=== PATIENT | female | born 1930 | race Caucasian/White ===

== ENCOUNTER 2016-08-18 13:44 | Inpatient (IN) | payer OTHER, MEDICARE ==
[~2016-08-18] VITALS: Ht 162.6 cm; Wt 65.4 kg
[~2016-08-18 13:44] MED LIST: ATOR10TA88 PO; TRIA75TA53 PO
[2016-08-18] MEDS ORDERED: SODIUM CHLORIDE 0.9% 1000ML 1,000 ML IV STA (14:44)
[2016-08-18] MEDS ORDERED: SODIUM CHLORIDE 0.9% 1000ML 500 ML IV STA (14:44)
[2016-08-18] MEDS ORDERED: PARO1TAB27 PO (15:05)
[2016-08-18] MEDS ORDERED: MAGNTAB4 PO (15:06)
--- NOTE | 2016-08-18 15:16 | DIAGNOSTIC IMAGING REPORT ---
SINGLE VIEW CHEST CLINICAL HISTORY: Weakness. Change in mental status. FINDINGS: An AP, portable, upright chest radiograph is compared to study dated 10/19/2009. Correlation is made with PET/CT dated 03/24/2014. The examination is degraded by portable technique and patient rotation. The cardiomediastinal silhouette is unremarkable. There is mild atherosclerotic calcification of the thoracic aorta. Chronic interstitial thickening is similar to previous. There is no airspace consolidation, large pleural effusion, or pneumothorax. Apical scarring is observed. The skeletal structures are osteopenic. The bony thorax is grossly intact. A surgical clip is noted in the left axilla. IMPRESSION: No active disease in the chest. Electronically signed by: Dayday Gonzalez M.D. 08/18/2016 3:15 PM Dictated Date/Time: 08/18/2016 3:13 PM
--- NOTE | 2016-08-18 15:44 | EMERGENCY ROOM VISIT NOTE ---
History Report prepared by Samanta: Alva Meng Under the Supervision of: Dr. Dayday Navarrete M.D. First contact with patient: 14:39 Chief Complaint: WEAKNESS Stated Complaint: WEAK AND DIZZY Nursing Triage Summary: Triage note: Pt ambulatory to triage. pt reports "i have a persistent edge of dizziness since being sick 3 weeks ago when i had a whole week of diarrhea." pt reports no diarrhea at this time. pt daughter reports "for the past three days she has been tired and not herself." History of Present Illness The patient is a 86 year old female who presents to the Emergency Room with complaints of intermittent lightheadedness starting about a week ago. She denies any room spinning dizziness. She has worsening symptoms with changes in position. As per daughter, the patient has been having shaking in her hands intermittently. She also complains of intermittent burning with urination. She denies chest pain, shortness of breath, numbness, tingling, blood in stool, black stools, or any other complaints. She has a history of similar symptoms occurring with low sodium and low potassium. She is unsure if she has been drinking as much fluids as she is supposed to. She was recently placed on Paxil for a treatment of chronic hot flashes. Source of History: patient Onset: about a week ago Position: other (global) Quality: other (lightheadedness) Timing: intermittent Modifying Factors (Worsening): other (changes in position) Associated Symptoms: No SOB, No chest pain, No numbness Review of Systems See HPI for pertinent positives & negatives. A total of 10 systems reviewed and were otherwise negative. Past Medical & Surgical Medical Problems: (1) Breast cancer (2) Breast cancer (3) HLD (hyperlipidemia) (4) Meniere disease (5) Urinary problem Surgical Problems: (1) H/O dilation and curettage (2) History of cataract surgery Family History Cancer Social History Smoking Status: Never Smoker Alcohol Use: none Marital Status: Occupation Status: retired Current/Historical Medications Scheduled Atorvastatin (Lipitor), 10 MG PO DAILY Magnesium Chloride-Calcium Car (Nu-Mag 71.5-119 mg), 1 TAB PO DAILY Paroxetine (Paxil), 20 MG PO DAILY Triamterene/Hctz (Maxzide 75MG/50MG), 0.5 TAB PO DAILY Allergies Coded Allergies: Alcohol (Unverified Allergy, Unknown, UNKNOWN, 08/18/16) Paclitaxel (Unverified Allergy, Unknown, UNKNOWN, 08/18/16) Polyoxyethylated [place] Oil (Unverified Allergy, Unknown, UNKNOWN, 08/18/16 ) Ezetimibe (Unverified Adverse Reaction, Unknown, "WEAK MUSCLES", 08/18/16) Physical Exam Vital Signs Date Time Temp Pulse Resp B/P Pulse Ox O2 Delivery O2 Flow Rate FiO2 08/18/16 16:35 90 18 128/78 08/18/16 14:31 104 08/18/16 14:25 98 123/71 94 104 132/67 109 111/59 08/18/16 13:53 36.8 106 18 122/72 95 Room Air Physical Exam GENERAL: Patient is in no acute distress. HEENT: No acute trauma, normocephalic atraumatic, mucous membranes moist, no nasal congestion, no scleral icterus. NECK: No stridor, no adenopathy, no meningismus, trachea is midline. LUNGS: Clear to auscultation bilaterally, no wheeze, no rhonchi, breath sounds equal. HEART: Tachycardic with a regular rhythm, no murmurs. ABDOMEN: Soft, nontender, bowel sounds positive, no hernias, no peritonitis. RECTAL: Brown stool, heme negative. EXTREMITIES: No cyanosis or edema, full range of motion of all the joints without pain or difficulty, no signs for acute trauma. NEUROLOGIC: Oriented x 3, no acute motor or sensory deficits, no focal weakness. No cerebellar deficits or pronator drift. SKIN: No rash, no jaundice, no diaphoresis. Medical Decision & Procedures ER Provider Diagnostic Interpretation: Orthostatic vital signs were slightly positive. SINGLE VIEW CHEST CLINICAL HISTORY: Weakness. Change in mental status. FINDINGS: An AP, portable, upright chest radiograph is compared to study dated 10/19/2009. Correlation is made with PET/CT dated 03/24/2014. The examination is degraded by portable technique and patient rotation. The cardiomediastinal silhouette is unremarkable. There is mild atherosclerotic calcification of the thoracic aorta. Chronic interstitial thickening is similar to previous. There is no airspace consolidation, large pleural effusion, or pneumothorax. Apical scarring is observed. The skeletal structures are osteopenic. The bony thorax is grossly intact. A surgical clip is noted in the left axilla. IMPRESSION: No active disease in the chest. Electronically signed by: Dayday Gonzalez M.D. 08/18/2016 3:15 PM Dictated Date/Time: 08/18/2016 3:13 PM Laboratory Results 08/18/16 16:37 08/18/16 15:20 Test 08/18/16 15:20 08/18/16 16:05 08/18/16 16:37 White Blood Count 4.17 K/uL (4.8-10.8) Red Blood Count 3.00 M/uL (4.2-5.4) 2.66 M/uL (4.2-5.4) Hemoglobin 8.9 g/dL (12.0-16.0) Hematocrit 26.0 % (37-47) Mean Corpuscular Volume 86.7 fL (80-100) 87.6 fL (80-100) Mean Corpuscular Hemoglobin 29.7 pg (25-34) 29.7 pg (25-34) Mean Corpuscular Hemoglobin Concent 34.2 g/dl (32-36) 33.9 g/dl (32-36) Platelet Count 42 K/uL (130-400) Mean Platelet Volume fL (7.4-10.4) Neutrophils % (Manual) 55.7 % Lymphocytes % (Manual) 17.4 % Variant Lymphocytes % (manual) 13.9 % Monocytes % (Manual) 7.8 % Eosinophils % (Manual) 4.3 % Basophils % (Manual) 0.9 % Neutrophils # (Manual) 2.32 K/uL (1.4-6.5) Total Absolute Neutrophils 2.32 K/uL (1.4-6.5) Lymphocytes # (Manual) 0.73 K/uL (1.2-3.4) Absolute Variant Lymphocytes 0.58 K/uL Total Absolute Lymphocytes 1.31 K/uL (1.2-3.4) Monocytes # (Manual) 0.33 K/uL (0.11-0.59) Eosinophils # (Manual) 0.18 K/uL (0-0.5) Basophils # (Manual) 0.04 K/uL (0-0.2) Anisocytosis PRESENT Absolute Reticulocyte Count 0.06 10^6/uL (0.02-0.10) Percent Reticulocyte Count 2.1 % (0.5-2.0) Anion Gap 11.0 mmol/L (3-11) Est Creatinine Clear Calc Drug Dose 35.1 ml/min Estimated GFR () 59.9 Estimated GFR (Non- 51.7 BUN/Creatinine Ratio 17.0 (10-20) Calcium Level 9.1 mg/dl (8.5-10.1) Magnesium Level 1.9 mg/dl (1.8-2.4) Iron Level 29 mcg/dl (35-150) Total Iron Binding Capacity 261 mcg/dl (250-450) Transferrin 213 mg/dl (200-360) Transferrin % Saturation 10 % (15-50) Total Bilirubin 0.5 mg/dl (0.2-1) Aspartate Amino Transf (AST/SGOT) 12 U/L (15-37) Alanine Aminotransferase (ALT/SGPT) 14 U/L (12-78) Alkaline Phosphatase 54 U/L (45-117) Total Protein 6.9 gm/dl (6.4-8.2) Albumin 3.6 gm/dl (3.4-5.0) Globulin 3.3 gm/dl (2.5-4.0) Albumin/Globulin Ratio 1.1 (0.9-2) Thyroid Stimulating Hormone (TSH) 2.910 uIu/ml (0.300-4.500) Urine Color YELLOW Urine Appearance CLEAR (CLEAR) Urine pH 7.5 (4.5-7.5) Urine Specific [place] 1.007 (1.000-1.030) Urine Protein NEG (NEG) Urine Glucose (UA) NEG (NEG) Urine Ketones NEG (NEG) Urine Occult Blood NEG (NEG) Urine Nitrite NEG (NEG) Urine Bilirubin NEG (NEG) Urine Urobilinogen NEG (NEG) Urine Leukocyte Esterase NEG (NEG) RDW Standard Deviation 57.3 fL (36.4-46.3) RDW Coefficient of Variation 18.1 % (11.5-14.5) Platelet Estimate DECREASED Laboratory results reviewed by me. Medications Administered Medications (Trade) Dose Ordered Sig/Alonso Route Start Time Stop Time Status Last Admin Dose Admin Sodium Chloride 500 ml @ 999 mls/hr Q31M STAT IV 08/18/16 14:44 08/18/16 15:14 DC 08/18/16 15:46 999 MLS/HR Sodium Chloride (Nss 1000ml) 1,000 ml @ 200 mls/hr Q5H STAT IV 08/18/16 14:44 08/18/16 19:43 DC 08/18/16 14:44 200 MLS/HR ECG Indication: other (Lightheadedness) Rate (beats per minute): 95 Rhythm: normal sinus Findings: no acute ischemic change, no ectopy ED Course 1439: The patient was evaluated in room C01B. A complete history and physical exam was performed. 1444: Sodium Chloride 1000 ml @ 200 mls/hr IV, Sodium Chloride 500 ml @ 999 mls/ hr IV 1715: Upon reexamination the patient is resting comfortably. I discussed results and treatment plan with the patient. She verbalizes agreement and understanding. The patient will be evaluated for further management. 172: I discussed the patient's case with NESTOR Mora with [facility]. Medical Decision Differential diagnosis includes but is not limited to dehydration, electrolyte imbalance, anemia, UTI, stroke, medication reaction. The patient has a low white count. Her hemoglobin was initially 9, a recheck showed a value of 7.9. Platelet count was also low in the 40s. No significant electrolyte abnormality, kidney failure or hepatitis. The patient appears to be in a euthyroid state. Urinalysis does not show evidence for infection. EKG shows a sinus rhythm, no acute ischemia. Orthostatic vital signs were slightly positive. Rectal exam was done, the stool was heme negative. On exam, there were no focal neurologic deficits, she was not febrile or toxic. Patient received IV saline. She has been resting comfortably. She is asymptomatic as long as she is sitting. Because of the anemia and the thrombocytopenia, I did think further workup in the hospital was warranted. I spoke to the patient and to the case technician. The on-call hospitalist was consulted. At this point, the reason for the abnormalities on the CBC is unclear. I do think that the lower hemoglobin is responsible for her lightheadedness and dizziness. Consults Time Called: 1723 Consulting Physician: NESTOR Mora with [facility] Returned Call: [phone] I discussed the patient's case with NESTOR Mora with [facility]. Impression Primary Impression: Weakness Additional Impressions: Dizziness Anemia Thrombocytopenia Scribe Attestation The scribe's documentation has been prepared under my direction and personally reviewed by me in its entirety. I confirm that the note above accurately reflects all work, treatment, procedures, and medical decision making performed by me. Departure Information Dispostion Being Evaluated By Hospitalist Referrals Breanna Ochoa DO (PCP) Patient Instructions My [facility] Problem Qualifiers
[2016-08-18 15:51] LABS: CALCIUM 9.1 mg/dl (8.5-10.1); MAGNESIUM 1.9 mg/dl (1.8-2.4); POTASSIUM 3.6 mmol/L (3.5-5.1)
[2016-08-18 16:02] LABS: ALB/GLOB RATIO 1.1 (0.9-2); THYROID STIMULATING HORMONE 2.91 uIu/ml (0.300-4.500)
[2016-08-18 16:18] LABS: ANISOCYTOSIS PRESENT; BASO ABS # 0.04 K/uL (0-0.2); BASOPHIL % 0.9 %; COMPLETE YES; EOSINOPHIL % 4.3 %; LYMPH ABS # 0.73 K/uL (1.2-3.4); LYMPHOCYTE % 17.4 %; MEAN CELL VOLUME 86.7 fL (80-100); MEAN CORPUSCULAR HEMOGLOBIN 29.7 pg (25-34); MEAN CORPUSCULAR HGB CONC 34.2 g/dl (32-36); NEUTROPHILS % 55.7 %; PLATELET COUNT 42 K/uL (130-400); PLT ESTIMATE DECREASED; VARIANT LYM ABS # 0.58 K/uL; VARIANT LYMPHOCYTE % 13.9 %; WHITE BLOOD COUNT 4.17 K/uL (4.8-10.8)
[2016-08-18 16:21] LABS: URINE APPEARANCE CLEAR (CLEAR); URINE BILIRUBIN NEG (NEG); URINE COLOR YELLOW; URINE NITRITE NEG (NEG); URINE PH 7.5 (4.5-7.5); URINE SPECIFIC GRAVITY 1.007 (1.000-1.030); UROBILINOGEN NEG (NEG); ZZUR CULT IF INDIC CLEAN CATCH NO
[2016-08-18 16:24] LABS: MANUAL MICROSCOPIC REQUIRED? NO; REVIEW REQ? NO
[2016-08-18 17:14] LABS: HEMATOCRIT 23.3 % (37-47); MEAN CELL VOLUME 87.6 fL (80-100); MEAN CORPUSCULAR HEMOGLOBIN 29.7 pg (25-34); MEAN CORPUSCULAR HGB CONC 33.9 g/dl (32-36); PLATELET COUNT 40 K/uL (130-400); PLT ESTIMATE DECREASED; RED BLOOD COUNT 2.66 M/uL (4.2-5.4); WHITE BLOOD COUNT 3.44 K/uL (4.8-10.8)
[2016-08-18] MEDS ORDERED: MAGN1TAB PO (17:57)
[2016-08-18] MEDS ORDERED: ONDANSETRON INJ 2 MG/ML 2 ML VIAL IV PRN (18:00)
[2016-08-18] MEDS ORDERED: ACETAMINOPHEN 325 MG TAB PO PRN (18:00)
--- NOTE | 2016-08-18 18:33 | History and Physical ---
History & Physical Date & Time of Service: Aug 18, 2016 at 18:00 Chief Complaint: Weak And Dizzy Primary Care Physician: Breanna Ochoa DO History of Present Illness 86 year old female who presents to the ER with reports of generalized weakness and dizziness. Patient was in [place] visiting her daughter about one month ago. While there, she developed nausea, vomiting, and diarrhea. Patient was seen in the ER there and given Cipro for a 3 day course. Her potassium and magnesium were found to be low and were replaced. Patient returned home about one week ago. GI symptoms have resolved however she feels like she has not fully recovered. She reports generalized weakness and decreased activity tolerance. Today she notes lightheadedness and dizziness with standing. She denies syncopal events. No chest pain or shortness of breath. She denies fever and chills. No abdominal pain. She reports a good appetite and no unexplained weight loss. No urinary symptoms. In the ER, patient is found to have a pancytopenia with WBC 3.4, hgb 7.9, platelets 40. Past Medical/Surgical History Medical Problems: (2) Breast cancer Permanent Comment: s/p chemo, surgery, and radiation Status: Chronic (3) HLD (hyperlipidemia) Status: Chronic (4) Meniere disease Status: Chronic Surgical Problems: (1) H/O dilation and curettage Status: Chronic (2) History of cataract surgery Status: Chronic Family History non contributory due to patient's advanced age Social History Smoking Status: Never Smoker Alcohol Use: none Immunizations History of Influenza Vaccine: Yes Influenza Vaccine Date: Mar 29, 2016 History of Tetanus Vaccine?: Yes Tetanus Immunization Date: Aug 30, 2011 History of Pneumococcal: Yes Pneumococcal Date: Sep 29, 2014 Allergies Coded Allergies: Alcohol (Unverified Allergy, Unknown, UNKNOWN, 08/18/16) Paclitaxel (Unverified Allergy, Unknown, UNKNOWN, 08/18/16) Polyoxyethylated [place] Oil (Unverified Allergy, Unknown, UNKNOWN, 08/18/16 ) Ezetimibe (Unverified Adverse Reaction, Unknown, "WEAK MUSCLES", 08/18/16) Home Medications Scheduled Atorvastatin (Lipitor), 10 MG PO DAILY Magnesium Chloride-Calcium Car (Nu-Mag 71.5-119 mg), 1 TAB PO DAILY Paroxetine (Paxil), 20 MG PO DAILY Triamterene/Hctz (Maxzide 75MG/50MG), 0.5 TAB PO DAILY Review of Systems 10 point review of systems was completed with the pertinent positives and negatives noted per the HPI Physical Exam Vital Signs Date Time Temp Pulse Resp B/P Pulse Ox O2 Delivery O2 Flow Rate FiO2 08/18/16 16:35 90 18 128/78 08/18/16 14:31 104 08/18/16 14:25 98 123/71 94 104 132/67 109 111/59 08/18/16 13:53 36.8 106 18 122/72 95 Room Air please refer to Dr. Chase's addendum for physical exam Diagnostics Laboratory Results Results Past 24 Hours Test 08/18/16 15:20 08/18/16 16:05 08/18/16 16:37 Range/Units White Blood Count 4.17 3.44 4.8-10.8 K/uL Red Blood Count 3.00 2.66 4.2-5.4 M/uL Hemoglobin 8.9 7.9 12.0-16.0 g/dL Hematocrit 26.0 23.3 37-47 % Mean Corpuscular Volume 86.7 87.6 80-100 fL Mean Corpuscular Hemoglobin 29.7 29.7 25-34 pg Mean Corpuscular Hemoglobin Concent 34.2 33.9 32-36 g/dl Platelet Count 42 40 130-400 K/uL RDW Standard Deviation 56.7 57.3 36.4-46.3 fL RDW Coefficient of Variation 18.1 18.1 11.5-14.5 % Neutrophils % (Manual) 55.7 % Lymphocytes % (Manual) 17.4 % Variant Lymphocytes % (manual) 13.9 % Monocytes % (Manual) 7.8 % Eosinophils % (Manual) 4.3 % Basophils % (Manual) 0.9 % Neutrophils # (Manual) 2.32 1.4-6.5 K/uL Total Absolute Neutrophils 2.32 1.4-6.5 K/uL Lymphocytes # (Manual) 0.73 1.2-3.4 K/uL Absolute Variant Lymphocytes 0.58 K/uL Total Absolute Lymphocytes 1.31 1.2-3.4 K/uL Monocytes # (Manual) 0.33 0.11-0.59 K/uL Eosinophils # (Manual) 0.18 0-0.5 K/uL Basophils # (Manual) 0.04 0-0.2 K/uL Platelet Estimate DECREASED DECREASED Anisocytosis PRESENT Sodium Level 135 136-145 mmol/L Potassium Level 3.6 3.5-5.1 mmol/L Chloride Level 99 98-107 mmol/L Carbon Dioxide Level 25 21-32 mmol/L Anion Gap 11.0 3-11 mmol/L Blood Urea Nitrogen 17 7-18 mg/dl Creatinine 1.00 0.60-1.20 mg/dl Est Creatinine Clear Calc Drug Dose 35.1 ml/min Estimated GFR () 59.9 Estimated GFR (Non- 51.7 BUN/Creatinine Ratio 17.0 10-20 Random Glucose 104 70-99 mg/dl Calcium Level 9.1 8.5-10.1 mg/dl Magnesium Level 1.9 1.8-2.4 mg/dl Total Bilirubin 0.5 0.2-1 mg/dl Aspartate Amino Transf (AST/SGOT) 12 15-37 U/L Alanine Aminotransferase (ALT/SGPT) 14 12-78 U/L Alkaline Phosphatase 54 45-117 U/L Total Protein 6.9 6.4-8.2 gm/dl Albumin 3.6 3.4-5.0 gm/dl Globulin 3.3 2.5-4.0 gm/dl Albumin/Globulin Ratio 1.1 0.9-2 Thyroid Stimulating Hormone (TSH) 2.910 0.300-4.500 uIu/ml Urine Color YELLOW Urine Appearance CLEAR CLEAR Urine pH 7.5 4.5-7.5 Urine Specific [place] 1.007 1.000-1.030 Urine Protein NEG NEG Urine Glucose (UA) NEG NEG Urine Ketones NEG NEG Urine Occult Blood NEG NEG Urine Nitrite NEG NEG Urine Bilirubin NEG NEG Urine Urobilinogen NEG NEG Urine Leukocyte Esterase NEG NEG Diagnostic Radiology CXR IMPRESSION: No active disease in the chest. Impression Assessment and Plan PANCYTOPENIA - admit to med/surg - patient presenting with generalized weakness and dizziness/lightheadedness with standing - found to have pancytopenia on labs; outpatient chart review showed anemia and thrombocytopenia from labs 02/2016 (hgb 11.3, platelets 64, normal WBC) which was felt to be due to Bactrim use; no repeat labs have showed normalization of hgb or platelets - etiology currently unclear; no recent medication use to suggest cause of pancytopenia today - peripheral smear ordered - hgb today 7.9 - no role for transfusion - to complete work up, will order anemia labs - consult hematology HLD - continue statin MENIERE DISEASE - will hold Maxzide for now DVT PROPHYLAXIS - SCDs due to anemia CODE STATUS - Patient is a DNR as per my discussion with her. DISPO - In my clinical judgment this beneficiary meets acute admission criteria, established by [facility], that includes being hospitalized through two midnights. I have seen, examined and discussed this patient with Terri Courtney and I agree with the above note. Patient presented with generalized weakness and dizziness for the past several days to week. Vitals notable for +orthostatics. PE: General- awake; alert; NAD Eyes- EOMI; no scleral icterus ENT- clear OC/OP; dry/chapped lips Neck- no palpable LAD; no stridor; trachea midline Lungs- CTA bilaterally; no wheezes/crackles Heart- RRR; no m/r/g Abdomen- soft; NTND; nBS Back- no gross abnormalities Extremities- no c/c/e; no deformity Neuro- strength 5/5 bilateral UE and LE; sensation to light touch intact and equal throughout; cn ii-xii grossly intact Skin- no appreciable rash or bruise Labs, CXR and EKG reviewed. Pancytopenia: Unclear etiology at the present. Anemia w/u pending. Peripheral smear, immature platelet fraction pending. No offending medications identified. Patient did have what sounds like gastroenteritis about a month ago, but that resolved. Hematology consulted for additional input and determine need for bone marrow biopsy. CBC's have been abnormal since fall 2015; last normal CBC was 2013. Orthostasis: Patient received 1.5L IVF's with resolution of symptoms. Monitor orthostatic vitals. No clear body losses of fluid. Patient reports normal PO intake. Agree with remainder of plan outlined above. VTE Prophylaxis VTE Risk Assessment Done? Y/N: Yes Risk Level: Moderate
[2016-08-18 19:36] VITALS: BP 154/78; PULSE 92; TEMP 36.6; O2SAT 93
[2016-08-18 19:45] LABS: TOTAL IRON BINDING CAPACITY 261 mcg/dl (250-450)
[2016-08-18 20:10] VITALS: Ht 162.6 cm; Wt 65.4 kg
[2016-08-18] MEDS: PAROXETINE 20 MG TAB PO SCH (21:29)
[2016-08-18] MEDS: MAGNESIUM CHLORIDE 64MG DELAYED REL TAB PO SCH (21:33)
[2016-08-18 21:39] VITALS: BP_SYST 128; BP_SYST 146; BP_DIAS 71; BP_DIAS 76; PULSE 104; PULSE 96; O2SAT 95; O2SAT 96
[2016-08-18 21:40] VITALS: BP 135/76; PULSE 95; O2SAT 95
[2016-08-18 23:48] VITALS: BP 97/58; PULSE 86; TEMP 36.7; O2SAT 95
[2016-08-19 07:09] VITALS: BP 126/77; PULSE 89; TEMP 36.6; O2SAT 95
[2016-08-19 07:37] LABS: MEAN CORPUSCULAR HGB CONC 33.3 g/dl (32-36)
[2016-08-19] MEDS ORDERED: PAROXETINE 20 MG TAB PO SCH (08:00)
[2016-08-19] MEDS ORDERED: MAGNESIUM CHLORIDE 64MG DELAYED REL TAB PO SCH (08:00)
[2016-08-19 08:07] LABS: BUN/CREATININE RATIO 16.9 (10-20); CALCIUM 9.3 mg/dl (8.5-10.1); CREATININE 0.83 mg/dl (0.60-1.20); POTASSIUM 3.8 mmol/L (3.5-5.1)
[2016-08-19] MEDS: ATORVASTATIN 10 MG TAB PO SCH (08:41)
[2016-08-19 08:59] LABS: HEMATOCRIT 25.5 % (37-47); MEAN CELL VOLUME 87.3 fL (80-100); MEAN CORPUSCULAR HEMOGLOBIN 29.1 pg (25-34); RED BLOOD COUNT 2.92 M/uL (4.2-5.4); WHITE BLOOD COUNT 2.58 K/uL (4.8-10.8)
[2016-08-19 09:13] LABS: PLATELET COUNT 39 K/uL (130-400)
[2016-08-19 09:22] LABS: BASO ABS # 0.05 K/uL (0-0.2); BASOPHIL % 1.8 %; COMPLETE YES; EOSINOPHIL % 0.9 %; IPF 11.6 % (0.9-8.3); LYMPH ABS # 0.85 K/uL (1.2-3.4); MYELOCYTE % 3.6 %; NEUTROPHILS % 50.9 %
[2016-08-19 10:30] VITALS: BP 138/77; PULSE 102; O2SAT 95
[2016-08-19 15:37] VITALS: BP 123/70; PULSE 86; TEMP 36.7; O2SAT 96
--- NOTE | 2016-08-19 16:13 | Medical Consult ---
Consultation Date of Consultation: Aug 19, 2016. Attending Physician: Hilario Smith MD Reason for Consultation: Pancytopenia- chronic, noted at least since 01/2016 History of Present Illness Ms. Mendez is A pleasant 86-year-old female who is new to the consulting Hematology service. 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 She reported to the emergency room at [facility] yesterday at the direction of her family physician for her pancytopenia, including her family physician sitting "all of her workup could be achieved with hospitalization." In addition, she reported feeling generally weak and fatigued. Her anemia and thrombocytopenia were 1st noticed by her family physician in January 2016, but were attributed to Bactrim use for respiratory infection at that time. Her most recent CBC prior to January 2016 was in 2013 and within normal limits. Hematologic parameters since January 2016 are as follows: 01/18/2016: WBC 6190, HGB 10.7, HCT 32.7, MCV 88.9, PLT 40, ANC 3280, metamyelocytes and myelocytes and nucleated RBCs on differential 01/21/2016: WBC 5630, HGB 10.5, HCT 32.4, MCV 89, PLT 43, ANC 2480, metamyelocytes seen on differential 01/29/2016: WBC 5760, HGB 11, HCT 33.7, MCV 89.6, PLT 70, ANC 2640 02/05/2016: WBC 5530, HGB 11.3, HCT 35.7, MCV 91.8, PLT 64, no differential Additional history obtained from the patient at bedside. She states the only event in the past month notable to mention was a gastrointestinal illness involving nausea, vomiting and diarrhea that lasted for 6 days while she was out visiting her daughter in [place]. She was evaluated in the emergency room out there and stool cultures and Clostridium difficile assays were sent, reportedly negative. She was treated with ciprofloxacin for 3 days. Since this time, she reports a good appetite and has not had nausea, vomiting, bowel irregularity, bloody or black stools. She occasionally has hemorrhoidal bleeding. She states her energy has been lacking in the past 1 month since this illness. She reports her weight remains stable. She does note a left posterior cervical lymph node present for an unspecified amount time, tender only to touch. She does not report any other adenopathy. She does report a cough, that she attributes to postnasal drip from sinuses. She has noted dyspnea with exertion, such as climbing hill. She has not had headache. She does report occasional positional lightheadedness, but no loss of consciousness. She does report hot flashes since 2005, quite bothersome and has been on numerous different agents. She is now on Paxil 10 milligram daily. She states she is not on any new medications since last summer 2015, aside from Bactrim, which was stopped when the pancytopenia was noted. Family History Cancer Social History Smoking Status: Never Smoker Alcohol Use: none Allergies Coded Allergies: Alcohol (Unverified Allergy, Unknown, UNKNOWN, 08/18/16) Paclitaxel (Unverified Allergy, Unknown, UNKNOWN, 08/18/16) Polyoxyethylated Gravette Oil (Unverified Allergy, Unknown, UNKNOWN, 08/18/16 ) Ezetimibe (Unverified Adverse Reaction, Unknown, "WEAK MUSCLES", 08/18/16) Current Inpatient Medications Current Inpatient Medications Medications (Trade) Dose Ordered Sig/Alonso Route Start Time Stop Time Status Last Admin Dose Admin Acetaminophen (Tylenol Tab) 650 mg Q4H PRN PO 08/18/16 18:00 09/17/16 17:59 Ondansetron HCl (Zofran Inj) 4 mg Q6H PRN IV 08/18/16 18:00 09/17/16 17:59 Atorvastatin Calcium (Lipitor Tab) 10 mg DAILY PO 08/19/16 08:00 09/18/16 08:59 08/19/16 08:41 10 MG Magnesium Chloride (Slow-Mag Tab) 64 mg PM PO 08/18/16 21:00 09/17/16 20:59 08/18/16 21:33 64 MG Paroxetine HCl (pAXil TAB) 10 mg PM PO 08/18/16 21:00 09/17/16 20:59 08/18/16 21:29 10 MG Review of Systems Constitutional: + fatigue, + problem reported (frequent hot flashes), No chills , No fever, No weight loss Respiratory: + cough (attrbiuted to PND), + dyspnea on exertion, No dyspnea at rest Cardiovascular: No edema, No palpitations Abdomen: No GI bleeding (except occasional hemorrhoidal bleeding), No constipation, No diarrhea, No nausea, No pain, No vomiting Genitourinary - Female: No hematuria Neurologic: No vertigo Hematologic / Lymphatic: + swollen lymph nodes, No abnormal bleeding/bruising ( left posterior cervical), No clotting problems Physical Exam Date Time Temp Pulse Resp B/P Pulse Ox O2 Delivery O2 Flow Rate FiO2 08/19/16 15:37 36.7 86 18 123/70 96 Room Air 08/19/16 10:30 102 95 08/19/16 08:50 Room Air 08/19/16 07:09 36.6 89 18 126/77 95 Room Air 08/19/16 00:00 Room Air 08/18/16 23:48 36.7 86 18 97/58 95 Room Air 08/18/16 21:40 95 135/76 95 Room Air 08/18/16 21:39 104 128/71 95 Room Air 08/18/16 21:39 96 146/76 96 Room Air 08/18/16 20:10 Room Air 08/18/16 19:36 36.6 92 18 154/78 93 Room Air 08/18/16 16:35 90 18 128/78 General Appearance: WD/WN, no apparent distress ENT: hearing grossly normal Neck: supple, + adenopathy present (small left posterior cervical) Respiratory/Chest: lungs clear, normal breath sounds, no respiratory distress, no accessory muscle use Cardiovascular: regular rate, rhythm, no edema Abdomen/GI: normal bowel sounds, non tender, soft, no organomegaly Extremities/Musculoskelatal: no calf tenderness, no pedal edema Neurologic/Psych: alert, oriented x 3 Skin: warm/dry, no rash Lymphatic: no adenopathy (of axillary or inguinal areas) Laboratory Results 08/18/16 15:20 Red Blood Count 3.00, Mean Corpuscular Volume 86.7, Mean Corpuscular Hemoglobin 29.7, Mean Corpuscular Hemoglobin Concent 34.2, Mean Platelet Volume 08/18/16 16:37 08/19/16 06:41 Red Blood Count 2.92, Mean Corpuscular Volume 87.3, Mean Corpuscular Hemoglobin 29.1, Mean Corpuscular Hemoglobin Concent 33.3 08/18/16 15:20 08/19/16 06:41 Test 08/18/16 15:20 08/18/16 16:05 08/18/16 16:37 08/19/16 06:41 White Blood Count 4.17 K/uL (4.8-10.8) 2.58 K/uL (4.8-10.8) Red Blood Count 3.00 M/uL (4.2-5.4) 2.66 M/uL (4.2-5.4) 2.92 M/uL (4.2-5.4) Hemoglobin 8.9 g/dL (12.0-16.0) 8.5 g/dL (12.0-16.0) Hematocrit 26.0 % (37-47) 25.5 % (37-47) Mean Corpuscular Volume 86.7 fL (80-100) 87.6 fL (80-100) 87.3 fL (80-100) Mean Corpuscular Hemoglobin 29.7 pg (25-34) 29.7 pg (25-34) 29.1 pg (25-34) Mean Corpuscular Hemoglobin Concent 34.2 g/dl (32-36) 33.9 g/dl (32-36) 33.3 g/dl (32-36) Platelet Count 42 K/uL (130-400) 39 K/uL (130-400) Mean Platelet Volume fL (7.4-10.4) RDW Standard Deviation 56.7 fL (36.4-46.3) 57.3 fL (36.4-46.3) 56.6 fL (36.4-46.3) RDW Coefficient of Variation 18.1 % (11.5-14.5) 18.1 % (11.5-14.5) 18.1 % (11.5-14.5) Neutrophils % (Manual) 55.7 % 50.9 % Lymphocytes % (Manual) 17.4 % 33.0 % Variant Lymphocytes % (manual) 13.9 % Monocytes % (Manual) 7.8 % 9.8 % Eosinophils % (Manual) 4.3 % 0.9 % Basophils % (Manual) 0.9 % 1.8 % Neutrophils # (Manual) 2.32 K/uL (1.4-6.5) 1.31 K/uL (1.4-6.5) Total Absolute Neutrophils 2.32 K/uL (1.4-6.5) 1.31 K/uL (1.4-6.5) Lymphocytes # (Manual) 0.73 K/uL (1.2-3.4) 0.85 K/uL (1.2-3.4) Absolute Variant Lymphocytes 0.58 K/uL Total Absolute Lymphocytes 1.31 K/uL (1.2-3.4) 0.85 K/uL (1.2-3.4) Monocytes # (Manual) 0.33 K/uL (0.11-0.59) 0.25 K/uL (0.11-0.59) Eosinophils # (Manual) 0.18 K/uL (0-0.5) 0.02 K/uL (0-0.5) Basophils # (Manual) 0.04 K/uL (0-0.2) 0.05 K/uL (0-0.2) Hypogranular Neutrophils 2+ 2+ Platelet Estimate DECREASED DECREASED Anisocytosis PRESENT Peripheral Blood Smear Path Consult Absolute Reticulocyte Count 0.06 10^6/uL (0.02-0.10) Percent Reticulocyte Count 2.1 % (0.5-2.0) Anion Gap 11.0 mmol/L (3-11) 11.0 mmol/L (3-11) Est Creatinine Clear Calc Drug Dose 35.1 ml/min 42.3 ml/min Estimated GFR () 59.9 75.1 Estimated GFR (Non- 51.7 64.8 BUN/Creatinine Ratio 17.0 (10-20) 16.9 (10-20) Calcium Level 9.1 mg/dl (8.5-10.1) 9.3 mg/dl (8.5-10.1) Magnesium Level 1.9 mg/dl (1.8-2.4) Iron Level 29 mcg/dl (35-150) Total Iron Binding Capacity 261 mcg/dl (250-450) Transferrin 213 mg/dl (200-360) Transferrin % Saturation 10 % (15-50) Total Bilirubin 0.5 mg/dl (0.2-1) Aspartate Amino Transf (AST/SGOT) 12 U/L (15-37) Alanine Aminotransferase (ALT/SGPT) 14 U/L (12-78) Alkaline Phosphatase 54 U/L (45-117) Total Protein 6.9 gm/dl (6.4-8.2) Albumin 3.6 gm/dl (3.4-5.0) Globulin 3.3 gm/dl (2.5-4.0) Albumin/Globulin Ratio 1.1 (0.9-2) Thyroid Stimulating Hormone (TSH) 2.910 uIu/ml (0.300-4.500) Urine Color YELLOW Urine Appearance CLEAR (CLEAR) Urine pH 7.5 (4.5-7.5) Urine Specific [place] 1.007 (1.000-1.030) Urine Protein NEG (NEG) Urine Glucose (UA) NEG (NEG) Urine Ketones NEG (NEG) Urine Occult Blood NEG (NEG) Urine Nitrite NEG (NEG) Urine Bilirubin NEG (NEG) Urine Urobilinogen NEG (NEG) Urine Leukocyte Esterase NEG (NEG) Myelocytes % 3.6 % Myelocytes # 0.09 K/uL (0-0) Immature Platelet Fraction 11.6 % (0.9-8.3) Vitamin B12 Level 589 pg/mL (211-911) 25-Hydroxy Vitamin D Total 22.4 ng/ml (30-100) Folate 8.87 ng/mL (>5.38) Assessment & Plan 1. Pancytopenia- first noted in in 01/2016 with anemia and thrombocytopenia. On admission, all 3 cell lines are decreased, but without major complication such as infection or bleeding. Her Hgb has trended down about 2 g/dL from baseline back in January 2016, PLT has remained fairly stable as lowest PLT in 01/18 was around 40K. Neutropenia appears new in onset since last check in 01/18. Her work up has included: peripheral blood smear, which was unrevealing for a cause but postulated infection, drug exposure or bone marrow disorder. Her vitamin B 12 and folate levels are normal. Reticulocytes at 2%, immature platelet fraction mildly elevated, which may be seen in platelet destruction, but no specific to an etiology for her pancytopenia. She does have somewhat decreased iron and trans sat; will add ferritin to labs and FOBT after discussing with Dr. Ortega. Discussed with patient that her prior exposure to chemotherapeutics could be implicated in the development of pancytopenia in the past 7 months. She is not on medication currently that would be indicated for pancytopenia. Discussed she will need a bone marrow examination for further work up and this can be done in outpatient setting. Patient seemed to want all of her testing done inpatient, so will discuss with Dr. Ortega about having done during hospitalization. Again, stressed to patient that this not necessary to be done inpatient. Continue to monitor CBC daily. 2. Left posterior cervical lymph node- uncertain of onset, not worrisome on exam. Continue to monitor. 3. Prior h/o [id number] hormonal/Her-2 + breast cancer- treatment as detailed above. No clinical evidence of recurrent disease. She is not reporting symptoms suspicious for bone marrow infiltration by malignancy. Attending Note I have seen and examined the patient an discussed with Natasha Ash PA-C an agree with above note. 86 year old female with history of breast cancer in 2006 s/p surgery an she also received adjuvant chemotherapy and adjuvant endocrine therapy. She had some gastroenteritis symptoms about a month ago but states tat this has resolved. She has noticed decrease energy over the past several months. She denies any epistaxis or gingival bleeding or hemoptysis or melena or hematochezia or fever or chills. She states that she had some lightheadedness but sates but feels better today. No dizziness a his time and states that she gets up slowly. She denies any shortness of breath or chest pain or headache or abdominal pain. She has pancytopenia. CBC w/ diff abnormal since fall 2015. Gen:: well developed, well nourished female in no acute distress HEENT: anicteric, no pallor Lungs: CTAB, no wheezes rales or rhonchi CV: S1 S2 nl RRR no murmur or gallop Abd: +BS soft Nontender nondistended, no guarding or rebound Ext: no edema nontender Neuro: Alert and oriented Labs: reviewed CXR reviewed Impression: 86 year ol female with pancytopenia. Recommend check ferritin level and stool occult blood as with the low iron and transferrin saturation, iron deficiency may be contribution to the anemia. She can take oral iron supplement As she has pancytopenia and prior history of chemotherapy, I recommend bone marrow aspirate and biopsy for further evaluation to rule out out MDS or other etiology. I discussed bone marrow aspirate and biopsy with her and advised her of the benefits an risks and provided her with information on bone marrow aspirate and biopsy. She states that she is agreeable to bone marrow aspirate and biopsy and she can follow up in the office and have bone marrow aspirate an biopsy in the office next week. Avoid any trauma or falls or injury. Discussed with Dr Smith. Thank you for allowing us to participate in the care of this patient.
--- NOTE | 2016-08-19 16:51 | Progress Note ---
Internal Med Progress Note Date of Service: Aug 19, 2016. Provider Documentation: SUBJECTIVE: Patient is seen and examined at bedside. Currently states has some generalized weakness but other feels well. Denies any chest pain, SOB, palpitations, dizziness. Offers no other complaints. Family at bedside. OBJECTIVE: Vital Signs-as noted below Physical Exam: General Appearance:Moderately built and nourished, no apparent distress Head: normocephalic, Atraumatic Eyes: normal inspection, EOMI, PERRLA Neck: supple, Trachea midline Respiratory/Chest: Normal breath sounds, CTA, No accessory muscle use Cardiovascular: S1, S2, No murmur Abdomen/GI:Soft, Non tender, Bowel sounds present Extremities/Musculoskelatal:normal inspection, no edema Neurologic/Psych:AAOX3, grossly no focal neurological deficits Skin: normal color, warm Lab data as noted below. ASSESSMENT & PLAN: PANCYTOPENIA patient presented with generalized weakness and dizziness/lightheadedness with standing H/O ? Viral gastroenteritis 1 month ago Unclear etiology: To R/O myelodysplastic syndrome secondary to chemotherapy received for breast cancer Could be multifactorial: Iron studies reviewed. Check Ferritin levels, FOBT Patient denies any obvious source of bleeding Vit B12, folate levels:wnl Monitor counts May need bone marrow biopsy as outpatient\ Appreciate Hemeoncology input Vit D deficiency: Will start replacement therapy Need recheck Vit D levels as outpatient HLD continue statin MENIERE DISEASE Hold Maxzide for now H/O Breast Cancer: S/P chemotherapy DVT PX: SCDs CODE STATUS DNR DISPOSITION: Plan to discharge home tomorrow if stable Vital Signs: Date Time Temp Pulse Resp B/P Pulse Ox O2 Delivery O2 Flow Rate FiO2 08/19/16 15:37 36.7 86 18 123/70 96 Room Air 08/19/16 10:30 102 95 08/19/16 08:50 Room Air 08/19/16 07:09 36.6 89 18 126/77 95 Room Air 08/19/16 00:00 Room Air 08/18/16 23:48 36.7 86 18 97/58 95 Room Air 08/18/16 21:40 95 135/76 95 Room Air 08/18/16 21:39 104 128/71 95 Room Air 08/18/16 21:39 96 146/76 96 Room Air 08/18/16 20:10 Room Air 08/18/16 19:36 36.6 92 18 154/78 93 Room Air Lab Results: Results Past 24 Hours Test 08/19/16 06:41 08/19/16 18:07 Range/Units White Blood Count 2.58 4.8-10.8 K/uL Red Blood Count 2.92 4.2-5.4 M/uL Hemoglobin 8.5 12.0-16.0 g/dL Hematocrit 25.5 37-47 % Mean Corpuscular Volume 87.3 80-100 fL Mean Corpuscular Hemoglobin 29.1 25-34 pg Mean Corpuscular Hemoglobin Concent 33.3 32-36 g/dl Platelet Count 39 130-400 K/uL RDW Standard Deviation 56.6 36.4-46.3 fL RDW Coefficient of Variation 18.1 11.5-14.5 % Neutrophils % (Manual) 50.9 % Lymphocytes % (Manual) 33.0 % Monocytes % (Manual) 9.8 % Eosinophils % (Manual) 0.9 % Basophils % (Manual) 1.8 % Myelocytes % 3.6 % Neutrophils # (Manual) 1.31 1.4-6.5 K/uL Total Absolute Neutrophils 1.31 1.4-6.5 K/uL Lymphocytes # (Manual) 0.85 1.2-3.4 K/uL Total Absolute Lymphocytes 0.85 1.2-3.4 K/uL Monocytes # (Manual) 0.25 0.11-0.59 K/uL Eosinophils # (Manual) 0.02 0-0.5 K/uL Basophils # (Manual) 0.05 0-0.2 K/uL Myelocytes # 0.09 0-0 K/uL Hypogranular Neutrophils 2+ Immature Platelet Fraction 11.6 0.9-8.3 % Sodium Level 137 136-145 mmol/L Potassium Level 3.8 3.5-5.1 mmol/L Chloride Level 100 98-107 mmol/L Carbon Dioxide Level 26 21-32 mmol/L Anion Gap 11.0 3-11 mmol/L Blood Urea Nitrogen 14 7-18 mg/dl Creatinine 0.83 0.60-1.20 mg/dl Est Creatinine Clear Calc Drug Dose 42.3 ml/min Estimated GFR () 75.1 Estimated GFR (Non- 64.8 BUN/Creatinine Ratio 16.9 10-20 Random Glucose 99 70-99 mg/dl Calcium Level 9.3 8.5-10.1 mg/dl Vitamin B12 Level 589 211-911 pg/mL 25-Hydroxy Vitamin D Total 22.4 30-100 ng/ml Folate 8.87 >5.38 ng/mL
[2016-08-19] MEDS: PAROXETINE 20 MG TAB PO SCH (20:03)
[2016-08-19] MEDS: MAGNESIUM CHLORIDE 64MG DELAYED REL TAB PO SCH (20:03)
[2016-08-19 23:49] VITALS: BP 105/61; PULSE 87; TEMP 36.9; O2SAT 96
[2016-08-20 06:30] LABS: MEAN CORPUSCULAR HGB CONC 33.1 g/dl (32-36)
[2016-08-20 06:48] LABS: HEMATOCRIT 27.5 % (37-47); MEAN CORPUSCULAR HEMOGLOBIN 29.4 pg (25-34); RED BLOOD COUNT 3.09 M/uL (4.2-5.4); WHITE BLOOD COUNT 2.91 K/uL (4.8-10.8)
[2016-08-20 07:07] LABS: PLATELET COUNT 37 K/uL (130-400)
[2016-08-20 07:08] LABS: BASO ABS # 0.05 K/uL (0-0.2); BASOPHIL % 1.8 %; COMPLETE YES; EOSINOPHIL % 0.9 %; LARGE PLATELETS 2+; LYMPH ABS # 0.92 K/uL (1.2-3.4); LYMPHOCYTE % 31.6 %; MICROCYTOSIS PRESENT; MYELOCYTE % 0.9 %; NEUTROPHILS % 51.6 %; PLT ESTIMATE DECREASED; TEAR DROP CELLS 1+
[2016-08-20 07:28] VITALS: BP 115/68; PULSE 85; TEMP 36.6; O2SAT 94
[2016-08-20 07:32] VITALS: O2SAT 94
[2016-08-20] MEDS ORDERED: ERGOCALCIFEROL 50,000 INTER.UNIT CAP PO SCH (08:00)
[2016-08-20] MEDS: ATORVASTATIN 10 MG TAB PO SCH (08:23)
[2016-08-20 12:02] VITALS: BP 115/68; PULSE 85; TEMP 36.6; O2SAT 94
--- NOTE | 2016-08-20 12:32 | Progress Note ---
Internal Med Progress Note Date of Service: Aug 20, 2016. Provider Documentation: SUBJECTIVE: Patient is seen and examined at bedside. States her weakness has much improved. Denies any chest pain, SOB, palpitations,dizziness. Offers no other complaints. Family at bedside. Eager to get discharged OBJECTIVE: Vital Signs-as noted below Physical Exam: General Appearance:Moderately built and nourished, no apparent distress Head: normocephalic, Atraumatic Eyes: normal inspection, EOMI, PERRLA Neck: supple, Trachea midline Respiratory/Chest: Normal breath sounds, CTA, No accessory muscle use Cardiovascular: S1, S2, No murmur Abdomen/GI:Soft, Non tender, Bowel sounds present Extremities/Musculoskelatal:normal inspection, no edema Neurologic/Psych:AAOX3, grossly no focal neurological deficits Skin: normal color, warm Lab data as noted below. ASSESSMENT & PLAN: PANCYTOPENIA patient presented with generalized weakness and dizziness/lightheadedness with standing H/O ? Viral gastroenteritis 1 month ago Unclear etiology: To R/O myelodysplastic syndrome secondary to chemotherapy received for breast cancer Could be multifactorial: Iron studies reviewed. Ferritin levels: wnl FOBT:Negative Patient denies any obvious source of bleeding Vit B12, folate levels:wnl Monitor counts, Hb improved:9.1 today WBCs and Platelets persistently low May need bone marrow biopsy as outpatient\ Appreciate Hemeoncology input Vit D deficiency: Continue Vit D replacement therapy Need recheck Vit D levels as outpatient HLD continue statin MENIERE DISEASE Hold Maxzide for now H/O Breast Cancer: S/P chemotherapy DVT PX: SCDs CODE STATUS DNR DISPOSITION: Plan to discharge home today Follow up with on 08/26/16 at 9:20AM Follow up with Hemeoncology on to get bone marrow biopsy as outpatient.( Please call for appointment) Get repeat Vit D levels checked in 8 weeks as outpatient and follow up with Vital Signs: Date Time Temp Pulse Resp B/P Pulse Ox O2 Delivery O2 Flow Rate FiO2 08/20/16 12:02 36.6 85 18 94 Room Air 08/20/16 07:32 94 Room Air 08/20/16 07:28 36.6 85 18 115/68 94 Room Air 08/20/16 00:00 Room Air 08/19/16 23:49 36.9 87 20 105/61 96 Room Air 08/19/16 16:00 Room Air 08/19/16 15:37 36.7 86 18 123/70 96 Room Air Lab Results: Results Past 24 Hours Test 08/19/16 18:36 08/20/16 05:50 Range/Units Ferritin 197.6 8.0-388.0 ng/ml White Blood Count 2.91 4.8-10.8 K/uL Red Blood Count 3.09 4.2-5.4 M/uL Hemoglobin 9.1 12.0-16.0 g/dL Hematocrit 27.5 37-47 % Mean Corpuscular Volume 89.0 80-100 fL Mean Corpuscular Hemoglobin 29.4 25-34 pg Mean Corpuscular Hemoglobin Concent 33.1 32-36 g/dl Platelet Count 37 130-400 K/uL RDW Standard Deviation 58.4 36.4-46.3 fL RDW Coefficient of Variation 18.1 11.5-14.5 % Neutrophils % (Manual) 51.6 % Lymphocytes % (Manual) 31.6 % Monocytes % (Manual) 13.2 % Eosinophils % (Manual) 0.9 % Basophils % (Manual) 1.8 % Myelocytes % 0.9 % Neutrophils # (Manual) 1.50 1.4-6.5 K/uL Total Absolute Neutrophils 1.50 1.4-6.5 K/uL Lymphocytes # (Manual) 0.92 1.2-3.4 K/uL Total Absolute Lymphocytes 0.92 1.2-3.4 K/uL Monocytes # (Manual) 0.38 0.11-0.59 K/uL Eosinophils # (Manual) 0.03 0-0.5 K/uL Basophils # (Manual) 0.05 0-0.2 K/uL Myelocytes # 0.03 0-0 K/uL Platelet Estimate DECREASED Large Platelets 2+ Microcytosis PRESENT Tear Drop Cells 1+ Stool Occult Blood NEGATIVE NEGATIVE
[2016-08-20] MEDS ORDERED: VTMD PO (12:34)
--- NOTE | 2016-08-20 12:37 | Discharge Instructions ---
Discharge Instructions Date of Service Aug 20, 2016. Admission Reason for Admission: Pancytopenia Discharge Discharge Diagnosis / Problem: Pancytopenia: ? MDS Discharge Goals Goal(s): Decrease discomfort, Improve function Activity Recommendations Activity Limitations: resume your previous activity Exercise/Sports Limitations: as tolerated . Instructions / Follow-Up Instructions / Follow-Up Follow up with on 08/26/16 at 9:20AM Follow up with Hemeoncology on to get bone marrow biopsy as outpatient.( Please call for appointment) Get repeat Vit D levels checked in 8 weeks as outpatient and follow up with Current Hospital Diet Patient's current hospital diet: Regular Diet Discharge Diet Recommended Diet: Regular Diet Pending Studies Studies pending at discharge: no Medical Emergencies . Who to Call and When: Medical Emergencies: If at any time you feel your situation is an emergency, please call 911 immediately. . Non-Emergent Contact Non-Emergency issues call your: Primary Care Provider, Oncologist Call Non-Emergent contact if: you have a fever, your pain is not controlled, your pain is worsening, your pain is unusual for you, you have any medication questions If you develop any worsening weakness, notice any bleeding. . . "Provider Documentation" section prepared by Hilario Smith. VTE Core Measure Inpt VTE Proph given/why not?: SCD's
--- NOTE | 2016-08-20 12:42 | Discharge Summary ---
Discharge Summary Date of Service Aug 20, 2016. Discharge Summary Admission Date: Aug 18, 2016 at 17:49 Discharge Date: Aug 20, 2016 Discharge Disposition: Home Principal Diagnosis: Pancytopenia: ? MDS Procedures: CXR: No active disease in the chest. Consultations: Oncology Pending Studies/Follow-Up: Follow up with on 08/26/16 at 9:20AM Follow up with Hemeoncology on to get bone marrow biopsy as outpatient.( Please call for appointment) Get repeat Vit D levels checked in 8 weeks as outpatient and follow up with Medication Reconciliation New Medications: Ergocalciferol (Vitamin D) 50,000 Interunit Cap 32023 INTERUNIT PO Sa@0800 for 60 Days, #7 CAP Continued Medications: Atorvastatin (Lipitor) 10 Mg Tab 10 MG PO DAILY, 0 Refills Magnesium Chloride-Calcium Car (Nu-Mag 71.5-119 mg) 1 Tab Tab 1 TAB PO DAILY Paroxetine (Paxil) 20 Mg Tab 20 MG PO DAILY, TAB Triamterene/Hctz (Maxzide 75MG/50MG) Tab 0.5 TAB PO DAILY, 0 Refills Admission Information HPI (per Admitting provider): 86 year old female who presents to the ER with reports of generalized weakness and dizziness. Patient was in [place] visiting her daughter about one month ago. While there, she developed nausea, vomiting, and diarrhea. Patient was seen in the ER there and given Cipro for a 3 day course. Her potassium and magnesium were found to be low and were replaced. Patient returned home about one week ago. GI symptoms have resolved however she feels like she has not fully recovered. She reports generalized weakness and decreased activity tolerance. Today she notes lightheadedness and dizziness with standing. She denies syncopal events. No chest pain or shortness of breath. She denies fever and chills. No abdominal pain. She reports a good appetite and no unexplained weight loss. No urinary symptoms. In the ER, patient is found to have a pancytopenia with WBC 3.4, hgb 7.9, platelets 40. Physical Exam (per Admitting): General- awake; alert; NAD Eyes- EOMI; no scleral icterus ENT- clear OC/OP; dry/chapped lips Neck- no palpable LAD; no stridor; trachea midline Lungs- CTA bilaterally; no wheezes/crackles Heart- RRR; no m/r/g Abdomen- soft; NTND; nBS Back- no gross abnormalities Extremities- no c/c/e; no deformity Neuro- strength 5/5 bilateral UE and LE; sensation to light touch intact and equal throughout; cn ii-xii grossly intact Skin- no appreciable rash or bruise Hospital Course PANCYTOPENIA patient presented with generalized weakness and dizziness/lightheadedness with standing H/O ? Viral gastroenteritis 1 month ago Unclear etiology: To R/O myelodysplastic syndrome secondary to chemotherapy received for breast cancer Could be multifactorial: Iron studies reviewed. Ferritin levels: wnl FOBT:Negative Patient denies any obvious source of bleeding Vit B12, folate levels:wnl Monitor counts, Hb improved:9.1 today WBCs and Platelets persistently low May need bone marrow biopsy as outpatient\\ Appreciate Hemeoncology input Vit D deficiency: Continue Vit D replacement therapy Need recheck Vit D levels as outpatient HLD continue statin MENIERE DISEASE Hold Maxzide for now H/O Breast Cancer: S/P chemotherapy DVT PX: SCDs CODE STATUS DNR DISPOSITION: Plan to discharge home today Follow up with on 08/26/16 at 9:20AM Follow up with Hemeoncology on to get bone marrow biopsy as outpatient.( Please call for appointment) Get repeat Vit D levels checked in 8 weeks as outpatient and follow up with Total time spent on discharge = This includes examination of the patient, discharge planning, medication reconciliation, and communication with other providers. Discharge Instructions Discharge Instructions Date of Service Aug 20, 2016. Admission Reason for Admission: Pancytopenia Discharge Discharge Diagnosis / Problem: Pancytopenia: ? MDS Discharge Goals Goal(s): Decrease discomfort, Improve function Activity Recommendations Activity Limitations: resume your previous activity Exercise/Sports Limitations: as tolerated . Instructions / Follow-Up Instructions / Follow-Up Follow up with on 08/26/16 at 9:20AM Follow up with Hemeoncology on to get bone marrow biopsy as outpatient.( Please call for appointment) Get repeat Vit D levels checked in 8 weeks as outpatient and follow up with Current Hospital Diet Patient's current hospital diet: Regular Diet Discharge Diet Recommended Diet: Regular Diet Pending Studies Studies pending at discharge: no Medical Emergencies . Who to Call and When: Medical Emergencies: If at any time you feel your situation is an emergency, please call 911 immediately. . Non-Emergent Contact Non-Emergency issues call your: Primary Care Provider, Oncologist Call Non-Emergent contact if: you have a fever, your pain is not controlled, your pain is worsening, your pain is unusual for you, you have any medication questions If you develop any worsening weakness, notice any bleeding. . . "Provider Documentation" section prepared by Hilario Smith. VTE Core Measure Inpt VTE Proph given/why not?: SCD's
== END 2016-08-20 13:06 | disposition home or self-care (01) | DRG 810 ==
LOC: ENRESERVTM → ENRESERVDT → C.EDB 13:46 → C.4E 17:49 → EDBEDREQ 18:33
PROVIDERS: ADMIT Internal Medicine; ATTEND Internal Medicine
DX: D61.818 Other pancytopenia (principal); D46.9 Myelodysplastic syndrome, unspecified; K52.9 Noninfective gastroenteritis and colitis, unspecified; D69.6 Thrombocytopenia, unspecified; N18.3 Chronic kidney disease, stage 3 (moderate); E78.5 Hyperlipidemia, unspecified; Z66 Do not resuscitate; Z85.3 Personal history of malignant neoplasm of breast; E55.9 Vitamin D deficiency, unspecified; H81.09 Meniere's disease, unspecified ear

== ENCOUNTER 2016-08-27 12:27 | Inpatient (IN) | payer OTHER, MEDICARE ==
[~2016-08-27] VITALS: Ht 162.6 cm; Wt 64.5 kg
[2016-08-27] VITALS (10 sets, daily range): BP systolic 124–150; BP diastolic 72–88; PULSE 88–105; TEMP 36.5–37; O2SAT 93–97; Ht 162.6 cm; Wt 64.5 kg
[~2016-08-27 12:27] MED LIST changes: +MAGN1TAB PO; +PARO1TAB27 PO; +VTMD PO
--- NOTE | 2016-08-27 13:11 | EMERGENCY ROOM VISIT NOTE ---
History Report prepared by Samanta: Lucie Brantley Under the Supervision of: Dr. Basim Jaffe M.D. First contact with patient: 12:45 Chief Complaint: WEAKNESS Stated Complaint: WEAKNESS, FATIGUE Nursing Triage Summary: feeling overall weak today, states had a bone marrow biopsy on Mon, waiting on results, had weakness two weeks ago with same symptoms. daughter states that the pt was baking and took a walk yesterday, today totally different. History of Present Illness The patient is an 86 year old female who presents to the Emergency Room via family with complaints of worsening fatigue with onset two weeks ago. The patient has a history of breast cancer and notes that her white blood cells and platelets are low as well. She had a bone biopsy performed 3 days ago and has not yet been informed of the results. The patient has not yet been transfused as her providers are waiting on the results of the bone biopsy. Today, the patient is more tired. She states that this is very unusual for her. The patient has had petechiae and a cough. Starting this morning, she has had some increased head and facial pressure. The patient denies fevers, recent falls, rash, chest pain, shortness of breath. Source of History: patient Onset: 2 weeks ago Position: other (global ) Quality: other (fatigue ) Timing: worsening Associated Symptoms: + cough, No SOB, No chest pain, No fevers, No rash Note: She has had some head and facial pressure. The patient has noticed some petechiae. Review of Systems See HPI for pertinent positives & negatives. A total of 10 systems reviewed and were otherwise negative. Past Medical & Surgical Medical Problems: (1) Breast cancer (2) Breast cancer (3) HLD (hyperlipidemia) (4) Meniere disease (5) Urinary problem Surgical Problems: (1) H/O dilation and curettage (2) History of cataract surgery Old medical records were reviewed. Nurse's notes were reviewed and I agree with. Family History Cancer Social History Smoking Status: Never Smoker Alcohol Use: none Current/Historical Medications Scheduled Atorvastatin (Lipitor), 10 MG PO DAILY Ergocalciferol (Vitamin D), 50,000 INTERUNIT PO Sa@0800 Magnesium Chloride (Slow-Mag Tab), 64 MG PO DAILY Paroxetine (Paxil), 20 MG PO DAILY Allergies Coded Allergies: Alcohol (Unverified Allergy, Unknown, UNKNOWN, 08/18/16) Paclitaxel (Unverified Allergy, Unknown, UNKNOWN, 08/18/16) Polyoxyethylated [place] Oil (Unverified Allergy, Unknown, UNKNOWN, 08/18/16 ) Ezetimibe (Unverified Adverse Reaction, Unknown, "WEAK MUSCLES", 08/18/16) Physical Exam Vital Signs Date Time Temp Pulse Resp B/P Pulse Ox O2 Delivery O2 Flow Rate FiO2 08/27/16 14:30 108 20 109/77 97 Room Air 08/27/16 12:49 100 08/27/16 12:30 37.0 100 20 123/76 94 Room Air Physical Exam General: Non ill appearing older female, in no acute distress. HEENT: Normal cephalic atraumatic. Pupils are equal round and reactive to light. Sclera Anicteric. Extraocular movements are intact. Conjunctivae are pale. Oropharynx is pink with moist mucous membranes. No swelling of the mouth lips or tongue. Neck: Supple with a midline trachea. No meningeal signs or stiffness, no JVD or bruits. No Stridor. Chest: Clear to auscultation bilaterally. No wheezes or rhonchi. No increased work of breathing. Heart: regular rate and rhythm. Abdomen: Soft nontender, nondistended without rebound guarding or rigidity. Extremities: No cyanosis clubbing or edema. No calf tenderness or assymetry Spine/Back. Non tender to palpation. No CVA tenderness Skin: Good turgor without rashes. Occasional scattered petechiae. Neurologic exam: Cranial nerves two through 12 are intact. Motor and sensation are intact and symmetrical throughout. Medical Decision & Procedures ER Provider Diagnostic Interpretation: CT results as stated below per my review and radiologist interpretation: CT SCAN OF THE BRAIN WITHOUT IV CONTRAST CLINICAL HISTORY: Headache. COMPARISON STUDY: No priors. TECHNIQUE: Unenhanced axial CT scan of the brain is performed from the vertex to the skull base. CT DOSE: 537.48 mGy.cm FINDINGS: Brain parenchyma: There are age-related involutional changes noting moderate patchy subcortical and periventricular microangiopathic change. There is no hemorrhage, mass effect, or evidence of acute territorial ischemia by CT criteria. Ortega-white matter is preserved. No extra-axial fluid collection is seen. Ventricles, sulci, cisterns: Prominent secondary to involutional change. Intracranial vasculature: There is atherosclerotic calcification of the cavernous carotid arteries. Calvarium: Unremarkable. A small dermal calcification is incidentally noted in the right parietal scalp. Sinuses and mastoids: The visualized paranasal sinuses are clear. The mastoid air cells are well pneumatized. Orbits: The bony orbits are grossly intact. There are bilateral ocular lens implants. IMPRESSION: There is no hemorrhage, mass effect, or evidence of acute territorial ischemia by CT criteria. Electronically signed by: Dayday Gonzalez M.D. 08/27/2016 1:32 PM Dictated Date/Time: 08/27/2016 1:30 PM Laboratory Results 08/27/16 13:10 Red Blood Count 2.79, Mean Corpuscular Volume 87.5, Mean Corpuscular Hemoglobin 29.4, Mean Corpuscular Hemoglobin Concent 33.6 08/27/16 13:10 Test 08/27/16 13:10 White Blood Count 3.85 K/uL (4.8-10.8) Red Blood Count 2.79 M/uL (4.2-5.4) Hemoglobin 8.2 g/dL (12.0-16.0) Hematocrit 24.4 % (37-47) Mean Corpuscular Volume 87.5 fL (80-100) Mean Corpuscular Hemoglobin 29.4 pg (25-34) Mean Corpuscular Hemoglobin Concent 33.6 g/dl (32-36) Platelet Count 46 K/uL (130-400) RDW Standard Deviation 59.0 fL (36.4-46.3) RDW Coefficient of Variation 18.5 % (11.5-14.5) Neutrophils % (Manual) 67.8 % Lymphocytes % (Manual) 9.6 % Monocytes % (Manual) 16.5 % Eosinophils % (Manual) 5.2 % Basophils % (Manual) 0.9 % Neutrophils # (Manual) 2.61 K/uL (1.4-6.5) Total Absolute Neutrophils 2.61 K/uL (1.4-6.5) Lymphocytes # (Manual) 0.37 K/uL (1.2-3.4) Total Absolute Lymphocytes 0.37 K/uL (1.2-3.4) Monocytes # (Manual) 0.64 K/uL (0.11-0.59) Eosinophils # (Manual) 0.20 K/uL (0-0.5) Basophils # (Manual) 0.03 K/uL (0-0.2) Hypogranular Neutrophils 1+ Platelet Estimate DECREASED Large Platelets 3+ Polychromasia 1+ Tear Drop Cells 1+ Anion Gap 9.0 mmol/L (3-11) Est Creatinine Clear Calc Drug Dose 39.6 ml/min Estimated GFR () 60.6 Estimated GFR (Non- 52.3 BUN/Creatinine Ratio 19.7 (10-20) Calcium Level 9.2 mg/dl (8.5-10.1) Total Bilirubin 0.6 mg/dl (0.2-1) Direct Bilirubin 0.2 mg/dl (0-0.2) Aspartate Amino Transf (AST/SGOT) 16 U/L (15-37) Alanine Aminotransferase (ALT/SGPT) 16 U/L (12-78) Alkaline Phosphatase 48 U/L (45-117) Total Protein 6.7 gm/dl (6.4-8.2) Albumin 3.3 gm/dl (3.4-5.0) Lipase 152 U/L (73-393) Laboratory studies as stated above per my review. ECG Indication: weakness Rate (beats per minute): 100 Rhythm: normal sinus Findings: no acute ischemic change, no ectopy Comparison ECG Date: August 18, 2016 Change: no significant change ED Course 1247: Past medical records reviewed. The patient was evaluated in room B12, and a complete history and physical examination were performed. 1408: I reevaluated the patient and updated her on her lab results. 1415: I discussed the case with Dr. Sr (Hematology); she advised that the patient should be admitted to rule out an infection and that the patient should receive a unit of blood. 1425: Upon reevaluation, the patient is resting. I discussed the results and treatment plan with the patient. She verbalized agreement of the treatment plan. The patient will be evaluated for further management. 1428: I discussed the case with Angela Martin PA-C ([facility]); she will further evaluate the patient. Medical Decision Differentials include, but are not limited to; anemia, infection, thrombocytopenia, electrolyte or metabolic abnormality. This patient comes in described above. She's had pancytopenia and is in the midst of a workup for isi.t she had a recent bone marrow biopsy. Today, she feels more tired and she's been she's had no fever. She's no focal numbness or weakness .she had a little bit of sinus pressure earlier but denies any headache now. I did a CAT scan of her head no acute intracranial hemorrhage or process. Blood work was obtained IV access was established and the right arm. She was reassessed frequently. EKG does not suggest acute coronary syndrome or arrhythmia. Her hemoglobin is low at 8.2 she was 9.1 week ago. Her platelets are stable. Her white count is non-neutropenic. I did discuss the case at length with Dr. Ortega, her lever operator. She feels the patient should be observed to rule out infection and also give her unit of blood transfusion which may make her feel well. She did a recent bone marrow which showed MDS likely. I did consult the [facility] hospitalist and they will meet her for these measures. Consults Time Called: 1412 Consulting Physician: Dr. Sr (Hematology) Returned Call: [phone] I discussed the case with Dr. Sr (Hematology); she advised that the patient should be admitted to rule out an infection and that the patient should receive a unit of blood. Additional Consults: Time Called: 1420 Consulted Physician: Angela Martin PA-C ([facility]) Returned Call: [phone] Additional Comments: I discussed the case with Angela Martin PA-C ([facility]); she will further evaluate the patient. Impression Primary Impression: Anemia Additional Impressions: Pancytopenia MDS (myelodysplastic syndrome) Weakness Scribe Attestation The scribe's documentation has been prepared under my direction and personally reviewed by me in its entirety. I confirm that the note above accurately reflects all work, treatment, procedures, and medical decision making performed by me. Departure Information Dispostion Being Evaluated By Hospitalist Referrals Breanna Ochoa DO (PCP) Patient Instructions My [facility] Problem Qualifiers
[2016-08-27] MEDS ORDERED: MAGNTAB4 PO (13:19)
--- NOTE | 2016-08-27 13:33 | DIAGNOSTIC IMAGING REPORT ---
CT SCAN OF THE BRAIN WITHOUT IV CONTRAST CLINICAL HISTORY: Headache. COMPARISON STUDY: No priors. TECHNIQUE: Unenhanced axial CT scan of the brain is performed from the vertex to the skull base. CT DOSE: 537.48 mGy.cm FINDINGS: Brain parenchyma: There are age-related involutional changes noting moderate patchy subcortical and periventricular microangiopathic change. There is no hemorrhage, mass effect, or evidence of acute territorial ischemia by CT criteria. Ortega-white matter is preserved. No extra-axial fluid collection is seen. Ventricles, sulci, cisterns: Prominent secondary to involutional change. Intracranial vasculature: There is atherosclerotic calcification of the cavernous carotid arteries. Calvarium: Unremarkable. A small dermal calcification is incidentally noted in the right parietal scalp. Sinuses and mastoids: The visualized paranasal sinuses are clear. The mastoid air cells are well pneumatized. Orbits: The bony orbits are grossly intact. There are bilateral ocular lens implants. IMPRESSION: There is no hemorrhage, mass effect, or evidence of acute territorial ischemia by CT criteria. Electronically signed by: Dayday Gonzalez M.D. 08/27/2016 1:32 PM Dictated Date/Time: 08/27/2016 1:30 PM
[2016-08-27 13:34] LABS: MEAN CORPUSCULAR HGB CONC 33.6 g/dl (32-36)
[2016-08-27 13:41] LABS: HEMATOCRIT 24.4 % (37-47); MEAN CELL VOLUME 87.5 fL (80-100); MEAN CORPUSCULAR HEMOGLOBIN 29.4 pg (25-34); RED BLOOD COUNT 2.79 M/uL (4.2-5.4); WHITE BLOOD COUNT 3.85 K/uL (4.8-10.8)
[2016-08-27 13:42] LABS: BUN/CREATININE RATIO 19.7 (10-20); CALCIUM 9.2 mg/dl (8.5-10.1); CREATININE 0.99 mg/dl (0.60-1.20)
[2016-08-27 13:53] LABS: BASO ABS # 0.03 K/uL (0-0.2); BASOPHIL % 0.9 %; COMPLETE YES; EOSINOPHIL % 5.2 %; LARGE PLATELETS 3+; LYMPH ABS # 0.37 K/uL (1.2-3.4); LYMPHOCYTE % 9.6 %; NEUTROPHILS % 67.8 %; PLATELET COUNT 46 K/uL (130-400); PLT ESTIMATE DECREASED; POLYCHROMASIA 1+; TEAR DROP CELLS 1+
[2016-08-27] MEDS ORDERED: ACETAMINOPHEN 325 MG TAB PO PRN (15:15)
[2016-08-27] MEDS ORDERED: ONDANSETRON INJ 2 MG/ML 2 ML VIAL IV PRN (15:15)
--- NOTE | 2016-08-27 15:21 | History and Physical ---
History & Physical Date & Time of Service: Aug 27, 2016 at 15:13 Chief Complaint: Weakness, Fatigue Primary Care Physician: Breanna Ochoa DO History of Present Illness Source: patient, family, clinic records, hospital records Patient seen and examined. 86 year old female with PMHx of HLD, and recent pancytopenia working diagnosis of MDS presents to the ED complaining of worsening generalized weakness x 1 day. Patient was recently admitted last week for pancytopenia. She was discharged home for outpatient bone marrow biopsy. Daughter reports that yesterday the patient was active cooking and working in the house. Today the patient was very weak and lethargic. She feels unsteady on her feet. She reports some lightheadedness and states she just "doesn't have her pep" so she returned to the ED. She denies fevers, chills, URI symptoms, chest pain, SOB, nausea, vomiting, diarrhea, dysuria, calf pain and edema. She denies any bleeding issues. In the ED VS are stable, CBC is similar to previous CBC last week. Dr. Sr is consulted by ED who suggest panculture and 1 unit of PRBCs for possible symptomatic anemia. Patient will be admitted for further workup and treatment. Past Medical/Surgical History Medical Problems: (1) Breast cancer Status: Resolved (2) Breast cancer Permanent Comment: s/p chemo, surgery, and radiation Status: Chronic (3) HLD (hyperlipidemia) Status: Chronic (4) Meniere disease Status: Chronic (5) Urinary problem Status: Resolved Surgical Problems: (1) H/O dilation and curettage Status: Chronic (2) History of cataract surgery Status: Chronic Family History Cancer Social History Smoking Status: Never Smoker Alcohol Use: none Housing status: lives with family Occupational Status: retired Immunizations History of Influenza Vaccine: Yes Influenza Vaccine Date: Mar 29, 2016 History of Tetanus Vaccine?: Yes Tetanus Immunization Date: Aug 30, 2011 History of Pneumococcal: Yes Pneumococcal Date: Sep 29, 2014 Allergies Coded Allergies: Alcohol (Unverified Allergy, Unknown, UNKNOWN, 08/18/16) Paclitaxel (Unverified Allergy, Unknown, UNKNOWN, 08/18/16) Polyoxyethylated [place] Oil (Unverified Allergy, Unknown, UNKNOWN, 08/18/16 ) Ezetimibe (Unverified Adverse Reaction, Unknown, "WEAK MUSCLES", 08/18/16) Home Medications Scheduled Atorvastatin (Lipitor), 10 MG PO DAILY Ergocalciferol (Vitamin D), 50,000 INTERUNIT PO Sa@0800 Magnesium Chloride (Slow-Mag Tab), 64 MG PO DAILY Paroxetine (Paxil), 20 MG PO DAILY Review of Systems See above for pertinent positives & negatives. A total of 10 systems reviewed and were otherwise negative. Physical Exam Vital Signs Date Time Temp Pulse Resp B/P Pulse Ox O2 Delivery O2 Flow Rate FiO2 08/27/16 14:30 108 20 109/77 97 Room Air 08/27/16 12:49 100 08/27/16 12:30 37.0 100 20 123/76 94 Room Air General Appearance: + pertinent finding (Very pleasant WD/WN 86 year old female lying in bed in NAD with family at bedside ) Head: normocephalic, atraumatic Eyes: PERRL, EOMI, sclerae normal ENT: hearing grossly normal, pharynx normal Neck: supple, no JVD Respiratory/Chest: chest non-tender, lungs clear, normal breath sounds, no respiratory distress, no accessory muscle use Cardiovascular: regular rate, rhythm, no edema, no gallop, no JVD, no murmur, normal peripheral pulses Abdomen/GI: normal bowel sounds, non tender, soft Back: normal inspection, no muscle spasm Extremities/Musculoskelatal: no calf tenderness, normal capillary refill, no pedal edema Neurologic/Psych: alert, oriented x 3, + pertinent finding (no focal deficits ) Skin: normal color, warm/dry, no rash Lymphatic: no adenopathy Diagnostics Laboratory Results Results Past 24 Hours Test 08/27/16 13:10 08/27/16 15:10 Range/Units White Blood Count 3.85 4.8-10.8 K/uL Red Blood Count 2.79 4.2-5.4 M/uL Hemoglobin 8.2 12.0-16.0 g/dL Hematocrit 24.4 37-47 % Mean Corpuscular Volume 87.5 80-100 fL Mean Corpuscular Hemoglobin 29.4 25-34 pg Mean Corpuscular Hemoglobin Concent 33.6 32-36 g/dl Platelet Count 46 130-400 K/uL RDW Standard Deviation 59.0 36.4-46.3 fL RDW Coefficient of Variation 18.5 11.5-14.5 % Neutrophils % (Manual) 67.8 % Lymphocytes % (Manual) 9.6 % Monocytes % (Manual) 16.5 % Eosinophils % (Manual) 5.2 % Basophils % (Manual) 0.9 % Neutrophils # (Manual) 2.61 1.4-6.5 K/uL Total Absolute Neutrophils 2.61 1.4-6.5 K/uL Lymphocytes # (Manual) 0.37 1.2-3.4 K/uL Total Absolute Lymphocytes 0.37 1.2-3.4 K/uL Monocytes # (Manual) 0.64 0.11-0.59 K/uL Eosinophils # (Manual) 0.20 0-0.5 K/uL Basophils # (Manual) 0.03 0-0.2 K/uL Hypogranular Neutrophils 1+ Platelet Estimate DECREASED Large Platelets 3+ Polychromasia 1+ Tear Drop Cells 1+ Sodium Level 135 136-145 mmol/L Potassium Level 4.0 3.5-5.1 mmol/L Chloride Level 96 98-107 mmol/L Carbon Dioxide Level 30 21-32 mmol/L Anion Gap 9.0 3-11 mmol/L Blood Urea Nitrogen 20 7-18 mg/dl Creatinine 0.99 0.60-1.20 mg/dl Est Creatinine Clear Calc Drug Dose 39.6 ml/min Estimated GFR () 60.6 Estimated GFR (Non- 52.3 BUN/Creatinine Ratio 19.7 10-20 Random Glucose 113 70-99 mg/dl Calcium Level 9.2 8.5-10.1 mg/dl Total Bilirubin 0.6 0.2-1 mg/dl Direct Bilirubin 0.2 0-0.2 mg/dl Aspartate Amino Transf (AST/SGOT) 16 15-37 U/L Alanine Aminotransferase (ALT/SGPT) 16 12-78 U/L Alkaline Phosphatase 48 45-117 U/L Total Protein 6.7 6.4-8.2 gm/dl Albumin 3.3 3.4-5.0 gm/dl Lipase 152 73-393 U/L Microbiology Results 08/27/16 Blood Culture, Ordered Pending 08/27/16 Blood Culture, Ordered Pending Diagnostic Radiology CT HEAD Per radiologist read: IMPRESSION: There is no hemorrhage, mass effect, or evidence of acute territorial ischemia by CT criteria. EKG NSR 100 BPM, Qtc 464 Impression Assessment and Plan 86 year old female with working diagnosis of MDS presents to the ED with generalized weakness GENERALIZED WEAKNESS -admit med/surg -? cause consider symptomatic anemia, infection, electrolyte abnormalities and other causes -CT head negative -Per Dr. Easley recommendation give 1 unit PRBCs -Check UA, CXR, Flu, blood cultures -check Mg -check TSH -CBC, PRP, Mg in AM -PT/OT evals PANCYTOPENIA -Hgb 8.2, Platelets 46 -no active bleeding -follows with Dr. Sr, consult placed -CBC in AM HLD -continue Statin DEPRESSION -continue Paxil H/O BREAST CA -s/p chemotherapy DVT PROPHYLAXIS: SCDs RE: pancytopenia CODE STATUS: LEVEL 5 DNR per discussion with the patient DISPO:In my clinical judgment this beneficiary meets acute admission criteria, established by [facility], that includes being hospitalized through two midnights. Patient seen in collaboration with Dr. Godinez Attending Addendum Pt was seen and examined with family member at bedside. Agreed with Angela DE LA VEGA physical exam, assessment and plan. 86 year old female with PMHx of dyslipidemia , Anemia, pancytopenia and recently diagnosis of MDS presents to the ED for generalized weakness. Pt said that this morning she woke up and feels very weak and low energy. she said that she called Dr. Sr that recommended her to go to the ER. Denies any chest pain, palpitation and SOB. General- No acute distress Head- atraumatic Eyes- PERRL, EOMI ENT- oropharynx clear Neck- supple, no JVD Lungs- No wheezing, No crackles Heart- regular rhythm; no murmur Abdomen- normal bowel sounds, soft Extremities- no calf tenderness A/P GENERALIZED WEAKNESS Possible due to anemia will need to r/o other etiology such as infection CT head negative ER physician discussed with Dr. Easley that recommended to transfuse 1 unit PRBC Consult hematology Will check UA, CXR, Flu, blood cultures, MG and TSH Will do PT/OT eval Please refer to Angela DE LA VEGA's documentation for other problems. Licha Godinez MD VTE Prophylaxis VTE Risk Assessment Done? Y/N: Yes Risk Level: Moderate
[2016-08-27 15:36] LABS: MAGNESIUM 1.9 mg/dl (1.8-2.4); THYROID STIMULATING HORMONE 2.42 uIu/ml (0.300-4.500)
[2016-08-27] MEDS ORDERED: IV FLUIDS COMPLETED PRN (15:45)
[2016-08-27 15:52] LABS: MANUAL MICROSCOPIC REQUIRED? NO; REVIEW REQ? NO; URINE APPEARANCE CLOUDY (CLEAR); URINE BILIRUBIN NEG (NEG); URINE COLOR YELLOW; URINE NITRITE NEG (NEG); URINE PH 6.5 (4.5-7.5); UROBILINOGEN NEG (NEG); ZZUR CULT IF INDIC CLEAN CATCH NO
--- NOTE | 2016-08-27 16:13 | DIAGNOSTIC IMAGING REPORT ---
SINGLE VIEW CHEST CLINICAL HISTORY: Generalized weakness. FINDINGS: An AP, portable, upright chest radiograph is compared to study dated 08/18/2016. Correlation is made with PET/CT dated 03/24/2014. The examination is degraded by portable technique and patient rotation. The cardiomediastinal silhouette is unremarkable. There is mild atherosclerotic calcification of the thoracic aorta. Chronic interstitial thickening is similar to previous. Dependent atelectasis is noted. There is no airspace consolidation typical for pneumonia, large pleural effusion, or pneumothorax. Apical scarring is observed. The skeletal structures are osteopenic. The bony thorax is grossly intact. A surgical clip is noted in the left axilla. IMPRESSION: No active disease in the chest and no significant change from 08/18/2016. Electronically signed by: Dayday Gonzalez M.D. 08/27/2016 4:11 PM Dictated Date/Time: 08/27/2016 4:11 PM
[2016-08-27 19:19] LABS: INFLUENZA A PCR Neg for Influ A (NEG); INFLUENZA B PCR Neg for Influ B (NEG)
[2016-08-28 04:41] VITALS: BP 127/75; PULSE 95; TEMP 36.7; O2SAT 94
[2016-08-28 06:21] LABS: HEMATOCRIT 27.3 % (37-47); MEAN CELL VOLUME 88.6 fL (80-100); MEAN CORPUSCULAR HEMOGLOBIN 29.9 pg (25-34); MEAN CORPUSCULAR HGB CONC 33.7 g/dl (32-36); RED BLOOD COUNT 3.08 M/uL (4.2-5.4); WHITE BLOOD COUNT 2.55 K/uL (4.8-10.8)
[2016-08-28 06:29] LABS: PROTHROMBIN TIME (PATIENT) 10.8 SECONDS (9.0-12.0)
[2016-08-28 06:52] LABS: BUN/CREATININE RATIO 16.2 (10-20); CALCIUM 8.7 mg/dl (8.5-10.1); CREATININE 0.83 mg/dl (0.60-1.20); MAGNESIUM 2.2 mg/dl (1.8-2.4); POTASSIUM 3.7 mmol/L (3.5-5.1)
[2016-08-28 07:03] LABS: PLATELET COUNT 35 K/uL (130-400)
[2016-08-28 07:04] VITALS: BP 120/72; PULSE 69; TEMP 36.3; O2SAT 95
[2016-08-28 07:04] LABS: BASO ABS # 0.02 K/uL (0-0.2); BASOPHIL % 0.9 %; EOSINOPHIL % 0.9 %; GIANT PLATELETS 1+; LARGE PLATELETS 3+; LYMPH ABS # 0.62 K/uL (1.2-3.4); LYMPHOCYTE % 24.3 %; NEUTROPHILS % 64.3 %; PLT ESTIMATE DECREASED
[2016-08-28] MEDS ORDERED: MAGNESIUM CHLORIDE 64MG DELAYED REL TAB PO SCH (08:00)
[2016-08-28] MEDS ORDERED: PAROXETINE 20 MG TAB PO SCH (08:00)
[2016-08-28] MEDS ORDERED: ATORVASTATIN 10 MG TAB PO SCH (08:00)
[2016-08-28 11:01] VITALS: BP 100/66; PULSE 99; TEMP 36.3; O2SAT 94
[2016-08-28 15:07] VITALS: BP 106/66; PULSE 93; TEMP 36.5; O2SAT 94
--- NOTE | 2016-08-28 19:06 | Discharge Instructions ---
Discharge Instructions Date of Service Aug 28, 2016. Admission Reason for Admission: Anemia, Pancytopenia Discharge Discharge Diagnosis / Problem: ANEMIA /PANCYTOPENIA /MYELOPDYSPLASTIC SYNDROME Discharge Goals Goal(s): Improve function, Increase independence, Therapeutic intervention Activity Recommendations Activity Limitations: resume your previous activity Exercise/Sports Limitations: as tolerated Shower/Bathe: no limitations . Instructions / Follow-Up Instructions / Follow-Up HOSPITAL FOLLOW UP WITH DR KAHN IN A WEEK , OFFICE WILL CALL WITH APPOINTMENT LAB WORK : CBC WITH NEXT PHYSICIAN VISIT PLEASE NOTIFY YOUR FAMILY PHYSICIAN IF YOU START TO EXPERIENCE SIMILAR SYMPTOM OF WEAKNESS, FATIGUE , SHORTNESS OF BREATH -SIGN OF LOW BLOOD COUNT /ANEMIA FOLLOW UP ON 09/08/2016 @ 2:[address] Dominic Ortega MD Hematology/Oncology [facility] DO NOT TAKE ASPIRIN, ALEVE, MOTRIN , NAPROXEN , IBUPROFEN, ADVIL -MAY CAUSE YOU TO HAVE BLEEDING AVOID ALL NSAID - PHARMACY BEFORE BUYING OVER THE COUNTER PAIN MEDICATIONS NOTIFY YOUR FAMILY PHYSICIAN IF YOU NOTICE BLACK /TARRY STOOL -SIGN OF BLEEDING IN STOMACH Current Hospital Diet Patient's current hospital diet: Regular Diet Discharge Diet Recommended Diet: Regular Diet Pending Studies Studies pending at discharge: yes List of pending studies: LAB WORK : COMPLETE BLOOD COUNT TO ASSESS ANEMIA Medical Emergencies . Who to Call and When: Medical Emergencies: If at any time you feel your situation is an emergency, please call 911 immediately. . Non-Emergent Contact Non-Emergency issues call your: Primary Care Provider . . "Provider Documentation" section prepared by Sally Little. VTE Core Measure Inpt VTE Proph given/why not?: KASHMIR [place] Drug Monitoring Program Search Results: no issues identified
[2016-08-28 19:14] VITALS: BP 106/66; PULSE 93; TEMP 36.5; O2SAT 94
--- NOTE | 2016-08-28 19:19 | Discharge Summary ---
Discharge Summary Date of Service Aug 28, 2016. Discharge Summary Admission Date: Aug 27, 2016 at 15:22 Discharge Date: Aug 28, 2016 Discharge Disposition: Home Principal Diagnosis: ANEMIA /PANCYTOPENIA /MYELODYSPLASTIC SYNDROME Medication Reconciliation Continued Medications: Atorvastatin (Lipitor) 10 Mg Tab 10 MG PO DAILY, 0 Refills Ergocalciferol (Vitamin D) 50,000 Interunit Cap 74157 INTERUNIT PO Sa@0800 for 60 Days, #7 CAP Magnesium Chloride (Slow-Mag Tab) 64 Mg Tabcr 64 MG PO DAILY Paroxetine (Paxil) 20 Mg Tab 20 MG PO DAILY, TAB Referrals At Discharge Follow up Referrals: Physician Referral - 09/08/16 with Dominic Ortega MD Admission Information HPI (per Admitting provider): Patient seen and examined. 86 year old female with PMHx of HLD, and recent pancytopenia working diagnosis of MDS presents to the ED complaining of worsening generalized weakness x 1 day. Patient was recently admitted last week for pancytopenia. She was discharged home for outpatient bone marrow biopsy. Daughter reports that yesterday the patient was active cooking and working in the house. Today the patient was very weak and lethargic. She feels unsteady on her feet. She reports some lightheadedness and states she just "doesn't have her pep" so she returned to the ED. She denies fevers, chills, URI symptoms, chest pain, SOB, nausea, vomiting, diarrhea, dysuria, calf pain and edema. She denies any bleeding issues. In the ED VS are stable, CBC is similar to previous CBC last week. Dr. Sr is consulted by ED who suggest panculture and 1 unit of PRBCs for possible symptomatic anemia. Patient will be admitted for further workup and treatment. Physical Exam (per Admitting): General Appearance: + pertinent finding (Very pleasant WD/WN 86 year old female lying in bed in NAD with family at bedside ) Head: normocephalic, atraumatic Eyes: PERRL, EOMI, sclerae normal ENT: hearing grossly normal, pharynx normal Neck: supple, no JVD Respiratory/Chest: chest non-tender, lungs clear, normal breath sounds, no respiratory distress, no accessory muscle use Cardiovascular: regular rate, rhythm, no edema, no gallop, no JVD, no murmur , normal peripheral pulses Abdomen/GI: normal bowel sounds, non tender, soft Back: normal inspection, no muscle spasm Extremities/Musculoskelatal: no calf tenderness, normal capillary refill, no pedal edema Neurologic/Psych: alert, oriented x 3, + pertinent finding (no focal deficits ) Skin: normal color, warm/dry, no rash Lymphatic: no adenopathy Hospital Course feels much better today energy has improved no ACEVEDO on exertion,no dizzy spell or lightheadedness had 1 units of PRBC transfusion yesterday walked with PT in hallway -ambulated 200 ft without any discomfort daughter present at bedside pt is at her baseline,will like to go home tonight if possible P/E: General -no sign of distress, very pleasant HEENT-sclera non icteric HT: regular S1/S2 Lungs-CTA ,no wheeze or rales Abdomen; -soft, non tender EXT: no lower ext edema, no rash or deformity Neuro: no focal deficit , AAO X3 A/P : ANEMIA /MYELODYSPLASTIC SYNDROME : -recently diagnosed, seen in Heme onc office with Dr Ortega on 08/24/16 for pancytopenia bone marrow biopsy was done report shows -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 Easley recommendation give 1 unit PRBCs hb improved to 9.1 today with marked improvement of symptom stable to be discharged home today out pt lab work : CBC check in a week , scrip given follow up with Dr Ortega on 09/08/16 as per previous schedule PANCYTOPENIA/THROMBOCYTOPENIA : due to above platelet count 37 no evidence of bleeding pt is counselled to call family physician /heme onc for any evidence of bleeding , including dark stool avoid antiplatelets -no aspirin , no NSAID 's for concern for GI bleed repeat blood work as out pt scheduled to see Heme onc in a week GENERALIZED WEAKNESS due to symptomatic anemia symptom resolved after PRBC transfusion /correction of anemia -CT head negative -PT/OT eval requested -ambulated 200 ft without assistance -stable to be discharged home HLD -continue Statin DEPRESSION -continue Paxil H/O BREAST CA -s/p chemotherapy DVT PROPHYLAXIS: SCDs RE: pancytopenia ambulate CODE STATUS: LEVEL 5 DNR DISPOSITION : lives home with daughter , grandchildren -independent with her activity discharge home with Daughter Medicine follow up with Dr Gabriela Montana onc Follow up with Dr Ortega Total time spent on discharge = 35 MINS This includes examination of the patient, discharge planning, medication reconciliation, and communication with other providers. Discharge Instructions Date of Service Aug 28, 2016. Admission Reason for Admission: Anemia, Pancytopenia Discharge Discharge Diagnosis / Problem: ANEMIA /PANCYTOPENIA /MYELODYSPLASTIC SYNDROME Discharge Goals Goal(s): Improve function, Increase independence, Therapeutic intervention Activity Recommendations Activity Limitations: resume your previous activity Exercise/Sports Limitations: as tolerated Shower/Bathe: no limitations . Instructions / Follow-Up Instructions / Follow-Up HOSPITAL FOLLOW UP WITH DR OCHOA IN A WEEK , OFFICE WILL CALL WITH APPOINTMENT LAB WORK : CBC WITH NEXT PHYSICIAN VISIT PLEASE NOTIFY YOUR FAMILY PHYSICIAN IF YOU START TO EXPERIENCE SIMILAR SYMPTOM OF WEAKNESS, FATIGUE , SHORTNESS OF BREATH -SIGN OF LOW BLOOD COUNT /ANEMIA FOLLOW UP ON 09/08/2016 @ 2:[address] Dominic Ortega MD Hematology/Oncology [facility] DO NOT TAKE ASPIRIN, ALEVE, MOTRIN , NAPROXEN , IBUPROFEN, ADVIL -MAY CAUSE YOU TO HAVE BLEEDING AVOID ALL NSAID - PHARMACY BEFORE BUYING OVER THE COUNTER PAIN MEDICATIONS NOTIFY YOUR FAMILY PHYSICIAN IF YOU NOTICE BLACK /TARRY STOOL -SIGN OF BLEEDING IN STOMACH Current Hospital Diet Patient's current hospital diet: Regular Diet Discharge Diet Recommended Diet: Regular Diet Pending Studies Studies pending at discharge: yes List of pending studies: LAB WORK : COMPLETE BLOOD COUNT TO ASSESS ANEMIA Medical Emergencies . Who to Call and When: Medical Emergencies: If at any time you feel your situation is an emergency, please call 911 immediately. . Non-Emergent Contact Non-Emergency issues call your: Primary Care Provider . . "Provider Documentation" section prepared by Sally Little. VTE Core Measure Inpt VTE Proph given/why not?: Sydney Oconnor, [place]CD's [place] Drug Monitoring Program Search Results: no issues identified Additional Copies To Breanna Ochoa,Dominic Oliveira MD
[2016-08-29 14:34] LABS: COMPLETE YES
== END 2016-08-28 19:25 | disposition home or self-care (01) | DRG 812 ==
LOC: CANRESERV → ENRESERVDT → ENRESERVTM → C.EDB 12:28 → C.4E 15:22 → EDBEDREQSVC 16:00
PROVIDERS: ADMIT Internal Medicine; ATTEND Hospitalist
DX: D64.9 Anemia, unspecified (principal); D46.9 Myelodysplastic syndrome, unspecified; E78.5 Hyperlipidemia, unspecified; F32.9 Major depressive disorder, single episode, unspecified; Z66 Do not resuscitate; Z85.3 Personal history of malignant neoplasm of breast; Z92.21 Personal history of antineoplastic chemotherapy; Z79.899 Other long term (current) drug therapy

== ENCOUNTER 2017-03-14 11:03 | Emergency (ER) | payer OTHER, MEDICARE ==
[~2017-03-14] VITALS: Ht 162.6 cm; Wt 66.0 kg
[~2017-03-14 11:03] MED LIST changes: -MAGN1TAB PO; +MAGNTAB4 PO; -TRIA75TA53 PO
[2017-03-14 11:10] VITALS: TEMP 36.4; Ht 162.6 cm; Wt 66.0 kg
[2017-03-14] MEDS ORDERED: [UNRECOGNIZED DRUG - CODE] INJ (11:51)
[2017-03-14] MEDS ORDERED: SLWMEC PO (11:51)
[2017-03-14] MEDS ORDERED: ERGO500037 PO (11:51)
[2017-03-14] MEDS ORDERED: PARO10TA3 PO (11:51)
[2017-03-14] MEDS ORDERED: IBUPROFEN 200 MG TAB PO STA (12:25)
[2017-03-14] MEDS ORDERED: ACETAMINOPHEN 325 MG TAB PO STA (12:25)
[2017-03-14] MEDS ORDERED: DIAZEPAM 5MG TAB PO ONE (12:30)
[2017-03-14 13:25] LABS: BUN/CREATININE RATIO 20.8 (10-20); CALCIUM 9.1 mg/dl (8.5-10.1); CREATININE 0.93 mg/dl (0.60-1.20)
[2017-03-14 13:26] LABS: C-REACTIVE PROTEIN 0.53 mg/dl (0-0.29)
[2017-03-14 13:30] LABS: PROTHROMBIN TIME (PATIENT) 10.5 SECONDS (9.0-12.0)
[2017-03-14 13:45] LABS: HEMATOCRIT 25.5 % (37-47); MEAN CELL VOLUME 91.4 fL (80-100); MEAN CORPUSCULAR HEMOGLOBIN 30.8 pg (25-34); MEAN CORPUSCULAR HGB CONC 33.7 g/dl (32-36); PLATELET COUNT 29 K/uL (130-400); RED BLOOD COUNT 2.79 M/uL (4.2-5.4); WHITE BLOOD COUNT 1.71 K/uL (4.8-10.8)
[2017-03-14 14:01] LABS: ANISOCYTOSIS PRESENT; BASO % 1.2 %; BASO ABS # 0.02 K/uL (0-0.2); COMPLETE YES; DOHLE BODIES 1+; EOS % 3.5 %; GIANT PLATELETS 2+; IG% 0.6 %; LYMPH % 33.3 %; LYMPH ABS # 0.57 K/uL (1.2-3.4); MONO % 10.5 %; NEUT % 50.9 %; PLT ESTIMATE DECREASED; SPHEROCYTE 1+; TEAR DROP CELLS 1+
[2017-03-14] MEDS ORDERED: CYCL10TA6 PO (14:37)
--- NOTE | 2017-03-14 14:37 | EMERGENCY ROOM VISIT NOTE ---
History Report prepared by Samanta: Lisandra Thornton Under the Supervision of: Dr. Angel Mijares M.D. First contact with patient: 11:47 Chief Complaint: ALLERGIC REACTION Stated Complaint: STIFF JAW AND HIPS-FLU SHOT ON MONDAY Nursing Triage Summary: pt had flu shot on monday and now has jaw and joint pain pt called PMD and they told her to come here bc they are concerned for GB History of Present Illness The patient is an 87 year old white female with a past medical history of myelodysplastic syndrome who presents to the ED with a cc of right jaw pain beginning 2 days ago. The patient had a flu shot in her right arm 4 days ago. Her arm was stiff after the shot. Two days later she developed some swelling on the right side of her face and below her right ear. She has had right sided jaw pain. This pain is worsened with chewing and opening her mouth. Daughter states that she has not been eating much due to pain. She has also been complaining of worsening joint pain over the past couple of days. Daughter states that this is unusual for her and the patient is typically very active. Negative vision loss, temporal pain. The patient has not taken anything for her pain. She called her PCP's office and they advised her to come to the ED for further evaluation. She has had the shingles vaccine previously. Source of History: patient Onset: 2 days ago Position: jaw Symptom Intensity: moderate Timing: worsening Modifying Factors (Worsening): eating, other (chewing) Note: Pt notes right sided facial swelling and worsening joint pain. Negative vision loss and temporal pain. Review of Systems See HPI for pertinent positives and negatives. A total of ten systems were reviewed and were otherwise negative. Past Medical & Surgical Medical Problems: (1) Breast cancer (2) Breast cancer (3) HLD (hyperlipidemia) (4) Meniere disease (5) Urinary problem Surgical Problems: (1) H/O dilation and curettage (2) History of cataract surgery Family History Cancer Social History Smoking Status: Never Smoker Alcohol Use: none Occupation Status: retired Current/Historical Medications Scheduled Atorvastatin (Lipitor), 10 MG PO DAILY Epoetin Michael (Procrit), 20,000 UNITS INJ WK Ergocalciferol (Vitamin D 59030 Unit), 50,000 UNIT PO WK Magnesium Chloride (Slow-Mag Tab), 64 MG PO DAILY Paroxetine HCl (Paroxetine), 10 MG PO DAILY Scheduled PRN Cyclobenzaprine Hcl (Flexeril), 5 MG PO BID PRN for Muscle Spasms Allergies Coded Allergies: Alcohol (Unverified Allergy, Unknown, UNKNOWN, 03/14/17) Paclitaxel (Unverified Allergy, Unknown, UNKNOWN, 03/14/17) Pneumococcal Vaccine (Unverified Allergy, Unknown, ., 03/14/17) Polyoxyethylated [place] Oil (Unverified Allergy, Unknown, UNKNOWN, ) Sulfamethoxazole w/Trimethoprim (Unverified Allergy, Unknown, ., 03/14/17) Ezetimibe (Unverified Adverse Reaction, Unknown, "WEAK MUSCLES", 03/14/17) Physical Exam Vital Signs Date Time Temp Pulse Resp B/P (MAP) Pulse Ox O2 Delivery O2 Flow Rate FiO2 03/14/17 15:08 82 20 134/75 96 03/14/17 14:00 87 18 127/72 95 Room Air 03/14/17 11:50 92 18 143/72 96 Room Air 03/14/17 11:10 36.4 92 18 143/64 97 Room Air Physical Exam GENERAL: Awake, alert, well-appearing, NAD HENT: Normocephalic, atraumatic. Right TM scarring noted, no effusion or erythema. Pt has pain to right TMJ with jaw opening, no clicking noted. No pain over temporal area. EYES: Normal conjunctiva. Sclera non-icteric. PERRL, EOMI, gross vision intact. NECK: Supple. No nuchal rigidity. FROM. RESPIRATORY: CTAB, no rhonchi, wheezing, crackles CARDIAC: RRR, no MRG ABDOMEN: Soft, NTND, BS+ MSK: No chest wall TTP, no LE edema NEURO: GCS 15, CN 2-12 intact, moves all 4s on command SKIN: No rash or jaundice noted. Medical Decision & Procedures Laboratory Results 03/14/17 12:50 Red Blood Count 2.79, Mean Corpuscular Volume 91.4, Mean Corpuscular Hemoglobin 30.8, Mean Corpuscular Hemoglobin Concent 33.7, Neutrophils (%) (Auto) 50.9, Lymphocytes (%) (Auto) 33.3, Monocytes (%) (Auto) 10.5, Eosinophils (%) (Auto) 3.5, Basophils (%) (Auto) 1.2, Neutrophils # (Auto) 0.87, Lymphocytes # (Auto) 0.57, Monocytes # (Auto) 0.18, Eosinophils # (Auto) 0.06, Basophils # (Auto) 0.02 03/14/17 12:50 Test 03/14/17 12:50 White Blood Count 1.71 K/uL (4.8-10.8) Red Blood Count 2.79 M/uL (4.2-5.4) Hemoglobin 8.6 g/dL (12.0-16.0) Hematocrit 25.5 % (37-47) Mean Corpuscular Volume 91.4 fL (80-100) Mean Corpuscular Hemoglobin 30.8 pg (25-34) Mean Corpuscular Hemoglobin Concent 33.7 g/dl (32-36) Platelet Count 29 K/uL (130-400) Neutrophils (%) (Auto) 50.9 % Lymphocytes (%) (Auto) 33.3 % Monocytes (%) (Auto) 10.5 % Eosinophils (%) (Auto) 3.5 % Basophils (%) (Auto) 1.2 % Neutrophils # (Auto) 0.87 K/uL (1.4-6.5) Lymphocytes # (Auto) 0.57 K/uL (1.2-3.4) Monocytes # (Auto) 0.18 K/uL (0.11-0.59) Eosinophils # (Auto) 0.06 K/uL (0-0.5) Basophils # (Auto) 0.02 K/uL (0-0.2) RDW Standard Deviation 62.7 fL (36.4-46.3) RDW Coefficient of Variation 18.9 % (11.5-14.5) Immature Granulocyte % (Auto) 0.6 % Immature Granulocyte # (Auto) 0.01 K/uL (0.00-0.02) Hypogranular Neutrophils 1+ Dohle Bodies 1+ Platelet Estimate DECREASED Giant Platelets 2+ Anisocytosis PRESENT Spherocytes 1+ Tear Drop Cells 1+ Erythrocyte Sedimentation Rate 19 mm/hr (0-21) Prothrombin Time 10.5 SECONDS (9.0-12.0) Prothromb Time International Ratio 1.0 (0.9-1.1) Activated Partial Thromboplast Time 25.0 SECONDS (21.0-31.0) Partial Thromboplastin Ratio 1.0 Anion Gap 6.0 mmol/L (3-11) Est Creatinine Clear Calc Drug Dose 41.4 ml/min Estimated GFR () 65.0 Estimated GFR (Non- 56.0 BUN/Creatinine Ratio 20.8 (10-20) Calcium Level 9.1 mg/dl (8.5-10.1) C-Reactive Protein 0.53 mg/dl (0-0.29) Laboratory results reviewed by me Medications Administered Medications (Trade) Dose Ordered Sig/Alonso Route Start Time Stop Time Status Last Admin Dose Admin Ibuprofen (Advil Tab) 400 mg NOW STAT PO 03/14/17 12:25 03/14/17 12:26 DC 03/14/17 13:03 400 MG Acetaminophen (Tylenol Tab) 650 mg NOW STAT PO 03/14/17 12:25 03/14/17 12:26 DC 03/14/17 12:25 650 MG Diazepam (Valium Tab) 5 mg NOW ONCE PO 03/14/17 12:30 03/14/17 12:31 DC 03/14/17 12:30 5 MG ED Course 1147: The patient was evaluated in room B10. A complete history and physical exam was performed. 1225: Tylenol tab 650 mg PO, Advil 400 mg PO 1230: Valium tab 5 mg PO 1431: I reassessed the patient. She is feeling better and resting comfortably. I discussed the results and treatment plan with the patient and her daughter. I answered all pertaining questions that they had. They expressed understanding and verbalized agreement. The patient will be discharged home. Medical Decision The patient is an 87 year old white female with a past medical history of myelodysplastic syndrome who presents to the ED with a cc of right jaw pain beginning 2 days ago. Differential diagnoses includes TMJ pain, allergic reaction, temporal arteritis , tetanus. Patient was seen and evaluated at the bedside. Patient was complaining of some right sided ear and jaw pain. Patient denied any pain over the temporal area and denied any monocular vision loss. Patient had some scarring of the TM but no other issues. Patient did have blood work that was completed. Patient platelet count 29,000, hemoglobin 8.6, white blood cell count 1700, ANC 870. Patient does not meet any acute requirements for transfusion of other platelets or blood. Patient does not have true neutropenia and is not febrile thus does not need to be treated. Patient was informed of all findings. Patient also presented as they were concerned about a possible GBS infection. Patient has great strength no issues with breathing. Less likely to be GBS. Patient was likely would have temporal arteritis given the lack of pain vision loss and other symptoms. Patient is up-to-date on tetanus. Patient does not have any known vesicles that are noticed right now no concern for Zhen Siaac or zoster at this time. Patient was given strict follow-up, discharge, and return precautions and was discharged home. Medication Reconcilliation Current Medication List: was personally reviewed by me Blood Pressure Screening Patient's blood pressure: Normal blood pressure Impression Primary Impression: TMJ disease Additional Impression: Thrombocythemia Scribe Attestation The scribe's documentation has been prepared under my direction and personally reviewed by me in its entirety. I confirm that the note above accurately reflects all work, treatment, procedures, and medical decision making performed by me. Departure Information Dispostion Home / Self-Care Prescriptions Cyclobenzaprine Hcl (FLEXERIL) 10 Mg Tab 5 MG PO BID Y for Muscle Spasms, #14 TAB Prov: Angel Mijares M.D. 03/14/17 Referrals Breanna Ochoa DO (PCP) Patient Instructions [facility] Additional Instructions Please return to the emergency department if you have worsening or recurrent symptoms not amenable to at-home treatment. Please call for a follow-up appointment with her primary care physician. Please take your medications as prescribed. If you have other concerns and/or complaints please feel free to also call your primary care physician's office or return the ED for further evaluation, management, and treatment. You received narcotic or benzodiazepene medication while in the emergency room today. This is an addictive medication that may cause drowziness as well as constipation. Do not drive, operate heavy machinery, or drink alcohol under the influence of this medication. You may take tylenol 650 mg every 8 hours as needed for pain. You may try flexeril to help w/ some muscular pain/tension. You have been examined and treated today on an emergency basis only. This is not a substitute for, or an effort to provide, complete comprehensive medical care. It is impossible to recognize and treat all injuries or illnesses in a single emergency department visit. It is therefore important that you follow up closely with [facility]. Call as soon as possible for an appointment. Thank you for your time and consideration. I look forward to speaking with you again soon. Please don't hesitate to call us if you have any questions. Problem Qualifiers
[2017-03-14 15:08] VITALS: BP 134/75; PULSE 82; O2SAT 96
== END 2017-03-14 15:10 | disposition home or self-care (01) ==
LOC: C.EDB 11:05
DX: M26.69 Other specified disorders of temporomandibular joint (principal); D47.3 Essential (hemorrhagic) thrombocythemia; D46.9 Myelodysplastic syndrome, unspecified; Z85.3 Personal history of malignant neoplasm of breast; E78.5 Hyperlipidemia, unspecified; H81.09 Meniere's disease, unspecified ear; Z80.9 Family history of malignant neoplasm, unspecified; Z79.899 Other long term (current) drug therapy

== ENCOUNTER → 2017-07-20 | Outpatient (CLI) | payer OTHER, MEDICARE ==
[~2017-07-20] MED LIST changes: +ATOR10TA82 PO; -ATOR10TA88 PO; +ERGO500037 PO; -MAGNTAB4 PO; +PARO10TA3 PO; -PARO1TAB27 PO; +SLWMEC PO; -VTMD PO; +[UNRECOGNIZED DRUG - CODE] INJ
== END | disposition home or self-care (01) ==
LOC: C.PATH 08:02
DX: R59.0 Localized enlarged lymph nodes (principal); R89.6 Abnormal cytological findings in specimens from other organs, systems and tissues

== ENCOUNTER → 2017-07-26 | Outpatient (CLI) | payer OTHER, MEDICARE ==
--- NOTE | 2017-07-26 12:09 | DIAGNOSTIC IMAGING REPORT ---
PET/CT CLINICAL HISTORY: B cell lymphoma. TECHNIQUE: A PET/CT was performed from the skull base through the upper thighs following intravenous injection of 14.03 mCi of F 18 FDG IV. The injection was performed at 7:26 AM on July 26, 2017 and imaging began at 8:27 AM on July 26, 2017. Unenhanced CT was performed for attenuation correction purposes and anatomic localization. COMPARISON STUDY: PET/CT March 24, 2014 and ultrasound of the neck June 16, 2017. FINDINGS: Head and neck: Note is made of several mildly enlarged cervical lymph nodes which demonstrate FDG uptake. There is an index left parotid/periparotid lymph node that measures 1.1 x 1 cm shown on image 15. The SUV max for this lymph node is 7.8. A few adjacent smaller FDG avid left-sided cervical lymph nodes are noted. An FDG avid right level 2 node is shown on image 24. This is obscured on the CT portion of this exam. This has an SUV max of 7.8. Chest: There are multiple mildly enlarged mediastinal lymph nodes which demonstrate mild FDG uptake. An index right paratracheal lymph node shown on image 66 measures 1.6 x 1.3 cm and has an SUV max of 3.6. An index AP window lymph node measures 1.8 x 0.9 cm and has an SUV max of 3.2. A mildly enlarged subcarinal lymph node measuring 1.4 cm has an SUV max of 4. Mild FDG uptake within bilateral subpleural lower lobe opacities within SUV max of 3. Abdomen and Pelvis: There are numerous mildly enlarged retroperitoneal and mesenteric lymph nodes. Index precaval lymph node shown on image 160 measures 2.3 x 1 cm and has an SUV max of 3. Index mesenteric lymph node shown on image 176 measures 2.1 x 1.3 cm and has an SUV max of 7.8. There is no inguinal lymphadenopathy. There is colonic diverticulosis without evidence for acute diverticulitis. There is minimal perirectal infiltration and fluid. There is a small focus of mild FDG uptake projecting over the mid rectum shown on image 210 with an SUV max of 4.9. There is no corresponding abnormality by CT. Musculoskeletal: Mild diffuse skeletal uptake is noted within SUV max of 4. No focal uptake is noted. Similar findings were shown on study of March 24, 2014. IMPRESSION: 1. Marked FDG uptake within mildly enlarged bilateral cervical lymph nodes consistent with the history of lymphoma. Marked FDG uptake within a mildly enlarged mesenteric lymph node is also consistent with lymphoma. Mild FDG uptake within numerous additional lymph nodes within the chest and abdomen is indeterminate although likely reflects lymphomatous involvement. 2. Mild diffuse skeletal uptake without focal radiotracer uptake. This is similar to prior PET/CT of March 24, 2014 and is likely within normal limits. Lymphomatous involvement is considered less likely although could appear similar. 3. Focal mild FDG uptake projecting over the mid rectum without CT correlate. This is nonspecific. 4. Mild FDG uptake within bilateral lower lobe subpleural groundglass opacities. This may reflect atelectasis or interstitial lung disease. An infectious process could appear similar. A neoplastic etiology is considered very unlikely. Electronically signed by: Akira Gill M.D. 07/26/2017 12:07 PM Dictated Date/Time: 07/26/2017 9:40 AM
== END | disposition home or self-care (01) ==
LOC: C.PET 06:53
PROVIDERS: ATTEND Internal Medicine Hematology & Oncology
DX: C85.11 Unspecified B-cell lymphoma, lymph nodes of head, face, and neck (principal); D46.9 Myelodysplastic syndrome, unspecified

== ENCOUNTER 2017-10-08 10:22 | Inpatient (IN) | payer OTHER, MEDICARE ==
[~2017-10-08] VITALS: Ht 162.6 cm; Wt 67.3 kg
[~2017-10-08 10:22] MED LIST changes: -PARO10TA3 PO; -[UNRECOGNIZED DRUG - CODE] INJ; +paxil PO
--- NOTE | 2017-10-08 12:15 | DIAGNOSTIC IMAGING REPORT ---
CHEST 2 VIEWS ROUTINE HISTORY: 87 years-old Female crackles at base r>l eval for pna acute crackles of the bilateral lung bases with shortness of breath COMPARISON: Chest radiograph 08/27/2016, PET CT 07/26/2017 TECHNIQUE: PA and lateral views of the chest FINDINGS: Cardiomediastinal and hilar silhouettes are within normal limits. Biapical pleural-parenchymal scarring without pneumothorax or large pleural effusion. Mixed interstitial and alveolar opacities of the bilateral lung bases, right greater than left have progressed from prior study 08/27/2016. Mild hyperinflation with diaphragmatic flattening. Bones appear grossly intact. Surgical clips project over the left axilla. IMPRESSION: 1. Interval development of right greater than left bibasilar opacities on a background of chronic bibasilar reticular suggests pneumonia or atelectasis. 2. Hyperinflation with diaphragmatic flattening. The above report was generated using voice recognition software. It may contain grammatical, syntax or spelling errors. Electronically signed by: Ilan Martinez M.D. 10/08/2017 12:14 PM Dictated Date/Time: 10/08/2017 12:11 PM
[2017-10-08 12:29] LABS: PTT PATIENT 25.3 SECONDS (21.0-31.0)
[2017-10-08 12:37] LABS: ALBUMIN 3.1 gm/dl (3.4-5.0); CALCIUM 8.6 mg/dl (8.5-10.1); CREATININE 0.95 mg/dl (0.60-1.20); POTASSIUM 4.3 mmol/L (3.5-5.1)
[2017-10-08 12:40] LABS: TOTAL PROTEIN 6.8 gm/dl (6.4-8.2)
[2017-10-08 12:53] LABS: HEMOGLOBIN 8.5 g/dL (12.0-16.0); MEAN CELL VOLUME 92.3 fL (80-100); MEAN CORPUSCULAR HEMOGLOBIN 31.4 pg (25-34); RED CELL DISTRIBUTION WIDTH CV 17.2 % (11.5-14.5); RED CELL DISTRIBUTION WIDTH SD 54.7 fL (36.4-46.3); WHITE BLOOD COUNT 1.67 K/uL (4.8-10.8)
[2017-10-08 12:55] LABS: PLATELET COUNT 12 K/uL (130-400)
[2017-10-08] MEDS ORDERED: CEFEPIME IV 2,000 MG in DEXTROSE 5% 100ML 100 ML IV SCH (13:15)
[2017-10-08 13:21] LABS: NUCLEATED RED BLOOD CELL ABS 0.13 K/uL (0-0)
[2017-10-08] MEDS ORDERED: ALUMINUM/MAGNESIUM/SIMETH (MAALOX MAX) 30 ML UDC PO PRN (14:00)
[2017-10-08] MEDS ORDERED: ACETAMINOPHEN 325 MG TAB PO PRN (14:00)
[2017-10-08] MEDS ORDERED: POLYETHYLENE (MIRALAX) 17 GM PACK PO PRN (14:00)
[2017-10-08] MEDS ORDERED: ONDANSETRON INJ 2 MG/ML 2 ML VIAL IV PRN (14:00)
[2017-10-08] MEDS ORDERED: VANCOMYCIN CONSULT ACTIVE PRN ×2 (14:00)
[2017-10-08] MEDS ORDERED: MAGNESIUM HYDROXIDE SUSP 30 ML UDC PO PRN (14:00)
--- NOTE | 2017-10-08 14:01 | History and Physical ---
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 Ortega Patient developed gum bleeding/with platelet count 12 Had 1 unit of PRBC/1 unit of platelet transfusion on 10/06/2017 This morning she woke up with bleeding along the gumline again called Dr. Ortega' s office Was asked to come to ER for blood work check and possible platelet transfusion Lab work in ER showed pancytopenia with hemoglobin of 8.2/ platelet 12 Neutropenia total neutrophil count 1.6K absolute ANC 100 Chest x-ray: 1. 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 (12) Urinary problem (13) Weakness Surgical Problems: (1) H/O dilation and curettage (2) History of cataract surgery Family History Cancer Social History Smoking Status: Never Smoker Housing status: lives with family Occupational Status: retired Immunizations History of Influenza Vaccine: Yes Influenza Vaccine Date: Mar 29, 2016 History of Tetanus Vaccine?: Yes Tetanus Immunization Date: Aug 30, 2011 History of Pneumococcal: Yes Pneumococcal Date: Sep 29, 2014 Allergies Coded Allergies: Alcohol (Verified Allergy, Severe, diarrhea, bloating, bowel irritation, swelling, 10/08/17) Paclitaxel (Verified Allergy, Severe, diarrhea, bowel irritation, swelling , 10/08/17) Pneumococcal Vaccine (Verified Allergy, Severe, swelling, pain, 10/08/17) Polyoxyethylated [place] Oil (Verified Allergy, Severe, bowel irritation, swelling, diarrhea, 10/08/17) Sulfamethoxazole w/Trimethoprim (Verified Adverse Reaction, Severe, unable to recall per patient, 10/08/17) Ezetimibe (Unverified Adverse Reaction, Unknown, "WEAK MUSCLES", 10/08/17) Home Medications Scheduled Atorvastatin (Lipitor), 10 MG PO DAILY Ergocalciferol (Vitamin D 73466 Unit), 50,000 UNIT PO WK Magnesium Chloride (Slow-Mag Tab), 64 MG PO DAILY [paxil], 10 MG PO HS Review of Systems Constitutional: + weakness, + fatigue, No fever, No chills, No sweats, No weight loss, No problem reported Respiratory: + cough (Dry cough), No sputum, No wheezing, No shortness of breath, No dyspnea on exertion, No dyspnea at rest, No hemoptysis, No problem reported Cardiovascular: No chest pain, No orthopnea, No PND, No edema, No claudication , No palpitations, No problem reported Abdomen: No pain, No nausea, No vomiting, No diarrhea, No constipation, No GI bleeding, No problem reported Musculoskeletal: No joint pain, No muscle pain, No swelling, No calf pain, No problem reported Neurologic: + weakness Physical Exam Vital Signs Date Time Temp Pulse Resp B/P (MAP) Pulse Ox O2 Delivery O2 Flow Rate FiO2 10/08/17 12:44 88 14 118/65 94 10/08/17 11:15 36.6 94 16 131/70 96 Room Air 10/08/17 10:32 36.6 95 18 128/63 95 Room Air General Appearance: no apparent distress (No apparent distress) Head: normocephalic, atraumatic Eyes: normal inspection, PERRL, EOMI, sclerae normal Neck: no carotid bruits, trachea midline Respiratory/Chest: lungs clear, normal breath sounds, no respiratory distress Cardiovascular: regular rate, rhythm, no edema, no JVD Abdomen/GI: normal bowel sounds, non tender, soft Extremities/Musculoskelatal: normal inspection, no calf tenderness, normal capillary refill Neurologic/Psych: no motor/sensory deficits, alert, normal mood/affect, oriented x 3 Diagnostics Laboratory Results Results Past 24 Hours Test 10/08/17 11:40 Range/Units White Blood Count 1.67 4.8-10.8 K/uL Red Blood Count 2.71 4.2-5.4 M/uL Hemoglobin 8.5 12.0-16.0 g/dL Hematocrit 25.0 37-47 % Mean Corpuscular Volume 92.3 80-100 fL Mean Corpuscular Hemoglobin 31.4 25-34 pg Mean Corpuscular Hemoglobin Concent 34.0 32-36 g/dl Platelet Count 12 130-400 K/uL RDW Standard Deviation 54.7 36.4-46.3 fL RDW Coefficient of Variation 17.2 11.5-14.5 % Nucleated RBC Absolute Count (auto) 0.13 0-0 K/uL Neutrophils % (Manual) 6.1 % Lymphocytes % (Manual) 61.4 % Basophils % (Manual) 1.8 % Blast Cells % 30.7 % Nucleated Red Blood Cells % 7.5 % Neutrophils # (Manual) 0.10 1.4-6.5 K/uL Total Absolute Neutrophils 0.10 1.4-6.5 K/uL Lymphocytes # (Manual) 1.03 1.2-3.4 K/uL Total Absolute Lymphocytes 1.03 1.2-3.4 K/uL Basophils # (Manual) 0.03 0-0.2 K/uL Blast Cells # 0.51 0-0 K/uL Platelet Estimate SIGNIFIC DECREASED Giant Platelets 1+ Tear Drop Cells 1+ Prothrombin Time 10.7 9.0-12.0 SECONDS Prothromb Time International Ratio 1.0 0.9-1.1 Activated Partial Thromboplast Time 25.3 21.0-31.0 SECONDS Partial Thromboplastin Ratio 1.0 Sodium Level 130 136-145 mmol/L Potassium Level 4.3 3.5-5.1 mmol/L Chloride Level 98 98-107 mmol/L Carbon Dioxide Level 26 21-32 mmol/L Anion Gap 6.0 3-11 mmol/L Blood Urea Nitrogen 19 7-18 mg/dl Creatinine 0.95 0.60-1.20 mg/dl Est Creatinine Clear Calc Drug Dose 41.2 ml/min Estimated GFR () 63.3 Estimated GFR (Non- 54.6 BUN/Creatinine Ratio 19.7 10-20 Random Glucose 115 70-99 mg/dl Calcium Level 8.6 8.5-10.1 mg/dl Total Bilirubin 0.7 0.2-1 mg/dl Direct Bilirubin 0.2 0-0.2 mg/dl Aspartate Amino Transf (AST/SGOT) 22 15-37 U/L Alanine Aminotransferase (ALT/SGPT) 14 12-78 U/L Alkaline Phosphatase 57 45-117 U/L Total Protein 6.8 6.4-8.2 gm/dl Albumin 3.1 3.4-5.0 gm/dl Microbiology Results 10/08/17 Blood Culture, Ordered Pending 10/08/17 Blood Culture, Ordered Pending 10/08/17 Blood Culture, Received Pending Diagnostic Radiology CHEST XRAY : IMPRESSION: 1. Interval development of right greater than left bibasilar opacities on a background of chronic bibasilar reticular suggests pneumonia or atelectasis. 2. Hyperinflation with diaphragmatic flattening. Impression Assessment and Plan PANCYTOPENIA: Due to myelodysplastic syndrome/AML Severe neutropenia with ANC 100 Continue neutropenic precaution Repeat CBC in a.m. SEVERE THROMBOCYTOPENIA WITH ACTIVE BLEEDING Platelet count 12 with active gum bleeding No report of epistaxis/blood in stool or melena/or hematuria Ordered for 1 unit of platelet to be transfused Repeat platelet count in the evening Discussed with hematology oncology Dr. 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 Jordan Horne for prophylaxis Patient was reluctant to take extra antibiotic Counseling provided-clinically no evidence of infection noted If patient remains afebrile/cultures are negative Can be transitioned to oral antibiotic as per ID recommendation HISTORY OF MDS/NOW PROGRESSION TO AML Follows with hematology oncology Dr. Ortega Poor prognosis She refused palliative chemo treatment with decitabine She is DNR/DNI-okay with blood transfusion/IV antibiotics Wants to continue supportive care with as needed blood product transfusion Daughter as at baseline patient is still active/driving car/independent in her ADLs Not interested for transition to hospice care yet CODE STATUS: DNR/DNI DVT prophylaxis: SCD and teds DISPOSITION: wants to return home as soon as possible Have good family support PT OT evaluation requested Patient interested in home health visiting nurse/will benefit as requiring frequent lab draws to monitor anemia and thrombocytopenia Medicine follow-up with Dr. Ochoa Hematology oncology follow up with Dr. Ortega Level of Care Med/Surg Resuscitation Status DO NOT RESUSCITATE VTE Prophylaxis Risk Level: Moderate Given or contraindicated: Sydney Stockings, SCD's Additional Copies To Dominic Ortega MD
[2017-10-08 14:07] VITALS: Ht 162.6 cm; Wt 67.3 kg
--- NOTE | 2017-10-08 15:29 | Pharmacy Progress Note ---
Pharmacy Abx Initial Consult Date of Service October 08, 2017. Pharmacy Dosing Scope Date of Consult: 10/08/17 Consultation requested by: Dr. Little Pharmacy is consulted to initiate Vancomycin IV dosing therapy, order appropriate labs and adjust drug dose/frequency. Subjective The patient is a 87 year old female admitted on . Objective Height (Feet): 5 Height (Inches): 4.00 Weight (Kilograms): 68.700 Vital Signs (Past 12Hrs) Vital Signs Past 12 Hours Date Time Temp Pulse Resp B/P (MAP) Pulse Ox O2 Delivery O2 Flow Rate FiO2 10/08/17 14:48 91 16 140/77 95 Room Air 10/08/17 14:07 Room Air 10/08/17 12:44 88 14 118/65 94 10/08/17 11:15 36.6 94 16 131/70 96 Room Air 10/08/17 10:32 36.6 95 18 128/63 95 Room Air Lab Results (24Hrs) Laboratory Tests (24 Hours) Test 10/08/17 11:40 White Blood Count 1.67 K/uL (4.8-10.8) L Red Blood Count 2.71 M/uL (4.2-5.4) L Hemoglobin 8.5 g/dL (12.0-16.0) L Hematocrit 25.0 % (37-47) L Mean Corpuscular Volume 92.3 fL (80-100) Mean Corpuscular Hemoglobin 31.4 pg (25-34) Mean Corpuscular Hemoglobin Concent 34.0 g/dl (32-36) Platelet Count 12 K/uL (130-400) *L Micro Results Date/Time Source Procedure Growth Status 10/08/17 11:50 Blood Blood Culture Pending Received 10/08/17 11:40 Blood Blood Culture Pending Received Risk Factors for Resistance * Immunocompromised (chronic steroid therapy, chemotherapy, immunomodulators) Assessment & Plan Assessment 87 year old female initiated on IV Vancomycin + Cefepime for pneumonia with neutropenia. Plan Vancomycin IV * Loading dose: 1,500 mg (22 mg/kg) * Maintenance dose: 1,000 mg IV (15 mg/kg) every 18 hours * Likely Q18hrs dosing interval will be too aggressive for patient. But, wanted to start aggressive dosing secondary to neutropenia and can back off on dosing once steady state is reached. * Goal trough level for Pulm : 15 to 20 mcg/mL * Trough level ordered for 10/10/17 Cefepime not per pharmacy consult but dosing is adequate. Pharmacy will continue to follow and will adjust dose/frequency as necessary. Thank you.
[2017-10-08 16:18] VITALS: BP 143/80; PULSE 93; TEMP 36.4; O2SAT 95
[2017-10-08] MEDS ORDERED: VANCOMYCIN IV 1,500 MG in SODIUM CHLORIDE 0.9% 500ML 500 ML IV STA (16:24)
--- NOTE | 2017-10-08 16:44 | EMERGENCY ROOM VISIT NOTE ---
History Report prepared by Samanta: Anais Jauregui Under the Supervision of: Dr. Deshawn Reyes M.D. First contact with patient: 10:53 Chief Complaint: ILLNESS Stated Complaint: BLEEDING/LEUKEMIA, REFERRED BY History of Present Illness The patient is an 87 year old female who presents to the Emergency Room with complaints of an episode of bleeding from her gums at 0700 this morning. The patient was referred to the ED by her oncologist. She had just woken up when she noticed that her gums were bleeding. She was not yet brushing her teeth. She had what she describes as a wet scab and was not bleeding profusely. She has been drinking ice water which seemed to help the bleed stop. The patient currently has acute leukemia and B cell lymphoma. She had blood work 2 days ago which showed that her counts are low. She was given a transfusion of red blood cells and platelets that day. Her daughter notes that she had some bleeding from the IV after the transfusion. She has been feeling tired. She has had some cough. She has been SOB with walking. She denies any chest pain, abdominal pain , headache, fever, or black or bloody stools. She has not had any chemotherapy recently. Source of History: patient, family Onset: 0700 this morning Position: other (gums) Quality: other (bleeding) Timing: other (episodic) Modifying Factors (Relieving): ice (water) Associated Symptoms: + cough, + SOB, + fatigue, No fevers, No headache, No chest pain, No abdominal pain, No melena, No hematochezia Review of Systems See HPI for pertinent positives & negatives. A total of 10 systems reviewed and were otherwise negative. Past Medical & Surgical Medical Problems: (1) Bilateral pneumonia (2) Breast cancer (3) Breast cancer (4) HLD (hyperlipidemia) (5) Meniere disease (6) Neutropenia (7) Urinary problem Surgical Problems: (1) H/O dilation and curettage (2) History of cataract surgery Family History Cancer Social History Smoking Status: Never Smoker Alcohol Use: none Occupation Status: retired Current/Historical Medications Scheduled Atorvastatin (Lipitor), 10 MG PO DAILY Ergocalciferol (Vitamin D 47787 Unit), 50,000 UNIT PO WK Magnesium Chloride (Slow-Mag Tab), 64 MG PO DAILY [paxil], 10 MG PO HS Allergies Coded Allergies: Alcohol (Verified Allergy, Severe, diarrhea, bloating, bowel irritation, swelling, 10/08/17) Paclitaxel (Verified Allergy, Severe, diarrhea, bowel irritation, swelling , 10/08/17) Pneumococcal Vaccine (Verified Allergy, Severe, swelling, pain, 10/08/17) Polyoxyethylated [place] Oil (Verified Allergy, Severe, bowel irritation, swelling, diarrhea, 10/08/17) Sulfamethoxazole w/Trimethoprim (Verified Adverse Reaction, Severe, unable to recall per patient, 10/08/17) Ezetimibe (Unverified Adverse Reaction, Unknown, "WEAK MUSCLES", 10/08/17) Physical Exam Vital Signs Date Time Temp Pulse Resp B/P (MAP) Pulse Ox O2 Delivery O2 Flow Rate FiO2 10/08/17 12:44 88 14 118/65 94 10/08/17 11:15 36.6 94 16 131/70 96 Room Air 10/08/17 10:32 36.6 95 18 128/63 95 Room Air Physical Exam Constitutional: Vital signs reviewed. Eyes: Pupils are equal round reactive to light. Conjunctiva are noninjected. ENT: Pharynx is clear without erythema or exudate. Mucous membranes are moist. No active bleeding from the gums. Neck supple without meningeal signs. Respiratory: Bibasilar rales greater on the right side. Breath sounds are equal bilaterally. Cardiovascular: Regular rate and rhythm. No rubs or gallops. GI: Soft, nondistended and nontender. Bowel sounds are present. Musculoskeletal: Ecchymosis to the right forearm and antecubital fossa consistent with IV placements. No peripheral edema. Integumentary: No cyanosis. Neurological: The patient is awake and alert. No focal deficits. Psychiatric: Normal affect. Medical Decision & Procedures ER Provider Diagnostic Interpretation: X-ray results as stated below per interpretation by me and the radiologist: CHEST 2 VIEWS ROUTINE HISTORY: 87 years-old Female crackles at base r>l eval for pna acute crackles of the bilateral lung bases with shortness of breath COMPARISON: Chest radiograph 08/27/2016, PET CT 07/26/2017 TECHNIQUE: PA and lateral views of the chest FINDINGS: Cardiomediastinal and hilar silhouettes are within normal limits. Biapical pleural-parenchymal scarring without pneumothorax or large pleural effusion. Mixed interstitial and alveolar opacities of the bilateral lung bases, right greater than left have progressed from prior study 08/27/2016. Mild hyperinflation with diaphragmatic flattening. Bones appear grossly intact. Surgical clips project over the left axilla. IMPRESSION: 1. Interval development of right greater than left bibasilar opacities on a background of chronic bibasilar reticular suggests pneumonia or atelectasis. 2. Hyperinflation with diaphragmatic flattening. The above report was generated using voice recognition software. It may contain grammatical, syntax or spelling errors. Electronically signed by: Ilan Martinez M.D. 10/08/2017 12:14 PM Dictated Date/Time: 10/08/2017 12:11 PM Laboratory Results 10/08/17 11:40 Red Blood Count 2.71, Mean Corpuscular Volume 92.3, Mean Corpuscular Hemoglobin 31.4, Mean Corpuscular Hemoglobin Concent 34.0 10/08/17 11:40 Test 10/08/17 11:40 White Blood Count 1.67 K/uL (4.8-10.8) Red Blood Count 2.71 M/uL (4.2-5.4) Hemoglobin 8.5 g/dL (12.0-16.0) Hematocrit 25.0 % (37-47) Mean Corpuscular Volume 92.3 fL (80-100) Mean Corpuscular Hemoglobin 31.4 pg (25-34) Mean Corpuscular Hemoglobin Concent 34.0 g/dl (32-36) Platelet Count 12 K/uL (130-400) RDW Standard Deviation 54.7 fL (36.4-46.3) RDW Coefficient of Variation 17.2 % (11.5-14.5) Nucleated RBC Absolute Count (auto) 0.13 K/uL (0-0) Neutrophils % (Manual) 6.1 % Lymphocytes % (Manual) 61.4 % Basophils % (Manual) 1.8 % Blast Cells % 30.7 % Nucleated Red Blood Cells % 7.5 % Neutrophils # (Manual) 0.10 K/uL (1.4-6.5) Total Absolute Neutrophils 0.10 K/uL (1.4-6.5) Lymphocytes # (Manual) 1.03 K/uL (1.2-3.4) Total Absolute Lymphocytes 1.03 K/uL (1.2-3.4) Basophils # (Manual) 0.03 K/uL (0-0.2) Blast Cells # 0.51 K/uL (0-0) Platelet Estimate SIGNIFIC DECREASED Giant Platelets 1+ Tear Drop Cells 1+ Prothrombin Time 10.7 SECONDS (9.0-12.0) Prothromb Time International Ratio 1.0 (0.9-1.1) Activated Partial Thromboplast Time 25.3 SECONDS (21.0-31.0) Partial Thromboplastin Ratio 1.0 Anion Gap 6.0 mmol/L (3-11) Est Creatinine Clear Calc Drug Dose 41.2 ml/min Estimated GFR () 63.3 Estimated GFR (Non- 54.6 BUN/Creatinine Ratio 19.7 (10-20) Calcium Level 8.6 mg/dl (8.5-10.1) Total Bilirubin 0.7 mg/dl (0.2-1) Direct Bilirubin 0.2 mg/dl (0-0.2) Aspartate Amino Transf (AST/SGOT) 22 U/L (15-37) Alanine Aminotransferase (ALT/SGPT) 14 U/L (12-78) Alkaline Phosphatase 57 U/L (45-117) Total Protein 6.8 gm/dl (6.4-8.2) Albumin 3.1 gm/dl (3.4-5.0) Laboratory results as reviewed by me. Medications Administered Medications (Trade) Dose Ordered Sig/Alonso Route Start Time Stop Time Status Last Admin Dose Admin Cefepime HCl 2000 mg/Dextrose 112.5 ml @ 200 mls/hr NOW IV 10/08/17 13:15 10/08/17 23:59 10/08/17 14:45 200 MLS/HR ED Course 1055: The patient was evaluated in room B2. A complete history and physical exam was performed. 1313: I reevaluated the patient. I discussed the test results with her and her daughter. They note that she is DNR/DNI. They verbalized agreement of the treatment plan. She will be evaluated for further management. 1315: Cefepime HCl 2000 mg/Dextrose 112.5 ml @ 200 mls/hr IV. 1320: I discussed the patient's case [facility] The patient will be further evaluated by her. Medical Decision This is an 87-year-old female presents with bleeding from her gums as well as rales on physical examination. I did perform a limited focused review of portions of the patient's old chart on the electronic medical record. The patient had blood work on the 4th that showed a platelet count of 12, hemoglobin of 7.5, and white count of 1.5. I did evaluate the patient as noted above. I did order neutropenic precautions. She does not have any active bleeding on her physical examination. She does, however, have rales on her lung exam. She denies any significant cough. IV access was established. I did order and personally review the patient's chest x-ray as described above. Her x-ray is consistent with her physical examination and she does have bibasilar infiltrates. Blood cultures were ordered. I did treat her with cefepime IV. I did order and review the patient's blood work as noted in the electronic medical record. She is pancytopenic and neutropenic. Her platelet count has not changed despite her platelet transfusion. I did discuss the test results with the patient and her family. I did recommend hospitalization for further care and evaluation. I did discuss case with the hospitalist and human services case manager. Medication Reconcilliation Current Medication List: was personally reviewed by me Blood Pressure Screening Patient's blood pressure: Normal blood pressure Blood pressure disposition: Did not require urgent referral Consults Time Called: 1317 Consulting Physician: Dr. Little [facility] hospitalist Returned Call: 1320 I discussed the patient's case with her. The patient will be further evaluated by her. Impression Primary Impression: Pneumonia of both lower lobes Additional Impressions: Neutropenia Pancytopenia Hyponatremia Scribe Attestation The scribe's documentation has been prepared under my direct and personally reviewed by me in its entirety. I confirm that the note above accurately reflects all work, treatment, procedures, and medical decision making performed by me. Departure Information Dispostion Being Evaluated By Hospitalist Referrals Breanna Ochoa DO (PCP) Patient Instructions [facility] Problem Qualifiers Primary Impression: Pneumonia of both lower lobes Pneumonia type: due to unspecified organism Qualified Codes: J18.1 - Lobar pneumonia, unspecified organism Additional Impressions: Neutropenia Neutropenia type: other Qualified Codes: D70.8 - Other neutropenia
[2017-10-08] MEDS ORDERED: CEFEPIME CONSULT ACTIVE PRN (16:45)
[2017-10-08 17:25] LABS: HEMATOCRIT 25.2 % (37-47); HEMOGLOBIN 8.7 g/dL (12.0-16.0); MEAN CORPUSCULAR HEMOGLOBIN 31.8 pg (25-34); MEAN CORPUSCULAR HGB CONC 34.5 g/dl (32-36); NUCLEATED RED BLOOD CELL ABS 0.18 K/uL (0-0); PLATELET COUNT 15 K/uL (130-400); WHITE BLOOD COUNT 2.56 K/uL (4.8-10.8)
[2017-10-08 19:38] VITALS: BP 122/72; PULSE 93; TEMP 36.6; O2SAT 97
[2017-10-08] MEDS ORDERED: CEFEPIME IV 1,000 MG in DEXTROSE 5% 100ML 100 ML IV SCH (21:00)
[2017-10-08 22:59] VITALS: BP 128/76; PULSE 94; TEMP 36.6; O2SAT 94
[2017-10-09] VITALS (13 sets, daily range): BP systolic 116–153; BP diastolic 69–83; PULSE 84–103; TEMP 36.3–36.8; O2SAT 94–98
[2017-10-09] MEDS: CEFEPIME IV 2,000 MG in SYRINGE 7.5 ML IV SCH ×2 (01:42→15:41)
[2017-10-09 06:27] LABS: HEMATOCRIT 22.7 % (37-47); MEAN CORPUSCULAR HEMOGLOBIN 32.8 pg (25-34); MEAN CORPUSCULAR HGB CONC 35.2 g/dl (32-36); NUCLEATED RED BLOOD CELL ABS 0.16 K/uL (0-0); PLATELET COUNT 12 K/uL (130-400); RED CELL DISTRIBUTION WIDTH CV 17.1 % (11.5-14.5); RED CELL DISTRIBUTION WIDTH SD 55.8 fL (36.4-46.3); WHITE BLOOD COUNT 1.96 K/uL (4.8-10.8)
[2017-10-09 06:38] LABS: CALCIUM 8.2 mg/dl (8.5-10.1); CREATININE 1.05 mg/dl (0.60-1.20); POTASSIUM 4.2 mmol/L (3.5-5.1)
[2017-10-09] MEDS: VANCOMYCIN IV 1,000 MG in SODIUM CHLORIDE 0.9% 250ML 250 ML IV SCH (10:30)
--- NOTE | 2017-10-09 10:45 | Progress Note ---
Progress Note Date of Service October 09, 2017. Progress Note ID Consult Dictated #[id number] A/P: 1. Neutropenia -Remains on IV abx pending blood culture results -Not convinced of pna as she is clinically stable, but with neutropenia would suggest 7 days abx, if culture negative could transition to po Augmentin -thank you
--- NOTE | 2017-10-09 11:43 | INFECT. DISEASE CONSULTATION ---
DATE OF CONSULTATION: 10/09/2017 HISTORY OF PRESENT ILLNESS: This is an 87-year-old female who was admitted to the hospital after she had gone bleeding. She does have a history of recently diagnosed AML, on chemotherapy, and was found to be thrombocytopenic. Her platelet count on arrival was 12. She did receive a platelet transfusion and her bleeding has stopped. She was also found to be neutropenic, her white blood cell count today is 1.9. She has been afebrile since admission. She was placed empirically on vancomycin and cefepime due to her neutropenia. She also had a chest x-ray which showed a questionable pneumonia versus atelectasis. She does admit to chronic dry cough that has been present for many years, but this has been unchanged. She denies any fevers or chills. She has no shortness of breath or pleuritic chest pain or hemoptysis. She denies any productive cough. She has no abdominal pain, nausea, vomiting, or diarrhea. She is concerned about being discharged from the hospital because her daughter has an upcoming trip to [place]. Her UA in the ER was negative. Her blood cultures are pending. Infectious diseases was consulted for antibiotic management for potential pneumonia. She is out of bed to chair and does not have any complaints on my examination. PAST MEDICAL HISTORY: Significant for history of breast cancer, hyperlipidemia, myelodysplastic disorder, recently diagnosed AML, and Meniere's disease. PAST SURGICAL HISTORY: Significant for D and C and cataract surgery. FAMILY HISTORY: Noncontributory. SOCIAL HISTORY: Negative for tobacco use, alcohol use, or drug use. ALLERGIES: SHE IS ALLERGIC TO BACTRIM AND EZETIMIBE. MEDICATIONS: Vancomycin, cefepime, Tylenol, Maalox, Milk of Magnesia, MiraLax, and Zofran. PHYSICAL EXAMINATION: VITAL SIGNS: She is afebrile, pulse 89, respiratory rate 18, blood pressure 131/83, oxygen saturation is 98% on room air. GENERAL: She is awake, alert, and oriented x3. She is in no acute distress. HEENT: Mucous membranes are moist. There is no oral bleeding. HEART: Regular. LUNGS: Clear bilaterally. ABDOMEN: Soft, nontender, nondistended. EXTREMITIES: There is no lower extremity edema bilaterally. SKIN: Without rash. LABORATORY STUDIES: CBC, white blood cell count 1.9, hemoglobin 8.0, platelets 12. Chemistry panel, sodium 133, potassium 4.2, chloride 99, bicarbonate 26, BUN 22, creatinine 1.0, glucose 102. UA was negative in the ER. Blood cultures are pending. IMAGING: As above. ASSESSMENT AND PLAN: Neutropenia. I do not know if her x-ray findings represent early pneumonia, however, in the presence of neutropenia, radiographic findings may be absent. She can remain on IV antibiotics. Her blood cultures are negative and she remains clinically stable. I would suggest transition to Augmentin for 7 days. Thank you for this consultation.
[2017-10-09 16:51] LABS: HEMOGLOBIN 7.7 g/dL (12.0-16.0); MEAN CELL VOLUME 92.8 fL (80-100); MEAN CORPUSCULAR HEMOGLOBIN 32.5 pg (25-34); NUCLEATED RED BLOOD CELL ABS 0.16 K/uL (0-0); PLATELET COUNT 29 K/uL (130-400); RED CELL DISTRIBUTION WIDTH CV 17.2 % (11.5-14.5); RED CELL DISTRIBUTION WIDTH SD 55.6 fL (36.4-46.3); WHITE BLOOD COUNT 1.89 K/uL (4.8-10.8)
--- NOTE | 2017-10-09 17:02 | Progress Note ---
Internal Med Progress Note Date of Service: October 09, 2017. Provider Documentation: SUBJECTIVE: Patient doing well on room air. Denies acute cough. Has been ambulatory. OBJECTIVE: Exam: General- no distress Eyes- EOMI Neck- no JVD Lungs- there are crackles bilaterally, no wheezing, no use of accessory muscles , breathing on room air Heart- Regular rate Abdomen- soft, nontender, positive bowel sounds Extremities- no edema Neuro- awake and alert ASSESSMENT & PLAN: 87-year-old female with breast cancer s/p chemo, history of MDS diagnosed in . She had bone marrow aspirate and biopsy showing AML with Myelodysplasia changed in Aug 2017 - flow showed 25% blasts and marrow showed 18% by morphologic count. 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 CXR 10/08/17 1. Interval development of right greater than left bibasilar opacities on a background of chronic bibasilar reticular suggests pneumonia or atelectasis. 2. Hyperinflation with diaphragmatic flattening. CXR 10/09/17 Cardiac silhouette is within normal limits. Atherosclerosis of the aorta. Mild biapical pleural-parenchymal scarring redemonstrated. No pneumothorax or large pleural effusion. Unchanged appearance of bibasilar alveolar opacities with chronic background bibasilar reticular densities. Mild hyperinflation. Bones appear grossly intact. Surgical clips project over the left axilla Plan AML with thrombocytopenia, neutropenia, and anemia (AML with pancytopenia) -gum bleeding has stopped -keep Hgb > 8 and PLT > 15 -s/p 1 unit platelet transfusion which raise platelt from 12,000 to 29,000 -Hgb 7.7 on 10/09/17, and will transfuse 1 unit PRBC -patient on neutropenic precautions while inpatient -as per hematology/oncology note: Patient has poor overall prognosis with AML and no active systemic treatment Possible Pneumonia -On Vancomycin and Zosyn, follow up cultures -as per infectious disease, pneumonia in context of neutropenia would suggest 7 days abx, if culture negative could transition to po Augmentin DVT ppx: SCDs, ambulation Vital Signs: Date Time Temp Pulse Resp B/P (MAP) Pulse Ox O2 Delivery O2 Flow Rate FiO2 10/09/17 16:07 36.8 88 18 123/76 (92) 98 Room Air 10/09/17 16:00 94 Room Air 10/09/17 08:00 96 Room Air 10/09/17 08:00 36.3 89 18 127/75 96 10/09/17 07:30 36.6 84 18 133/81 94 10/09/17 07:15 36.6 85 18 135/79 95 10/09/17 06:59 36.5 89 18 131/83 98 10/09/17 03:39 36.7 86 18 139/79 (99) 95 Room Air 10/09/17 00:00 Room Air 10/08/17 22:59 36.6 94 16 128/76 (93) 94 Room Air 10/08/17 19:38 36.6 93 16 122/72 (89) 97 Room Air Lab Results: Results Past 24 Hours Test 10/09/17 05:35 10/09/17 16:26 Range/Units White Blood Count 1.96 1.89 4.8-10.8 K/uL Red Blood Count 2.44 2.37 4.2-5.4 M/uL Hemoglobin 8.0 7.7 12.0-16.0 g/dL Hematocrit 22.7 22.0 37-47 % Mean Corpuscular Volume 93.0 92.8 80-100 fL Mean Corpuscular Hemoglobin 32.8 32.5 25-34 pg Mean Corpuscular Hemoglobin Concent 35.2 35.0 32-36 g/dl RDW Standard Deviation 55.8 55.6 36.4-46.3 fL RDW Coefficient of Variation 17.1 17.2 11.5-14.5 % Platelet Count 12 29 130-400 K/uL Nucleated RBC Absolute Count (auto) 0.16 0.16 0-0 K/uL Nucleated Red Blood Cells % 8.0 8.4 % Platelet Estimate SIGNIFIC DECREASED SIGNIFIC DECREASED Sodium Level 133 136-145 mmol/L Potassium Level 4.2 3.5-5.1 mmol/L Chloride Level 99 98-107 mmol/L Carbon Dioxide Level 26 21-32 mmol/L Anion Gap 7.0 3-11 mmol/L Blood Urea Nitrogen 22 7-18 mg/dl Creatinine 1.05 0.60-1.20 mg/dl Est Creatinine Clear Calc Drug Dose 37.3 ml/min Estimated GFR () 56.1 Estimated GFR (Non- 48.4 BUN/Creatinine Ratio 20.9 10-20 Random Glucose 102 70-99 mg/dl Calcium Level 8.2 8.5-10.1 mg/dl Neutrophils % (Manual) 8.0 % Lymphocytes % (Manual) 49.1 % Monocytes % (Manual) 1.8 % Eosinophils % (Manual) 1.8 % Blast Cells % 39.3 % Neutrophils # (Manual) 0.15 1.4-6.5 K/uL Total Absolute Neutrophils 0.15 1.4-6.5 K/uL Lymphocytes # (Manual) 0.93 1.2-3.4 K/uL Total Absolute Lymphocytes 0.93 1.2-3.4 K/uL Monocytes # (Manual) 0.03 0.11-0.59 K/uL Eosinophils # (Manual) 0.03 0-0.5 K/uL Blast Cells # 0.74 0-0 K/uL Tear Drop Cells 1+
--- NOTE | 2017-10-09 17:29 | DIAGNOSTIC IMAGING REPORT ---
CHEST 2 VIEWS ROUTINE HISTORY: 87 years-old Female follow up lung opacities on admission X ray follow-up study in a patient with bilateral pulmonary opacities COMPARISON: Chest radiograph 10/08/2017 and 08/27/2016, PET CT 07/26/2017 TECHNIQUE: PA and lateral views of the chest FINDINGS: Cardiac silhouette is within normal limits. Atherosclerosis of the aorta. Mild biapical pleural-parenchymal scarring redemonstrated. No pneumothorax or large pleural effusion. Unchanged appearance of bibasilar alveolar opacities with chronic background bibasilar reticular densities. Mild hyperinflation. Bones appear grossly intact. Surgical clips project over the left axilla. IMPRESSION: Persistent bibasilar opacities, suspicious for pneumonia. The above report was generated using voice recognition software. It may contain grammatical, syntax or spelling errors. Electronically signed by: Ilan Martinez M.D. 10/09/2017 5:28 PM Dictated Date/Time: 10/09/2017 5:25 PM
--- NOTE | 2017-10-09 17:47 | Medical Consult ---
Consultation Date of Consultation: October 09, 2017. Attending Physician: Erlin Chirinos M.D. Reason for Consultation: "Anemia, thrombocytopenia" in patient with AML History of Present Illness Ms. Mendez is 87 yo F known to consulting Hematology service. She is a case of breast cancer s/p chemo, history of MDS diagnosed in 08/24/16. She had bone marrow aspirate and biopsy showing AML with Myelodysplasia changed in Aug 2017 - flow showed 25% blasts and marrow showed 18% by morphologic count. 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 The patient is on a course of palliative care, with labs twice weekly and supportive transfusions PRN. She was seen by her Fruit Or Nut Farmer on 10/05/17. She came to [facility] ER on 10/08/17 for bleeding gums. Her PLT was 12K, ANC 100 with total WBC around 1000 and Hgb in 8 g/dL range. In work up, she had CXR that raised possibility of pneumonia and so she was started on vancomycin and cefepime. ID was consulted and CXR not convincing for PNA, but given her immunocompromised state CXR could be negative with impending infection so treatment has been continued. Additional history obtained from the patient at bedside. She states bleeding of her gums has ceased since PLT transfusion. She states she has chronic mild cough and dyspnea on exertion that are stable so she was surprised to find out that she may have pneumonia. She has not had fevers or sweats. She denies any other areas of bleeding. Past Medical/Surgical History Medical Problems: (1) Anemia Status: Acute (2) Hyponatremia Status: Acute (3) MDS (myelodysplastic syndrome) Status: Acute (4) Pancytopenia Status: Acute (5) Pancytopenia Status: Acute (6) Pneumonia of both lower lobes Status: Acute (7) Thrombocythemia Status: Acute (8) TMJ disease Status: Acute (9) Weakness Status: Acute Family History Cancer Social History Smoking Status: Never Smoker Occupation Status: retired Allergies Coded Allergies: Alcohol (Verified Allergy, Severe, diarrhea, bloating, bowel irritation, swelling, 10/08/17) Paclitaxel (Verified Allergy, Severe, diarrhea, bowel irritation, swelling , 10/08/17) Pneumococcal Vaccine (Verified Allergy, Severe, swelling, pain, 10/08/17) Polyoxyethylated Rewey Oil (Verified Allergy, Severe, bowel irritation, swelling, diarrhea, 10/08/17) Sulfamethoxazole w/Trimethoprim (Verified Adverse Reaction, Severe, unable to recall per patient, 10/08/17) Ezetimibe (Unverified Adverse Reaction, Unknown, "WEAK MUSCLES", 10/08/17) Current Inpatient Medications Current Inpatient Medications Medications (Trade) Dose Ordered Sig/Alonso Route Start Time Stop Time Status Last Admin Dose Admin Acetaminophen (Tylenol Tab) 650 mg Q4H PRN PO 10/08/17 14:00 11/07/17 13:59 Al Hydrox/Mg Hydrox/Simethicone (Maalox Max Susp) 15 ml Q4H PRN PO 10/08/17 14:00 11/07/17 13:59 Magnesium Hydroxide (Milk Of Magnesia Susp) 30 ml Q6H PRN PO 10/08/17 14:00 11/07/17 13:59 Polyethylene (Miralax Powder Packet) 17 gm DAILY PRN PO 10/08/17 14:00 11/07/17 13:59 Ondansetron HCl (Zofran Inj) 4 mg Q6H PRN IV 10/08/17 14:00 11/07/17 13:59 Vancomycin HCl 1000 mg/Sodium Chloride 270 ml @ 125 mls/hr Q18H IV 10/09/17 10:00 10/16/17 09:59 10/09/17 10:30 125 MLS/HR Miscellaneous Information (Consult) 1 ea UD PRN N/A 10/08/17 14:00 11/07/17 13:59 Cefepime HCl 2000 mg/Syringe 20 ml @ 5 mls/min Q12H IV 10/09/17 02:00 10/16/17 01:59 10/09/17 15:41 5 MLS/MIN Cefepime HCl (Consult) 1 ea UD PRN N/A 10/08/17 16:45 11/07/17 16:44 Review of Systems Constitutional: + fatigue, No fever Respiratory: + cough, + dyspnea on exertion Cardiovascular: No chest pain Abdomen: No GI bleeding Genitourinary - Female: No hematuria Hematologic / Lymphatic: + abnormal bleeding/bruising Physical Exam Date Time Temp Pulse Resp B/P (MAP) Pulse Ox O2 Delivery O2 Flow Rate FiO2 10/09/17 16:07 36.8 88 18 123/76 (92) 98 Room Air 10/09/17 16:00 94 Room Air 10/09/17 08:00 96 Room Air 10/09/17 08:00 36.3 89 18 127/75 96 10/09/17 07:30 36.6 84 18 133/81 94 10/09/17 07:15 36.6 85 18 135/79 95 10/09/17 06:59 36.5 89 18 131/83 98 10/09/17 03:39 36.7 86 18 139/79 (99) 95 Room Air 10/09/17 00:00 Room Air 10/08/17 22:59 36.6 94 16 128/76 (93) 94 Room Air 10/08/17 19:38 36.6 93 16 122/72 (89) 97 Room Air General Appearance: no apparent distress Respiratory/Chest: no respiratory distress, + crackles (posteriorly) Cardiovascular: regular rate, rhythm Extremities/Musculoskelatal: no calf tenderness Neurologic/Psych: alert, oriented x 3 Laboratory Results Last 24 Hours Test 10/09/17 05:35 10/09/17 16:26 White Blood Count 1.96 K/uL 1.89 K/uL Red Blood Count 2.44 M/uL 2.37 M/uL Hemoglobin 8.0 g/dL 7.7 g/dL Hematocrit 22.7 % 22.0 % Mean Corpuscular Volume 93.0 fL 92.8 fL Mean Corpuscular Hemoglobin 32.8 pg 32.5 pg Mean Corpuscular Hemoglobin Concent 35.2 g/dl 35.0 g/dl RDW Standard Deviation 55.8 fL 55.6 fL RDW Coefficient of Variation 17.1 % 17.2 % Platelet Count 12 K/uL 29 K/uL Nucleated RBC Absolute Count (auto) 0.16 K/uL 0.16 K/uL Nucleated Red Blood Cells % 8.0 % 8.4 % Platelet Estimate SIGNIFIC DECREASED SIGNIFIC DECREASED Sodium Level 133 mmol/L Potassium Level 4.2 mmol/L Chloride Level 99 mmol/L Carbon Dioxide Level 26 mmol/L Anion Gap 7.0 mmol/L Blood Urea Nitrogen 22 mg/dl Creatinine 1.05 mg/dl Est Creatinine Clear Calc Drug Dose 37.3 ml/min Estimated GFR () 56.1 Estimated GFR (Non- 48.4 BUN/Creatinine Ratio 20.9 Random Glucose 102 mg/dl Calcium Level 8.2 mg/dl Neutrophils % (Manual) 8.0 % Lymphocytes % (Manual) 49.1 % Monocytes % (Manual) 1.8 % Eosinophils % (Manual) 1.8 % Blast Cells % 39.3 % Neutrophils # (Manual) 0.15 K/uL Total Absolute Neutrophils 0.15 K/uL Lymphocytes # (Manual) 0.93 K/uL Total Absolute Lymphocytes 0.93 K/uL Monocytes # (Manual) 0.03 K/uL Eosinophils # (Manual) 0.03 K/uL Blast Cells # 0.74 K/uL Tear Drop Cells 1+ Assessment & Plan 1. AML 2. Possible pneumonia * Dr. Ortega spoke with hospitalist and advised to keep Hgb > 8 and PLT > 15 * Patient is s/p 1 unit PLT with no real increase in PLT * Patient has poor overall prognosis with AML and no active systemic treatment * Advised patient's daughter that hospice could be considered * Patient is currently on treatment for possible pneumonia- questional per ID, but ID recommending to continue current antibiotics * Blood cultures pendinf, if negative, patient could be transitioned to PO Augmentin per ID * Patient's residential designer will be by this evening to further discuss current plan of care Dr. Ortega is attending residential designer-please see her addendum. Attending note Patient seen and examined and discussed with patient and her daughter Perla Mendez at bedside and discussed with Natasha Abarca PA-C and agree with her note above 87 year old female with history of MDS, now transformed into AML, severe pancytopenia, she is transfusion dependent She refused treatment with decitabine or vidaza and opted for supportive care only On outpatient basis she checks CBC twice weekly and receives PRBC and platelet transfusions as needed She received a unit of PRBC and platelet transfusion on Monday. I spoke to her daughter Perla yesterday who said she had woken up with oozing from her gum and had blood in the mouth and she was sent to ER and is admitted since CXR suspicious for pneumonia. ID following. She is on IV antibiotic She denies any fever or chills She was prescribed prophylactic levaquin previously but patient states she did not take it because has felt well Her platelet count was 12 yesterday and she was transfused due to bleeding. She also received a unit of platelet today. She states that gingival bleeding has now resolved since she received transfusion today. She has fatigue She has occasional non productive cough. 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 I discussed overall poor retirement prognosis and complications of AML with the patient and her daughter including but not limited to symptomatic anemia, thrombocytopenia and bleeding, neutropenic fever, infection which can be severe/sepsis and If the disease take the usual course life expectancy in weeks to months. Patient states that she is not interested in receiving any chemotherapy and understand the poor prognosis of her AML Option of hospice was also discussed. She wants to continue with supportive transfusions as needed. She is aware about hospice and palliative care Patient and her daughter are interested in having palliative care consultation for goals of care and support for patient and family Her daughter Perla would like to be present for palliative care discussion CXR suspicious for pneumonia: on antibiotics as per ID Discussed with patient that after she complete the course of antibiotic for her pneumonia then she can take the prophylactic levaquin that was prescribed previously prophylactic due to her severe neutropenia continue neutropenia precautions Transfuse as needed if bleeding or platelet count<15 and if hemoglobin<8 follow up in office upon discharge support provided and her questions were answered thank you for consult
[2017-10-10] VITALS (7 sets, daily range): BP systolic 124–149; BP diastolic 75–91; PULSE 83–96; TEMP 36.2–36.9; O2SAT 94–98
[2017-10-10] MEDS: CEFEPIME IV 2,000 MG in SYRINGE 7.5 ML IV SCH ×2 (02:01→14:03)
[2017-10-10] MEDS: VANCOMYCIN IV 1,000 MG in SODIUM CHLORIDE 0.9% 250ML 250 ML IV SCH (04:25)
[2017-10-10 06:32] LABS: HEMATOCRIT 26.1 % (37-47); HEMOGLOBIN 8.9 g/dL (12.0-16.0); MEAN CELL VOLUME 89.4 fL (80-100); MEAN CORPUSCULAR HEMOGLOBIN 30.5 pg (25-34); MEAN CORPUSCULAR HGB CONC 34.1 g/dl (32-36); NUCLEATED RED BLOOD CELL ABS 0.15 K/uL (0-0); PLATELET COUNT 18 K/uL (130-400); RED CELL DISTRIBUTION WIDTH CV 18.9 % (11.5-14.5); RED CELL DISTRIBUTION WIDTH SD 59.6 fL (36.4-46.3); WHITE BLOOD COUNT 2.02 K/uL (4.8-10.8)
[2017-10-10 06:39] LABS: CALCIUM 8.1 mg/dl (8.5-10.1); CREATININE 0.9 mg/dl (0.60-1.20); POTASSIUM 3.9 mmol/L (3.5-5.1)
--- NOTE | 2017-10-10 07:15 | DIAGNOSTIC IMAGING REPORT ---
CHEST ONE VIEW PORTABLE HISTORY: 87 years-old Female bilateral pneumonia follow-up study in a patient with pneumonia COMPARISON: Chest radiographs 10/09/2017 and 10/08/2017 TECHNIQUE: Portable AP view of the chest FINDINGS: Cardiac silhouette is within normal limits. Atherosclerosis of the aorta. Biapical pleural-parenchymal scarring redemonstrated. Mild hyperinflation with chronic bilateral reticular opacities within a lower lung zone predominant distribution. Alveolar opacities of the bilateral lung bases are again noted, mildly improved from comparison. Blunting of the costophrenic angles. Degenerative changes of the shoulders and spine. IMPRESSION: 1. Persistent yet decreased bibasilar alveolar opacities suggest improved pneumonia. 2. Probable trace pleural effusions. The above report was generated using voice recognition software. It may contain grammatical, syntax or spelling errors. Electronically signed by: Ilan Martinez M.D. 10/10/2017 7:14 AM Dictated Date/Time: 10/10/2017 7:11 AM
--- NOTE | 2017-10-10 11:29 | Palliative Care Consultation ---
Consultation Date of Consultation: October 10, 2017. Requesting Physician: Dr. Chirinos Attending Physician: Dr. 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 She presented to the ED on 10/08 for bleeding gums. A CXR supported pneumonia. This patient has been receiving platelet and PRBC infusions, but she reports that her response is decreasing compared to what she used to feel - she is requiring the transfusions more frequently as well. Her last transfusion was yesterday. She received a bag of plts and PRBC yesterday. Her platelets were 12--> transfusion--> 29--> today (10/10) 18. Her Hgb was 7.7 on 10/09 and post transfusion was 8.9. This patient was informed about her poor prognosis and she is understanding about this. 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 We discussed GOALS OF CARE and she stated that she understands that she is starting to decline. She is not ready to fully discontinue blood and plt transfusions - she would like another few weeks of receiving them on an outpatient basis with transitioning to Hospice in a few weeks. We did fill out a POLST form to reflect her wishes, which is consistent with the already documented DNR CODE STATUS. She lives with her daughter at home and would like to return home with Home Health - with a transition to Hospice. Case management made aware of our conversation and will discuss options with the patient. Thank you so much for involving Palliative Care with this patient. We will follow accordingly. Social History Smoking Status: Never Smoker History of Alcohol Use: No Housing Status: lives with family Occupation Status: retired Review of Systems General: Appears comfortable lying in her bed HEENT:Patient denies TAYLOR, dizziness, visual changes CV:Pt denies CP, palpitations Resp:Pt denies SOB GI:Pt denies abdominal pain, N/V/D :Pt denies dysuria Skin:Pt denies any new rashes Allergies Coded Allergies: Alcohol (Verified Allergy, Severe, diarrhea, bloating, bowel irritation, swelling, 10/08/17) Paclitaxel (Verified Allergy, Severe, diarrhea, bowel irritation, swelling , 10/08/17) Pneumococcal Vaccine (Verified Allergy, Severe, swelling, pain, 10/08/17) Polyoxyethylated Avoca Oil (Verified Allergy, Severe, bowel irritation, swelling, diarrhea, 10/08/17) Sulfamethoxazole w/Trimethoprim (Verified Adverse Reaction, Severe, unable to recall per patient, 10/08/17) Ezetimibe (Unverified Adverse Reaction, Unknown, "WEAK MUSCLES", 10/08/17) Medications Current Inpatient Medications Medications (Trade) Dose Ordered Sig/Alonso Route Start Time Stop Time Status Last Admin Dose Admin Acetaminophen (Tylenol Tab) 650 mg Q4H PRN PO 10/08/17 14:00 11/07/17 13:59 Al Hydrox/Mg Hydrox/Simethicone (Maalox Max Susp) 15 ml Q4H PRN PO 10/08/17 14:00 11/07/17 13:59 Magnesium Hydroxide (Milk Of Magnesia Susp) 30 ml Q6H PRN PO 10/08/17 14:00 11/07/17 13:59 Polyethylene (Miralax Powder Packet) 17 gm DAILY PRN PO 10/08/17 14:00 11/07/17 13:59 Ondansetron HCl (Zofran Inj) 4 mg Q6H PRN IV 10/08/17 14:00 11/07/17 13:59 Cefepime HCl 2000 mg/Syringe 20 ml @ 5 mls/min Q12H IV 10/09/17 02:00 10/16/17 01:59 10/10/17 02:01 5 MLS/MIN Cefepime HCl (Consult) 1 ea UD PRN N/A 10/08/17 16:45 11/07/17 16:44 Physical Exam Date Time Temp Pulse Resp B/P (MAP) Pulse Ox O2 Delivery O2 Flow Rate FiO2 10/10/17 11:24 36.7 88 18 147/80 (102) 95 10/10/17 07:38 36.8 83 18 143/81 (101) 95 Room Air 10/10/17 07:27 Room Air 10/10/17 04:00 36.4 89 20 149/91 (110) 94 10/10/17 00:06 36.2 89 18 134/76 (95) 95 Room Air 10/10/17 00:00 Room Air 10/09/17 20:50 36.8 87 18 116/70 96 10/09/17 20:00 Room Air 10/09/17 19:51 36.5 96 18 117/69 (85) 95 Room Air 10/09/17 19:40 36.8 91 18 125/72 (89) 95 Room Air 10/09/17 18:40 36.6 97 18 124/69 95 10/09/17 18:25 36.7 103 18 126/73 96 10/09/17 18:04 36.4 97 18 153/77 96 10/09/17 16:07 36.8 88 18 123/76 (92) 98 Room Air 10/09/17 16:00 94 Room Air General Appearance: no apparent distress Neck: no JVD Respiratory: lungs clear, normal breath sounds, no respiratory distress, no accessory muscle use Cardiovascular: regular rate, rhythm, no edema, no gallop, no JVD, no murmur Abdomen: normal bowel sounds, non tender, soft Musculoskeletal: normal strength (5/5 throughout), normal tone Neurologic/Psychiatric: oriented x 3 Laboratory Results Last 24 Hours Test 10/09/17 16:26 10/10/17 05:54 White Blood Count 1.89 K/uL 2.02 K/uL Red Blood Count 2.37 M/uL 2.92 M/uL Hemoglobin 7.7 g/dL 8.9 g/dL Hematocrit 22.0 % 26.1 % Mean Corpuscular Volume 92.8 fL 89.4 fL Mean Corpuscular Hemoglobin 32.5 pg 30.5 pg Mean Corpuscular Hemoglobin Concent 35.0 g/dl 34.1 g/dl Platelet Count 29 K/uL 18 K/uL RDW Standard Deviation 55.6 fL 59.6 fL RDW Coefficient of Variation 17.2 % 18.9 % Nucleated RBC Absolute Count (auto) 0.16 K/uL 0.15 K/uL Neutrophils % (Manual) 8.0 % Lymphocytes % (Manual) 49.1 % Monocytes % (Manual) 1.8 % Eosinophils % (Manual) 1.8 % Blast Cells % 39.3 % Nucleated Red Blood Cells % 8.4 % 7.5 % Neutrophils # (Manual) 0.15 K/uL Total Absolute Neutrophils 0.15 K/uL Lymphocytes # (Manual) 0.93 K/uL Total Absolute Lymphocytes 0.93 K/uL Monocytes # (Manual) 0.03 K/uL Eosinophils # (Manual) 0.03 K/uL Blast Cells # 0.74 K/uL Platelet Estimate SIGNIFIC DECREASED SIGNIFIC DECREASED Tear Drop Cells 1+ Sodium Level 132 mmol/L Potassium Level 3.9 mmol/L Chloride Level 100 mmol/L Carbon Dioxide Level 26 mmol/L Anion Gap 6.0 mmol/L Blood Urea Nitrogen 18 mg/dl Creatinine 0.90 mg/dl Est Creatinine Clear Calc Drug Dose 43.5 ml/min Estimated GFR () 67.6 Estimated GFR (Non- 58.3 BUN/Creatinine Ratio 19.7 Random Glucose 104 mg/dl Calcium Level 8.1 mg/dl Assessment & Plan Palliative Performance Scale: 60 % Palliative Care Encounter Goals of Care Breast Ca MDS AML Palliative Care Recommendations: -CODE STATUS discussed: Patient would like to be DNR/DNI -A POLST form was filled out with the patient and placed on the chart. -The patient is not quite ready to stop blood and plt transfusions - would like to continue for a few weeks. Suggest discharge planning be Home health with an agency that would be able to transition to Hospice at home. Case management made aware of the plan and will see the patient with options. Counseling and Coordination Total time spent 70 minutes with >50% of that time spent assessing patient and discussing GOALS OF CARE and filling out a POLST form at the bedside with the patient.
--- NOTE | 2017-10-10 14:50 | Progress Note ---
Subjective Date of Service: October 10, 2017. Subjective tolerating abx, cxr improved. blood cultures remain negative, afebrile. wbc increased. Problem List Medical Problems: (1) Anemia Status: Acute (2) Hyponatremia Status: Acute (3) MDS (myelodysplastic syndrome) Status: Acute (4) Pancytopenia Status: Acute (5) Pancytopenia Status: Acute (6) Pneumonia of both lower lobes Status: Acute (7) Thrombocythemia Status: Acute (8) TMJ disease Status: Acute (9) Weakness Status: Acute Objective Vital Signs Date Time Temp Pulse Resp B/P (MAP) Pulse Ox O2 Delivery O2 Flow Rate FiO2 10/10/17 11:24 36.7 88 18 147/80 (102) 95 10/10/17 07:38 36.8 83 18 143/81 (101) 95 Room Air 10/10/17 07:27 Room Air 10/10/17 04:00 36.4 89 20 149/91 (110) 94 10/10/17 00:06 36.2 89 18 134/76 (95) 95 Room Air 10/10/17 00:00 Room Air 10/09/17 20:50 36.8 87 18 116/70 96 10/09/17 20:00 Room Air 10/09/17 19:51 36.5 96 18 117/69 (85) 95 Room Air 10/09/17 19:40 36.8 91 18 125/72 (89) 95 Room Air 10/09/17 18:40 36.6 97 18 124/69 95 10/09/17 18:25 36.7 103 18 126/73 96 10/09/17 18:04 36.4 97 18 153/77 96 10/09/17 16:07 36.8 88 18 123/76 (92) 98 Room Air 10/09/17 16:00 94 Room Air Laboratory Results Item Value Date Time Blood Culture - Preliminary Resulted 10/08/17 1140 Blood NO GROWTH TO DATE. Blood Culture - Preliminary Resulted 10/08/17 1150 Blood NO GROWTH TO DATE. Last 24 Hours Test 10/09/17 16:26 10/10/17 05:54 White Blood Count 1.89 K/uL 2.02 K/uL Red Blood Count 2.37 M/uL 2.92 M/uL Hemoglobin 7.7 g/dL 8.9 g/dL Hematocrit 22.0 % 26.1 % Mean Corpuscular Volume 92.8 fL 89.4 fL Mean Corpuscular Hemoglobin 32.5 pg 30.5 pg Mean Corpuscular Hemoglobin Concent 35.0 g/dl 34.1 g/dl Platelet Count 29 K/uL 18 K/uL RDW Standard Deviation 55.6 fL 59.6 fL RDW Coefficient of Variation 17.2 % 18.9 % Nucleated RBC Absolute Count (auto) 0.16 K/uL 0.15 K/uL Neutrophils % (Manual) 8.0 % Lymphocytes % (Manual) 49.1 % Monocytes % (Manual) 1.8 % Eosinophils % (Manual) 1.8 % Blast Cells % 39.3 % Nucleated Red Blood Cells % 8.4 % 7.5 % Neutrophils # (Manual) 0.15 K/uL Total Absolute Neutrophils 0.15 K/uL Lymphocytes # (Manual) 0.93 K/uL Total Absolute Lymphocytes 0.93 K/uL Monocytes # (Manual) 0.03 K/uL Eosinophils # (Manual) 0.03 K/uL Blast Cells # 0.74 K/uL Platelet Estimate SIGNIFIC DECREASED SIGNIFIC DECREASED Tear Drop Cells 1+ Sodium Level 132 mmol/L Potassium Level 3.9 mmol/L Chloride Level 100 mmol/L Carbon Dioxide Level 26 mmol/L Anion Gap 6.0 mmol/L Blood Urea Nitrogen 18 mg/dl Creatinine 0.90 mg/dl Est Creatinine Clear Calc Drug Dose 43.5 ml/min Estimated GFR () 67.6 Estimated GFR (Non- 58.3 BUN/Creatinine Ratio 19.7 Random Glucose 104 mg/dl Calcium Level 8.1 mg/dl Assessment and Plan (1) Neutropenia Assessment & Plan: continue IV abx, blood cultures negative, can change to augmentin x 7 days Problem Qualifiers (1) Neutropenia: Neutropenia type: other Qualified Codes: D70.8 - Other neutropenia
--- NOTE | 2017-10-10 16:49 | Progress Note ---
Medicine Progress Note Date & Time of Visit: October 10, 2017 at 16:30 . Subjective CC: Follow-up visit for pneumonia, MDS, AML. HPI: No fever or chills. Persistent cough and dyspnea on exertion. No chest pain. No nausea, vomiting, diarrhea. No abnormal bleeding or bruising. ROS: General- as noted above in HPI Resp- as noted above in HPI Cardiac- no chest pain, no edema GI- as noted above in HPI - no dysuria, no difficulty voiding . Objective Last 8 Hrs Date Time Temp Pulse Resp B/P (MAP) Pulse Ox O2 Delivery O2 Flow Rate FiO2 10/10/17 11:24 36.7 88 18 147/80 (102) 95 Physical Exam: General-sitting in chair, no distress Lungs- rales right base; no respiratory distress Cardiovascular- RRR; no murmur or gallop appreciated; no JVD; no pretibial edema Abdomen- + bowel sounds, soft, nontender Extremities- no cyanosis; no calf tenderness Neuro- alert, oriented Skin- warm & dry . Laboratory Results: Last 24 Hours Test 10/10/17 05:54 White Blood Count 2.02 K/uL Red Blood Count 2.92 M/uL Hemoglobin 8.9 g/dL Hematocrit 26.1 % Mean Corpuscular Volume 89.4 fL Mean Corpuscular Hemoglobin 30.5 pg Mean Corpuscular Hemoglobin Concent 34.1 g/dl RDW Standard Deviation 59.6 fL RDW Coefficient of Variation 18.9 % Platelet Count 18 K/uL Nucleated RBC Absolute Count (auto) 0.15 K/uL Nucleated Red Blood Cells % 7.5 % Platelet Estimate SIGNIFIC DECREASED Sodium Level 132 mmol/L Potassium Level 3.9 mmol/L Chloride Level 100 mmol/L Carbon Dioxide Level 26 mmol/L Anion Gap 6.0 mmol/L Blood Urea Nitrogen 18 mg/dl Creatinine 0.90 mg/dl Est Creatinine Clear Calc Drug Dose 43.5 ml/min Estimated GFR () 67.6 Estimated GFR (Non- 58.3 BUN/Creatinine Ratio 19.7 Random Glucose 104 mg/dl Calcium Level 8.1 mg/dl Assessment & Plan PNEUMONIA Afebrile. Persistent cough and dyspnea on exertion. Nasal MRSA screen negative and blood cultures negative, so MRSA pneumonia very unlikely. Discontinue vancomycin. Continue cefepime. MDS / AML / PANCYTOPENIA Hematology / Oncology consulted. Patient has declined treatment. Transfusion-dependent. CBC today demonstrated hemoglobin 8.9, platelet count 18,000, total white count 2020. Monitor hematologic parameters. Transfuse PRN. Palliative Care Medicine consulted. VTE PROPHYLAXIS No anticoagulants due to thrombocytopenia. SCDs. Ambulate. DISPOSITION Anticipated discharge to home. Family Medicine follow-up with Dr. Ochoa. . Current Inpatient Medications: Current Inpatient Medications Medications (Trade) Dose Ordered Sig/Alonso Route Start Time Stop Time Status Last Admin Dose Admin Acetaminophen (Tylenol Tab) 650 mg Q4H PRN PO 10/08/17 14:00 11/07/17 13:59 Al Hydrox/Mg Hydrox/Simethicone (Maalox Max Susp) 15 ml Q4H PRN PO 10/08/17 14:00 11/07/17 13:59 Magnesium Hydroxide (Milk Of Magnesia Susp) 30 ml Q6H PRN PO 10/08/17 14:00 11/07/17 13:59 Polyethylene (Miralax Powder Packet) 17 gm DAILY PRN PO 10/08/17 14:00 11/07/17 13:59 Ondansetron HCl (Zofran Inj) 4 mg Q6H PRN IV 10/08/17 14:00 11/07/17 13:59 Cefepime HCl 2000 mg/Syringe 20 ml @ 5 mls/min Q12H IV 10/09/17 02:00 10/16/17 01:59 10/10/17 14:03 5 MLS/MIN Cefepime HCl (Consult) 1 ea UD PRN N/A 10/08/17 16:45 11/07/17 16:44
--- NOTE | 2017-10-10 19:39 | Hematology/Oncology Prog Note ---
Hematology/Onc Progress Note Date of Service October 10, 2017. Subjective Mild nonproductive cough. Overall feels improved. no fever or chills or any bleeding symptoms at this time no mouth soreness. Appetite is good Review of Systems: Constitutional: + fatigue (mild), No fever, No chills ENT: No unusual epistaxis, No nasal symptoms Respiratory: + cough, No sputum, No wheezing, No shortness of breath, No dyspnea on exertion Abdomen: No pain, No nausea, No vomiting, No diarrhea Female : No dysuria Vital Signs Vital Signs Past 12 Hours Date Time Temp Pulse Resp B/P (MAP) Pulse Ox O2 Delivery O2 Flow Rate FiO2 10/10/17 19:10 36.6 96 18 124/75 (91) 94 10/10/17 11:24 36.7 88 18 147/80 (102) 95 10/10/17 07:38 36.8 83 18 143/81 (101) 95 Room Air 10/10/17 07:27 Room Air Gen: awake and alert NAD, patient lying comfortably in bed HEENT: anicteric mild pallor no mucositis Lungs: few bibasilar crackles CV: S1 S2 RRR Abd:: soft NT/ND Ext no edema NT skin: no ecchymoses or rash Laboratory Results Past 24 Hours Test 10/10/17 05:54 Range/Units White Blood Count 2.02 4.8-10.8 K/uL Red Blood Count 2.92 4.2-5.4 M/uL Hemoglobin 8.9 12.0-16.0 g/dL Hematocrit 26.1 37-47 % Mean Corpuscular Volume 89.4 80-100 fL Mean Corpuscular Hemoglobin 30.5 25-34 pg Mean Corpuscular Hemoglobin Concent 34.1 32-36 g/dl RDW Standard Deviation 59.6 36.4-46.3 fL RDW Coefficient of Variation 18.9 11.5-14.5 % Platelet Count 18 130-400 K/uL Nucleated RBC Absolute Count (auto) 0.15 0-0 K/uL Nucleated Red Blood Cells % 7.5 % Platelet Estimate SIGNIFIC DECREASED Sodium Level 132 136-145 mmol/L Potassium Level 3.9 3.5-5.1 mmol/L Chloride Level 100 98-107 mmol/L Carbon Dioxide Level 26 21-32 mmol/L Anion Gap 6.0 3-11 mmol/L Blood Urea Nitrogen 18 7-18 mg/dl Creatinine 0.90 0.60-1.20 mg/dl Est Creatinine Clear Calc Drug Dose 43.5 ml/min Estimated GFR () 67.6 Estimated GFR (Non- 58.3 BUN/Creatinine Ratio 19.7 10-20 Random Glucose 104 70-99 mg/dl Calcium Level 8.1 8.5-10.1 mg/dl Blood cultures No growth to date CXR 10/10/17 1. Persistent yet decreased bibasilar alveolar opacities suggest improved pneumonia. 2. Probable trace pleural effusions. 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 Patient had 2 episodes of gingival bleeding with platelet count of 12 so transfusion as needed to maintain platelet count >/=15 or if bleeding Patient states that she would like to continue transfusions as needed at this time. She states that she would like to continue this at least for a few weeks but that she would consider transition to hospice if transfusions become daily since she feels that would become burdensome for her at that point. She states that she is happy that gingival bleeding symptoms have resolved. PNA: Antibiotics per ID. CXR improving. ID following. blood cultures negative to date Letter done today for her daughter Perla, who had canceled her trip due to her mother's hospitalization to provide support. Maintain neutropenia precautions and avoid sick contacts due to severe neutropenia in setting of her AML support provided and her questions were answered.
[2017-10-11] VITALS (9 sets, daily range): BP systolic 124–158; BP diastolic 71–84; PULSE 86–105; TEMP 36.3–36.8; O2SAT 94–97
[2017-10-11] MEDS: CEFEPIME IV 2,000 MG in SYRINGE 7.5 ML IV SCH ×3 (01:43→14:00)
[2017-10-11 06:18] LABS: HEMATOCRIT 26.7 % (37-47); HEMOGLOBIN 9.1 g/dL (12.0-16.0); MEAN CELL VOLUME 90.5 fL (80-100); MEAN CORPUSCULAR HEMOGLOBIN 30.8 pg (25-34); MEAN CORPUSCULAR HGB CONC 34.1 g/dl (32-36); NUCLEATED RED BLOOD CELL ABS 0.15 K/uL (0-0); PLATELET COUNT 14 K/uL (130-400); RED CELL DISTRIBUTION WIDTH CV 18.8 % (11.5-14.5); RED CELL DISTRIBUTION WIDTH SD 59.8 fL (36.4-46.3); WHITE BLOOD COUNT 2.38 K/uL (4.8-10.8)
--- NOTE | 2017-10-11 11:22 | Progress Note ---
Subjective Date of Service: October 11, 2017. Subjective Pt evaluation today including: conversation w/ patient, physical exam, chart review, lab review pt seen in followup, oob to chair. states she is feeling well, denies cough, cp , sob, wheeze. no bleeding. cbc improving. ismael stopped yesterday, remains on cefepime, tolerating well. states she plans to go home tomorrow. all remaining ros reviewed and are negative. Problem List Medical Problems: (1) Anemia Status: Acute (2) Hyponatremia Status: Acute (3) MDS (myelodysplastic syndrome) Status: Acute (4) Pancytopenia Status: Acute (5) Pancytopenia Status: Acute (6) Pneumonia of both lower lobes Status: Acute (7) Thrombocythemia Status: Acute (8) TMJ disease Status: Acute (9) Weakness Status: Acute Objective Vital Signs Date Time Temp Pulse Resp B/P (MAP) Pulse Ox O2 Delivery O2 Flow Rate FiO2 10/11/17 10:03 Room Air 10/11/17 09:45 36.3 92 20 128/75 10/11/17 09:01 36.5 102 20 124/75 10/11/17 08:33 36.6 105 20 158/83 10/11/17 07:19 36.6 90 20 129/75 (93) 94 Room Air 10/11/17 04:41 36.6 87 18 152/79 (103) 96 Room Air 10/11/17 00:00 Room Air 10/10/17 23:29 36.9 91 18 146/78 (100) 98 Room Air 10/10/17 19:10 36.6 96 18 124/75 (91) 94 10/10/17 16:00 94 Room Air 10/10/17 11:24 36.7 88 18 147/80 (102) 95 Physical Exam General Appearance: WD/WN, no apparent distress Eyes: normal inspection, EOMI Neck: supple Respiratory/Chest: lungs clear, normal breath sounds, no respiratory distress Cardiovascular: regular rate, rhythm, no edema Abdomen: soft Extremities: non-tender, no pedal edema Neurologic/Psychiatric: alert, oriented x 3 Skin: normal color Laboratory Results Item Value Date Time Blood Culture - Preliminary Resulted 10/08/17 1150 Blood NO GROWTH TO DATE. Blood Culture - Preliminary Resulted 10/08/17 1140 Blood NO GROWTH TO DATE. Last 24 Hours Test 10/11/17 05:38 White Blood Count 2.38 K/uL Red Blood Count 2.95 M/uL Hemoglobin 9.1 g/dL Hematocrit 26.7 % Mean Corpuscular Volume 90.5 fL Mean Corpuscular Hemoglobin 30.8 pg Mean Corpuscular Hemoglobin Concent 34.1 g/dl Platelet Count 14 K/uL RDW Standard Deviation 59.8 fL RDW Coefficient of Variation 18.8 % Nucleated RBC Absolute Count (auto) 0.15 K/uL Neutrophils % (Manual) 4.4 % Lymphocytes % (Manual) 62.8 % Monocytes % (Manual) 1.8 % Basophils % (Manual) 0.9 % Blast Cells % 30.1 % Nucleated Red Blood Cells % 6.3 % Neutrophils # (Manual) 0.10 K/uL Total Absolute Neutrophils 0.10 K/uL Lymphocytes # (Manual) 1.49 K/uL Total Absolute Lymphocytes 1.49 K/uL Monocytes # (Manual) 0.04 K/uL Basophils # (Manual) 0.02 K/uL Blast Cells # 0.72 K/uL Platelet Estimate SIGNIFIC DECREASED Tear Drop Cells OCCASIONAL Assessment and Plan (1) Neutropenia Assessment & Plan: continue IV abx, blood cultures negative, can change to augmentin x 7 days ok for d/c from ID standpoint. Problem Qualifiers (1) Neutropenia: Neutropenia type: other Qualified Codes: D70.8 - Other neutropenia
[2017-10-11] MEDS ORDERED: VANCOMYCIN TROUGH ONE (15:30)
[2017-10-11] MEDS ORDERED: AMOXICILLIN/CLAVULANATE TAB 500 MG TAB PO ONE (17:30)
--- NOTE | 2017-10-11 22:30 | Progress Note ---
Medicine Progress Note Date & Time of Visit: October 11, 2017 at 17:10 . Subjective CC: Follow-up visit for pneumonia, MDS, AML. HPI: No fever or chills. Cough improved. No chest pain. No nausea, vomiting, diarrhea. No abnormal bleeding or bruising. Ambulating. ROS: General- as noted above in HPI Resp- as noted above in HPI Cardiac- no chest pain, no edema GI- as noted above in HPI - no dysuria, no difficulty voiding . Objective Last 8 Hrs Date Time Temp Pulse Resp B/P (MAP) Pulse Ox O2 Delivery O2 Flow Rate FiO2 10/11/17 19:37 36.8 98 16 129/77 (94) 97 Room Air 10/11/17 16:00 Room Air 10/11/17 15:04 36.5 86 20 128/71 (90) 95 Room Air Physical Exam: General-sitting in chair, no distress Lungs- rales right base; no respiratory distress Cardiovascular- RRR; no murmur or gallop appreciated; no JVD; no pretibial edema Abdomen- + bowel sounds, soft, nontender Extremities- no cyanosis; no calf tenderness Neuro- alert, oriented Skin- warm & dry . Laboratory Results: Last 24 Hours Test 10/11/17 05:38 White Blood Count 2.38 K/uL Red Blood Count 2.95 M/uL Hemoglobin 9.1 g/dL Hematocrit 26.7 % Mean Corpuscular Volume 90.5 fL Mean Corpuscular Hemoglobin 30.8 pg Mean Corpuscular Hemoglobin Concent 34.1 g/dl Platelet Count 14 K/uL RDW Standard Deviation 59.8 fL RDW Coefficient of Variation 18.8 % Nucleated RBC Absolute Count (auto) 0.15 K/uL Neutrophils % (Manual) 4.4 % Lymphocytes % (Manual) 62.8 % Monocytes % (Manual) 1.8 % Basophils % (Manual) 0.9 % Blast Cells % 30.1 % Nucleated Red Blood Cells % 6.3 % Neutrophils # (Manual) 0.10 K/uL Total Absolute Neutrophils 0.10 K/uL Lymphocytes # (Manual) 1.49 K/uL Total Absolute Lymphocytes 1.49 K/uL Monocytes # (Manual) 0.04 K/uL Basophils # (Manual) 0.02 K/uL Blast Cells # 0.72 K/uL Platelet Estimate SIGNIFIC DECREASED Tear Drop Cells OCCASIONAL Assessment & Plan PNEUMONIA Admission chest x-ray showed right lower lobe infiltrate. Treated with IV vancomycin and cefepime. Nasal MRSA screen negative and blood cultures negative, so MRSA pneumonia very unlikely. Discontinued vancomycin. Afebrile. Cough improved. Stop cefepime and transition to oral therapy with amoxicillin/clavulanic acid. MDS / AML / PANCYTOPENIA Hematology / Oncology consulted. Patient has declined treatment. Transfusion-dependent. CBC today demonstrated hemoglobin 9.1, white count 2380, platelet count 14,000. Monitor hematologic parameters. Transfuse PRN. Palliative Care Medicine consulted. Patient would like to continue transfusions as necessary at this time. Transfuse 1 bag of pheresed platelets today. VTE PROPHYLAXIS No anticoagulants due to thrombocytopenia. SCDs. Ambulate. DISPOSITION Anticipated discharge to home. Family Medicine follow-up with Dr. Ochoa. Daughter given update this morning by phone. . Current Inpatient Medications: Current Inpatient Medications Medications (Trade) Dose Ordered Sig/Alonso Route Start Time Stop Time Status Last Admin Dose Admin Acetaminophen (Tylenol Tab) 650 mg Q4H PRN PO 10/08/17 14:00 11/07/17 13:59 Al Hydrox/Mg Hydrox/Simethicone (Maalox Max Susp) 15 ml Q4H PRN PO 10/08/17 14:00 11/07/17 13:59 Magnesium Hydroxide (Milk Of Magnesia Susp) 30 ml Q6H PRN PO 10/08/17 14:00 11/07/17 13:59 Polyethylene (Miralax Powder Packet) 17 gm DAILY PRN PO 10/08/17 14:00 11/07/17 13:59 Amoxicillin/ Clavulanate Potassium (Augmentin Tab) 500 mg BIDM PO 10/12/17 08:00 10/19/17 07:59
[2017-10-12 04:08] VITALS: BP 126/75; PULSE 90; TEMP 36.7; O2SAT 96
[2017-10-12 07:00] LABS: HEMATOCRIT 27.3 % (37-47); HEMOGLOBIN 9.3 g/dL (12.0-16.0); MEAN CELL VOLUME 90.7 fL (80-100); MEAN CORPUSCULAR HEMOGLOBIN 30.9 pg (25-34); MEAN CORPUSCULAR HGB CONC 34.1 g/dl (32-36); PLATELET COUNT 16 K/uL (130-400); RED CELL DISTRIBUTION WIDTH CV 18.5 % (11.5-14.5); WHITE BLOOD COUNT 2.25 K/uL (4.8-10.8)
[2017-10-12] MEDS ORDERED: AMOXICILLIN/CLAVULANATE TAB 500 MG TAB PO SCH (08:00)
[2017-10-12 08:22] VITALS: BP 123/78; PULSE 98; TEMP 36.6; O2SAT 97
[2017-10-12 08:25] VITALS: BP 123/78; PULSE 98; TEMP 36.6; O2SAT 97
[2017-10-12] MEDS ORDERED: PARO10TA PO (11:54)
[2017-10-12] MEDS ORDERED: MAGN1TAB PO (11:56)
[2017-10-12] MEDS ORDERED: EPP3/2 IM (11:56)
--- NOTE | 2017-10-12 11:57 | Progress Note ---
Medicine Progress Note Date & Time of Visit: October 12, 2017 at 11:57 . Subjective Doing well. No fever or chills. Minimal nonproductive cough. Ambulating. No nausea, vomiting, diarrhea. No abnormal bruising or bleeding. Anxious to go home. . Objective Last 8 Hrs Date Time Temp Pulse Resp B/P (MAP) Pulse Ox O2 Delivery O2 Flow Rate FiO2 10/12/17 08:28 Room Air 10/12/17 08:25 36.6 98 18 97 Room Air 10/12/17 08:22 36.6 98 18 123/78 (93) 97 Room Air 10/12/17 04:08 36.7 90 20 126/75 (92) 96 Room Air Physical Exam: General-sitting in chair, no distress Lungs- rales right base; no respiratory distress Cardiovascular- RRR; no murmur or gallop appreciated; no JVD; no pretibial edema Abdomen- + bowel sounds, soft, nontender Extremities- no cyanosis; no calf tenderness Neuro- alert, oriented Skin- warm & dry . Laboratory Results: Last 24 Hours Test 10/12/17 05:30 White Blood Count 2.25 K/uL Red Blood Count 3.01 M/uL Hemoglobin 9.3 g/dL Hematocrit 27.3 % Mean Corpuscular Volume 90.7 fL Mean Corpuscular Hemoglobin 30.9 pg Mean Corpuscular Hemoglobin Concent 34.1 g/dl RDW Standard Deviation 59.0 fL RDW Coefficient of Variation 18.5 % Platelet Count 16 K/uL Nucleated RBC Absolute Count (auto) 0.10 K/uL Nucleated Red Blood Cells % 4.5 % Platelet Estimate SIGNIFIC DECREASED Assessment & Plan PNEUMONIA Admission chest x-ray showed right lower lobe infiltrate. Treated with IV vancomycin and cefepime. Nasal MRSA screen negative and blood cultures negative, so MRSA pneumonia very unlikely. Discontinued vancomycin. Afebrile. Cough improved. Stop cefepime and transition to oral therapy with amoxicillin/clavulanic acid to complete 7 days of therapy. MDS / AML / PANCYTOPENIA Hematology / Oncology consulted. Patient has declined treatment. Transfusion-dependent. CBC today demonstrated hemoglobin 9.1, white count 2380, platelet count 14,000. Monitor hematologic parameters. Transfuse PRN. Palliative Care Medicine consulted. Patient would like to continue transfusions as necessary at this time. Transfused 1 bag of pheresed platelets yesterday. Platelet count today 16,000. Arrangements made for home health nursing to draw all CBCs every Monday/ Monday/Monday. Transfuse as necessary. VTE PROPHYLAXIS No anticoagulants due to thrombocytopenia. SCDs. Ambulate. DISPOSITION Discharge to home. Family Medicine follow-up with Dr. Ochoa. . Current Inpatient Medications: Current Inpatient Medications Medications (Trade) Dose Ordered Sig/Alonso Route Start Time Stop Time Status Last Admin Dose Admin Acetaminophen (Tylenol Tab) 650 mg Q4H PRN PO 10/08/17 14:00 11/07/17 13:59 Al Hydrox/Mg Hydrox/Simethicone (Maalox Max Susp) 15 ml Q4H PRN PO 10/08/17 14:00 11/07/17 13:59 Magnesium Hydroxide (Milk Of Magnesia Susp) 30 ml Q6H PRN PO 10/08/17 14:00 11/07/17 13:59 Polyethylene (Miralax Powder Packet) 17 gm DAILY PRN PO 10/08/17 14:00 11/07/17 13:59 Amoxicillin/ Clavulanate Potassium (Augmentin Tab) 500 mg BIDM PO 10/12/17 08:00 10/19/17 07:59 10/12/17 07:50 500 MG
[2017-10-12] MEDS ORDERED: AMOX875T PO (12:00)
[2017-10-12 12:05] VITALS: BP 155/84; PULSE 100; TEMP 36.3; O2SAT 95
--- NOTE | 2017-10-12 12:05 | Discharge Instructions ---
Discharge Instructions Date of Service October 12, 2017. Admission Reason for Admission: pneumonia, low blood counts . Discharge Discharge Diagnosis / Problem: pneumonia, low blood counts Discharge Goals Goal(s): Improve function, Improve disease control Activity Recommendations Activity Limitations: resume your previous activity Driving or Machine Use: Best to play it safe and not drive at this time. . Instructions / Follow-Up Instructions / Follow-Up APPOINTMENTS: FAMILY MEDICINE 10/17/2017 11:00 AM Breanna Ochoa DO HEMATOLOGY / ONCOLOGY 10/23/2017 9:30 AM Natasha Abarca PA-C OTHER INSTRUCTIONS: Take amoxicillin / clavulanic acid (Augmentin) twice a day with food until gone. Avoid any medications that contain aspirin, ibuprofen (Advil or Motrin), naproxen (Aleve), or other similar medications. They can make you bleed more easily. Home health nurses will check your CBC (complete blood count) every Monday- Monday-Monday and send results to Dr. Ortega. Seek medical attention if you have: * temperature above 101 * chest pain or trouble breathing * abdominal pain, nausea, vomiting * diarrhea, dark stools or bloody stools * abnormal bleeding or bruising * any unanswered questions or concerns Call 911 if symptoms are severe. Call if you have any questions or problems. My cell # is [phone]. You can also reach a [facility] hospitalist on duty at [facility] 24 hours a day by calling [phone]. Please take good care of yourself. Javy Cobian . Current Hospital Diet Patient's current hospital diet: Regular Diet Discharge Diet Recommended Diet: AHA Diet (Heart Healthy) Pending Studies Studies pending at discharge: no Medical Emergencies . Who to Call and When: Medical Emergencies: If at any time you feel your situation is an emergency, please call 911 immediately. . Non-Emergent Contact Non-Emergency issues call your: Primary Care Provider, Hospital Doctor, Oncologist . . "Provider Documentation" section prepared by Javy Cobian. .
--- NOTE | 2017-10-13 05:24 | Discharge Summary ---
Discharge Summary Date of Service October 13, 2017. Discharge Summary Admission Date: October 08, 2017 at 13:26 Discharge Date: October 12, 2017 Discharge Disposition: Home with services Principal Diagnosis: pneumonia OTHER ACUTE / SECONDARY DIAGNOSES: pancytopenia . 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 Procedures: IV antibiotics transfusion 2 bags pheresed platelets transfusion 1 unit irradiated/leukocyte reduced pRBC's. . Consultations: Hematology / Oncology with Dr. Ortega. Palliative Care Medicine ID . Pending Studies/Follow-Up: CBC's ordered q Mon-Wed-Mon, to be drawn by home health nursing . Medication Reconciliation New Medications: Amoxicillin & Pot Clavulanate (Augmentin 875-125 mg) 1 Tab Tab 1 TAB PO BID, #6 TAB take with food Continued Medications: Atorvastatin (Lipitor) 10 Mg Tab 10 MG PO DAILY, 0 Refills Epinephrine (Epipen) 0.3 Mg/0.3 Ml Inj 0.3 MG IM UD, BOX Ergocalciferol (Vitamin D 71238 Unit) 50,000 Unit Cap 34289 UNIT PO WK, CAP takes on Monday Magnesium Chloride-Calcium Car (Nu-Mag 71.5-119 mg) 1 Tab Tab 1 TAB PO DAILY Paroxetine Hcl (Paxil) 10 Mg Tab 10 MG PO DAILY, TAB Admission Information HPI (per Admitting provider): This is a 87-year-old female with prior history of breast cancer status post chemo, history of myelodysplastic syndrome diagnosed in 08/24/2016, 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 Ortega Patient developed gum bleeding/with platelet count 12 Had 1 unit of PRBC/1 unit of platelet transfusion on 10/06/2017 This morning she woke up with bleeding along the gumline again called Dr. Ortega' s office Was asked to come to ER for blood work check and possible platelet transfusion Lab work in ER showed pancytopenia with hemoglobin of 8.2/ platelet 12 Neutropenia total neutrophil count 1.6K absolute ANC 100 Chest x-ray: 1. Interval development of right greater than left obesity basilar opacity background of chronic bibasilar reticular change suggest pneumonia or atelectasis noted No report of fever or chills Patient denies of any productive cough or sputum Chronic dry cough for years Denies of any chest pain/shortness of breath/dyspnea on exertion . Physical Exam (per Admitting): General Appearance: no apparent distress (No apparent distress) Head: normocephalic, atraumatic Eyes: normal inspection, PERRL, EOMI, sclerae normal Neck: no carotid bruits, trachea midline Respiratory/Chest: lungs clear, normal breath sounds, no respiratory distress Cardiovascular: regular rate, rhythm, no edema, no JVD Abdomen/GI: normal bowel sounds, non tender, soft Extremities/Musculoskelatal: normal inspection, no calf tenderness, normal capillary refill Neurologic/Psych: no motor/sensory deficits, alert, normal mood/affect, oriented x 3 Hospital Course PNEUMONIA Admission chest x-ray showed right lower lobe infiltrate. Neutropenic. Nonproductive cough. Initially treated with IV vancomycin and cefepime. Nasal MRSA screen negative and blood cultures negative, so MRSA pneumonia very unlikely. Discontinued vancomycin. Afebrile. Cough improved. Stopped cefepime and transitioned to oral therapy with amoxicillin/clavulanic acid to complete 7 days of therapy. MDS / AML / PANCYTOPENIA Hematology / Oncology consulted. Patient has declined treatment. Transfusion-dependent. Hemoglobin as low as 7.7. Platelet count as low as 12,000, associated with gingival bleeding. Monitor hematologic parameters. Transfuse PRN. Received 1 unit of irradiated/leukocyte reduced pRBC's. Transfused 2 bags of pheresed platelets. Hemoglobin day of discharge 9.3. Platelet count day of discharge 16,000. Arrangements made for home health nursing to draw all CBCs every Monday/ Monday/Monday. Transfuse as necessary. VTE PROPHYLAXIS No anticoagulants due to thrombocytopenia. SCDs. Ambulate. ADVANCE DIRECTIVES Patient has myelodysplastic syndrome, AML, transfusion dependent anemia and thrombocytopenia. She has declined aggressive therapies. Palliative Care Medicine consultation obtained. Code status is DNR. Patient would like to continue to receive blood transfusions at this time as long as they improve symptoms and optimize quality of life. She may consider hospice care in the future. POLST form completed. DISPOSITION Discharged to home. Family Medicine follow-up with Dr. Ochoa. Hematology / Oncology follow-up with Dr. Ortega. . Total time spent on discharge = 45 min. This includes examination of the patient, discharge planning, medication reconciliation, and communication with other providers. . Discharge Instructions Date of Service October 12, 2017. Admission Reason for Admission: pneumonia, low blood counts . Discharge Discharge Diagnosis / Problem: pneumonia, low blood counts Discharge Goals Goal(s): Improve function, Improve disease control Activity Recommendations Activity Limitations: resume your previous activity Driving or Machine Use: Best to play it safe and not drive at this time. . Instructions / Follow-Up Instructions / Follow-Up APPOINTMENTS: FAMILY MEDICINE 10/17/2017 11:00 AM Breanna Ochoa, DO HEMATOLOGY / ONCOLOGY 10/23/2017 9:30 AM Natasha Abarca PA-C OTHER INSTRUCTIONS: Take amoxicillin / clavulanic acid (Augmentin) twice a day with food until gone. Avoid any medications that contain aspirin, ibuprofen (Advil or Motrin), naproxen (Aleve), or other similar medications. They can make you bleed more easily. Home health nurses will check your CBC (complete blood count) every Monday- Monday-Monday and send results to Dr. Ortega. Seek medical attention if you have: * temperature above 101 * chest pain or trouble breathing * abdominal pain, nausea, vomiting * diarrhea, dark stools or bloody stools * abnormal bleeding or bruising * any unanswered questions or concerns Call 911 if symptoms are severe. Call if you have any questions or problems. My cell # is [phone]. You can also reach a [facility] hospitalist on duty at [facility] 24 hours a day by calling [phone]. Please take good care of yourself. Javy Cobian . Current Hospital Diet Patient's current hospital diet: Regular Diet Discharge Diet Recommended Diet: AHA Diet (Heart Healthy) Pending Studies Studies pending at discharge: no Medical Emergencies . Who to Call and When: Medical Emergencies: If at any time you feel your situation is an emergency, please call 911 immediately. . Non-Emergent Contact Non-Emergency issues call your: Primary Care Provider, Hospital Doctor, Oncologist . . "Provider Documentation" section prepared by Javy Cobian. . . Additional Copies To Dominic Ortega MD; Breanna Ochoa,DO
== END 2017-10-12 13:14 | disposition home health service (06) | DRG 811 ==
LOC: C.EDB 10:23 → C.4E 13:26 → CANRESERV 13:45 → ENRESERV 13:45 → EDBEDREQSVC 14:55 → EDBEDREQTM 15:10 → EDBEDREQSVC 15:10 → ENRESERV 15:19
PROVIDERS: ADMIT Hospitalist; ATTEND Hospitalist
DX: D46.9 Myelodysplastic syndrome, unspecified (principal); J18.9 Pneumonia, unspecified organism; C92.00 Acute myeloblastic leukemia, not having achieved remission; E87.1 Hypo-osmolality and hyponatremia; E78.5 Hyperlipidemia, unspecified; Z79.899 Other long term (current) drug therapy; Z66 Do not resuscitate; Z85.3 Personal history of malignant neoplasm of breast; Z92.21 Personal history of antineoplastic chemotherapy; Z88.8 Allergy status to other drugs, medicaments and biological substances; Z88.7 Allergy status to serum and vaccine; Z88.2 Allergy status to sulfonamides; Z91.048 Other nonmedicinal substance allergy status

== ENCOUNTER 2017-10-19 09:55 | Inpatient (IN) | payer OTHER, MEDICARE ==
[~2017-10-19] VITALS: Ht 162.6 cm; Wt 67.0 kg
[2017-10-19] VITALS (8 sets, daily range): BP systolic 135–169; BP diastolic 74–96; PULSE 86–93; TEMP 36.6–37.2; O2SAT 95–98; Ht 162.6 cm; Wt 67.0 kg
[~2017-10-19 09:55] MED LIST changes: +AMOX875T PO; +EPP3/2 IM; +MAGN1TAB PO; +PARO10TA PO; -SLWMEC PO; -paxil PO
[2017-10-19] MEDS: SODIUM CHLORIDE 0.9% 1000ML 1,000 ML IV STA ×2 (11:52→12:00)
[2017-10-19 11:57] LABS: PTT PATIENT 26.1 SECONDS (21.0-31.0)
[2017-10-19 11:59] LABS: HEMOGLOBIN 7.6 g/dL (12.0-16.0); MEAN CELL VOLUME 88.7 fL (80-100); MEAN CORPUSCULAR HEMOGLOBIN 30.6 pg (25-34); MEAN CORPUSCULAR HGB CONC 34.5 g/dl (32-36); NUCLEATED RED BLOOD CELL ABS 0.21 K/uL (0-0); PLATELET COUNT 14 K/uL (130-400); RED CELL DISTRIBUTION WIDTH SD 55.5 fL (36.4-46.3); WHITE BLOOD COUNT 2.45 K/uL (4.8-10.8)
[2017-10-19 12:04] LABS: ALBUMIN 3.3 gm/dl (3.4-5.0); ALKALINE PHOSPHATASE 56 U/L (45-117); ALT/SGPT 14 U/L (12-78); AST/SGOT 19 U/L (15-37); BLOOD UREA NITROGEN 13 mg/dl (7-18); CALCIUM 8.8 mg/dl (8.5-10.1); CARBON DIOXIDE 26 mmol/L (21-32); CREATININE 0.86 mg/dl (0.60-1.20); GLUCOSE 105 mg/dl (70-99); LIPASE 111 U/L (73-393); POTASSIUM 4.1 mmol/L (3.5-5.1); SODIUM 129 mmol/L (136-145)
--- NOTE | 2017-10-19 12:21 | DIAGNOSTIC IMAGING REPORT ---
CHEST 2 VIEWS ROUTINE CLINICAL HISTORY: 87 years-old Female presenting with r/o pneumonia R rales cough fatigue hx lymphoma. TECHNIQUE: PA and lateral views of the chest were obtained. COMPARISON: 10/10/2017. FINDINGS: Atherosclerosis of the aortic arch. Cardiac silhouette normal in size. Minimal vague opacities at the lung bases greater on the right. These have not significantly changed since prior. No new focal opacity. No large effusion or pneumothorax. Osseous structures normal. Upper abdomen normal. IMPRESSION: 1. Persistent bibasilar opacities greater on the right. Aspiration or infection are difficult to exclude. Alternatively, this may represent atelectasis. Cross-sectional imaging could be considered as clinically indicated. Electronically signed by: Shreyas Augustine M.D. 10/19/2017 12:20 PM Dictated Date/Time: 10/19/2017 12:19 PM
[2017-10-19] MEDS ORDERED: MoRPHine SULFATE 4 MG/ML 1 ML CARP\\VIAL IV STA (12:28)
--- NOTE | 2017-10-19 15:46 | DIAGNOSTIC IMAGING REPORT ---
ABD/PELVIS ORAL CONT ONLY CLINICAL HISTORY: 87 years-old Female presenting with abd distention requested by onc. TECHNIQUE: Multidetector CT of the abdomen and pelvis was performed after the administration of oral contrast only. IV contrast: None. A dose lowering technique was used consistent with the principles of ALARA (as low as reasonably achievable). COMPARISON: None. CT DOSE (mGy.cm): The estimated cumulative dose is 417.72 mGy.cm. FINDINGS: Door Person topogram: Unremarkable. Lung bases: Dependent reticular and solid consolidation in the lower lobes, right greater than left. Associated bronchial wall thickening and subsegmental bronchial debris. Normal heart size. Coronary artery and mitral annular calcification. The intraventricular blood pool is less dense and adjacent myocardium suggesting anemia. Trace right and small left pleural effusions. No pericardial effusion. Liver: Normal morphology. Normal density. Focal fatty deposition may be present at the inferior right hepatic lobe. Biliary: No gross biliary ductal dilatation allowing for noncontrast technique. Gallbladder contains gallstones. Pancreas: Mild parenchymal atrophy. Spleen: Normal. Adrenal glands: Normal noncontrast appearance. The spleen is top normal in size measuring 12.9 cm in sagittal dimension. Kidneys and ureters: Mild bilateral LE calyectasis and significant perinephric and periureteral fat stranding. The ureters are rather poorly delineated in their mid to distal courses. No nephrolithiasis. No ureteral calculi. Bladder: The configuration of the bladder suggests pelvic ligamentous laxity. No bladder calculi or wall thickening is apparent. Pelvic organs: Normal noncontrast appearance. Bowel: Mild perirectal fat infiltration. Significant thickening of the mesorectal fascia (for in-stent series 3 image 362). Diverticulosis of the distal sigmoid colon. No bowel obstruction. No pericolonic or perienteric inflammatory change. The appendix is normal. Peritoneal cavity: No free fluid or intraperitoneal gas. Presacral fluid or fascial thickening. Lymph nodes: Multiple enlarged lymph nodes in the upper abdomen and small bowel mesentery. These measure up to 19 mm in the short axis (series 3 image 283). Mild surrounding fat stranding in the upper abdomen and root of the small bowel mesentery. No significantly enlarged pelvic lymph nodes. Vasculature: Atherosclerosis of the normal caliber abdominal aorta. Abdominal wall: Normal. Musculoskeletal: Degenerative changes of the spine. IMPRESSION: 1. Enlarged lymph nodes in the upper abdomen and small bowel mesentery, which are suspicious for lymphoproliferative disease given the clinical history. Surrounding inflammatory change could represent posttreatment changes in the appropriate clinical setting. 2. Borderline splenomegaly. 3. Significant inflammatory change surrounding the rectum with fascial thickening in the pelvis. This is of uncertain etiology. Correlate with a history of pelvic radiation, which can cause these findings. Alternatively, an infectious proctitis could be considered. 4. Diverticulosis. 5. Bibasilar changes in the lungs suggest chronic aspiration. 6. Anemia. 7. Trace right and small left pleural effusions. Electronically signed by: Shreyas Augustine M.D. 10/19/2017 3:44 PM Dictated Date/Time: 10/19/2017 3:34 PM
--- NOTE | 2017-10-19 17:17 | DIAGNOSTIC IMAGING REPORT ---
(CHEST) THORAX WITHOUT CT DOSE: 212.37 mGy.cm HISTORY: Cough. TECHNIQUE: Multiaxial CT images of the chest were performed without contrast. A dose lowering technique was utilized adhering to the principles of ALARA. COMPARISON: Chest 10/19/2017. PET CT 07/26/2017. FINDINGS: The central airways are patent. No pleural effusions. No pneumothorax. There is a 6 mm nodule within the left lower lobe on image 160. This is not significantly changed. There is also a stable 5 mm nodule within the right middle lobe on image 186. Interval progression of the interstitial thickening and consolidation within the bilateral lower lobes posteriorly. Therefore, this likely represents a pneumonia. Trace bilateral pleural effusions. Biapical pleural-parenchymal densities persist. This favors chronic change. Partially visualized spleen remains enlarged. Increase in size in the mediastinal lymph nodes with the dominant right peritracheal lymph node measuring 2.6 x 2.0 cm. The heart is normal in size. Right inguinal lymph nodes have also increased in size. For comparative purposes a 9 mm right axillary lymph node previously measured 6 mm. Normal caliber thoracic aorta. Anemia. IMPRESSION: 1. Progressive consolidation within the bilateral lower lobes posteriorly. This likely represents a pneumonia. 2. Trace bilateral pleural effusions. 3. Progressive mediastinal and right axillary lymphadenopathy consistent with the patient's history of lymphoma. 4. There are 2 stable subcentimeter pulmonary nodules with the largest in the left lower lobe measuring 6 mm. Continued follow-up is recommended. 5. Splenomegaly. Electronically signed by: Jordon Bell M.D. 10/19/2017 5:16 PM Dictated Date/Time: 10/19/2017 5:07 PM
[2017-10-19] MEDS ORDERED: PIPERACILLIN/TAZOBACTAM 4.5 GM/100ML D5W IV STA (17:23)
[2017-10-19] MEDS ORDERED: VANCOMYCIN 1GM ED/ASU OMNICELL IV STA (17:23)
--- NOTE | 2017-10-19 17:32 | EMERGENCY ROOM VISIT NOTE ---
History Report prepared by Samanta: Isreal Cruz Under the Supervision of: Dr. Jake Garcia M.D. First contact with patient: 10:13 Chief Complaint: REFERRED BY DOCTOR Stated Complaint: NEUTROPENIC,PNEUMONIA,LEUKEMIA History of Present Illness The patient is a 87 year old female who presents to the Emergency Room with complaints of constant generalized weakness beginning a few hours ago. She has a history of leukemia, and lymphoma. She currently has pneumonia as well. The patient's daughter notes that the patient has a lot of fluid build up to her abdomen and legs. The patient was unable to get out of bed today due to feeling so weak. She spoke with her oncologist and was referred to the ED. The patient is on Levaquin for her pneumonia (x2 days). She denies any fevers, chest pain, SOB, or black/bloody stools. She is not on any blood thinners. The patient is not receiving chemotherapy or radiation treatments currently. She is on palliative care. Source of History: patient Onset: A few hours ago Position: other (generalized) Quality: other (weakness) Timing: constant Associated Symptoms: No fevers, No chest pain, No SOB, No melena, No hematochezia Review of Systems See HPI for pertinent positives and negatives. A total of ten systems were reviewed and were otherwise negative. Past Medical & Surgical Medical Problems: (1) AML (acute myelogenous leukemia) (2) Breast cancer (3) HLD (hyperlipidemia) (4) MDS (myelodysplastic syndrome) (5) Meniere disease (6) Pancytopenia (7) Pneumonia Surgical Problems: (1) H/O dilation and curettage (2) History of cataract surgery Family History Cancer Social History Smoking Status: Never Smoker Alcohol Use: none Occupation Status: retired Current/Historical Medications Scheduled Atorvastatin (Lipitor), 10 MG PO DAILY Epinephrine (Epipen), 0.3 MG IM UD Ergocalciferol (Vitamin D 92233 Unit), 50,000 UNIT PO WK Magnesium Chloride-Calcium Car (Nu-Mag 71.5-119 mg), 1 TAB PO DAILY Paroxetine Hcl (Paxil), 10 MG PO DAILY Allergies Coded Allergies: Alcohol (Verified Allergy, Severe, diarrhea, bloating, bowel irritation, swelling, 10/13/17) Paclitaxel (Verified Allergy, Severe, diarrhea, bowel irritation, swelling , 10/13/17) Pneumococcal Vaccine (Verified Allergy, Severe, swelling, pain, 10/13/17) Polyoxyethylated [place]wood Oil (Verified Allergy, Severe, bowel irritation, swelling, diarrhea, 10/13/17) Sulfamethoxazole w/Trimethoprim (Verified Adverse Reaction, Severe, unable to recall per patient, 10/13/17) Ezetimibe (Unverified Adverse Reaction, Unknown, "WEAK MUSCLES", 10/13/17) Physical Exam Vital Signs Date Time Temp Pulse Resp B/P (MAP) Pulse Ox O2 Delivery O2 Flow Rate FiO2 10/19/17 17:30 36.9 86 20 153/89 96 10/19/17 17:30 91 20 153/89 96 Room Air 10/19/17 17:00 37.2 86 20 145/87 96 10/19/17 16:00 91 20 156/76 95 Room Air 10/19/17 16:00 36.9 91 20 156/76 95 10/19/17 15:40 36.9 91 20 169/96 95 10/19/17 15:09 36.9 92 18 162/86 97 10/19/17 14:58 36.6 88 18 140/96 98 10/19/17 14:53 36.7 88 20 163/85 98 10/19/17 13:58 92 16 144/79 96 Room Air 10/19/17 12:25 93 10/19/17 12:09 98 16 135/76 95 Room Air 10/19/17 10:03 36.8 103 20 125/70 94 Room Air Physical Exam Physical Exam GENERAL: She is oriented to person, place, and time. She appears well- developed and well-nourished. She does not appear distressed. ____ HENT: Exam performed. Head: Normocephalic and atraumatic. Right Ear: External ear normal. No mastoid tenderness. Left Ear: External ear normal. No mastoid tenderness. Mouth/Throat: The oropharynx is clear and moist. No trismus in the jaw. No dental abscesses or uvula swelling. No oropharyngeal exudate or tonsillar abscesses. ____ EYES: Conjunctivae and EOM are normal. Pupils are equal, round, and reactive to light. Right eye exhibits no discharge. Left eye exhibits no discharge. Scleral icterus present. ____ NECK: Normal range of motion. Neck supple. No JVD present. No spinous process tenderness present. No carotid bruit present. No rigidity. No tracheal deviation and normal range of motion present. No Brudzinski's sign and no Kernig 's sign noted. ____ CV: Normal rate, regular rhythm, normal heart sounds and intact distal pulses. There is no peripheral edema. Palpable radial pulses bue. ____ PULM/CHEST: Rales on the right side. No respiratory distress. No stridor. She has no wheezes. Chest Wall: She exhibits no tenderness. ____ ABD: Bowel sounds are normal. Distended, but non-tender. No fluid wave. No mass is present. There is no tenderness. There is no rebound, no guarding, no Anne' s sign and no tenderness at McBurney's point. Rovsig negative no fluid wave. __ MUSC/SKEL: Normal range of motion. There is no peripheral edema, tenderness or deformity. LYMPH: No cervical adenopathy. ____ NEURO: She is alert and oriented to person, place, and time. She has normal strength. No cranial nerve deficit or sensory deficit. Coordination and gait normal. GCS eye subscore is 4. GCS verbal subscore is 5. GCS motor subscore is 6. Cerebellar tests wnl. ____ SKIN: Skin is warm and dry. She is not diaphoretic. ____ PSYCH: She has a normal mood and affect. Her behavior is normal. Judgment and thought content normal. ____ Medical Decision & Procedures ER Provider Diagnostic Interpretation: Radiology results as stated below per my review and radiologist interpretation: CHEST 2 VIEWS ROUTINE FINDINGS: Atherosclerosis of the aortic arch. Cardiac silhouette normal in size. Minimal vague opacities at the lung bases greater on the right. These have not significantly changed since prior. No new focal opacity. No large effusion or pneumothorax. Osseous structures normal. Upper abdomen normal. IMPRESSION: 1. Persistent bibasilar opacities greater on the right. Aspiration or infection are difficult to exclude. Alternatively, this may represent atelectasis. Cross-sectional imaging could be considered as clinically indicated. Electronically signed by: Shreyas Augustine M.D. 10/19/2017 12:20 PM ABD/PELVIS ORAL CONT ONLY FINDINGS: [employer] topogram: Unremarkable. Lung bases: Dependent reticular and solid consolidation in the lower lobes, right greater than left. Associated bronchial wall thickening and subsegmental bronchial debris. Normal heart size. Coronary artery and mitral annular calcification. The intraventricular blood pool is less dense and adjacent myocardium suggesting anemia. Trace right and small left pleural effusions. No pericardial effusion. Liver: Normal morphology. Normal density. Focal fatty deposition may be present at the inferior right hepatic lobe. Biliary: No gross biliary ductal dilatation allowing for noncontrast technique. Gallbladder contains gallstones. Pancreas: Mild parenchymal atrophy. Spleen: Normal. Adrenal glands: Normal noncontrast appearance. The spleen is top normal in size measuring 12.9 cm in sagittal dimension. Kidneys and ureters: Mild bilateral LE calyectasis and significant perinephric and periureteral fat stranding. The ureters are rather poorly delineated in their mid to distal courses. No nephrolithiasis. No ureteral calculi. Bladder: The configuration of the bladder suggests pelvic ligamentous laxity. No bladder calculi or wall thickening is apparent. Pelvic organs: Normal noncontrast appearance. Bowel: Mild perirectal fat infiltration. Significant thickening of the mesorectal fascia (for in-stent series 3 image 362). Diverticulosis of the distal sigmoid colon. No bowel obstruction. No pericolonic or perienteric inflammatory change. The appendix is normal. Peritoneal cavity: No free fluid or intraperitoneal gas. Presacral fluid or fascial thickening. Lymph nodes: Multiple enlarged lymph nodes in the upper abdomen and small bowel mesentery. These measure up to 19 mm in the short axis (series 3 image 283). Mild surrounding fat stranding in the upper abdomen and root of the small bowel mesentery. No significantly enlarged pelvic lymph nodes. Vasculature: Atherosclerosis of the normal caliber abdominal aorta. Abdominal wall: Normal. Musculoskeletal: Degenerative changes of the spine. IMPRESSION: 1. Enlarged lymph nodes in the upper abdomen and small bowel mesentery, which are suspicious for lymphoproliferative disease given the clinical history. Surrounding inflammatory change could represent posttreatment changes in the appropriate clinical setting. 2. Borderline splenomegaly. 3. Significant inflammatory change surrounding the rectum with fascial thickening in the pelvis. This is of uncertain etiology. Correlate with a history of pelvic radiation, which can cause these findings. Alternatively, an infectious proctitis could be considered. 4. Diverticulosis. 5. Bibasilar changes in the lungs suggest chronic aspiration. 6. Anemia. 7. Trace right and small left pleural effusions. Electronically signed by: Shreyas Augustine M.D. 10/19/2017 3:44 PM (CHEST) THORAX WITHOUT FINDINGS: The central airways are patent. No pleural effusions. No pneumothorax. There is a 6 mm nodule within the left lower lobe on image 160. This is not significantly changed. There is also a stable 5 mm nodule within the right middle lobe on image 186. Interval progression of the interstitial thickening and consolidation within the bilateral lower lobes posteriorly. Therefore, this likely represents a pneumonia. Trace bilateral pleural effusions. Biapical pleural-parenchymal densities persist. This favors chronic change. Partially visualized spleen remains enlarged. Increase in size in the mediastinal lymph nodes with the dominant right peritracheal lymph node measuring 2.6 x 2.0 cm. The heart is normal in size. Right inguinal lymph nodes have also increased in size. For comparative purposes a 9 mm right axillary lymph node previously measured 6 mm. Normal caliber thoracic aorta. Anemia. IMPRESSION: 1. Progressive consolidation within the bilateral lower lobes posteriorly. This likely represents a pneumonia. 2. Trace bilateral pleural effusions. 3. Progressive mediastinal and right axillary lymphadenopathy consistent with the patient's history of lymphoma. 4. There are 2 stable subcentimeter pulmonary nodules with the largest in the left lower lobe measuring 6 mm. Continued follow-up is recommended. 5. Splenomegaly. Electronically signed by: Jordon Bell M.D. 10/19/2017 5:16 PM Laboratory Results 10/19/17 11:34 Red Blood Count 2.48, Mean Corpuscular Volume 88.7, Mean Corpuscular Hemoglobin 30.6, Mean Corpuscular Hemoglobin Concent 34.5 10/19/17 11:34 Test 10/19/17 11:34 10/19/17 11:37 10/19/17 12:25 White Blood Count 2.45 K/uL (4.8-10.8) Red Blood Count 2.48 M/uL (4.2-5.4) Hemoglobin 7.6 g/dL (12.0-16.0) Hematocrit 22.0 % (37-47) Mean Corpuscular Volume 88.7 fL (80-100) Mean Corpuscular Hemoglobin 30.6 pg (25-34) Mean Corpuscular Hemoglobin Concent 34.5 g/dl (32-36) Platelet Count 14 K/uL (130-400) RDW Standard Deviation 55.5 fL (36.4-46.3) RDW Coefficient of Variation 18.0 % (11.5-14.5) Nucleated RBC Absolute Count (auto) 0.21 K/uL (0-0) Neutrophils % (Manual) 3.5 % Lymphocytes % (Manual) 60.2 % Basophils % (Manual) 0.9 % Blast Cells % 35.4 % Nucleated Red Blood Cells % 8.6 % Neutrophils # (Manual) 0.09 K/uL (1.4-6.5) Total Absolute Neutrophils 0.09 K/uL (1.4-6.5) Lymphocytes # (Manual) 1.47 K/uL (1.2-3.4) Total Absolute Lymphocytes 1.47 K/uL (1.2-3.4) Basophils # (Manual) 0.02 K/uL (0-0.2) Blast Cells # 0.87 K/uL (0-0) Platelet Estimate SIGNIFIC DECREASED Red Blood Cell Morphology Unremarkable Prothrombin Time 11.0 SECONDS (9.0-12.0) Prothromb Time International Ratio 1.0 (0.9-1.1) Activated Partial Thromboplast Time 26.1 SECONDS (21.0-31.0) Partial Thromboplastin Ratio 1.0 Anion Gap 6.0 mmol/L (3-11) Estimated GFR () 71.4 Estimated GFR (Non- 61.6 BUN/Creatinine Ratio 15.1 (10-20) Calcium Level 8.8 mg/dl (8.5-10.1) Total Bilirubin 0.8 mg/dl (0.2-1) Direct Bilirubin 0.3 mg/dl (0-0.2) Aspartate Amino Transf (AST/SGOT) 19 U/L (15-37) Alanine Aminotransferase (ALT/SGPT) 14 U/L (12-78) Alkaline Phosphatase 56 U/L (45-117) Troponin I < 0.015 ng/ml (0-0.045) Pro-B-Type Natriuretic Peptide 1145 pg/ml (0-1800) Total Protein 7.0 gm/dl (6.4-8.2) Albumin 3.3 gm/dl (3.4-5.0) Lipase 111 U/L (73-393) Bedside Lactic Acid Venous 0.81 mmol/L (0.90-1.70) Urine Color YELLOW Urine Appearance CLEAR (CLEAR) Urine pH 8.0 (4.5-7.5) Urine Specific Parker 1.011 (1.000-1.030) Urine Protein NEG (NEG) Urine Glucose (UA) NEG (NEG) Urine Ketones NEG (NEG) Urine Occult Blood NEG (NEG) Urine Nitrite NEG (NEG) Urine Bilirubin NEG (NEG) Urine Urobilinogen NEG (NEG) Urine Leukocyte Esterase NEG (NEG) Laboratory results reviewed by me Medications Administered Medications (Trade) Dose Ordered Sig/Alonso Route Start Time Stop Time Status Last Admin Dose Admin Sodium Chloride 1,000 ml @ 125 mls/hr Q8H STAT IV 10/19/17 11:52 10/19/17 19:51 10/19/17 12:00 125 MLS/HR ECG Per My Interpretation Indication: weakness Rate (beats per minute): 93 Rhythm: sinus rhythm Findings: other (TN, QRS, and QTC intervals within normal limits. No ST elevation or depression.) ED Course 1014: The patient was evaluated in room A4B. A complete history and physical exam was performed. Bedside ultrasound showed no drainable fluid collection of ascites in the abdomen. 1152: Ordered Sodium Chloride 1000 ml @ 125 mls/hr IV. 1219: Discussed the patient's case with Dr. Ortega. She would like CT abdomen with oral contrast, and CT thorax without contrast. I updated her on the patient 's laboratory results. Dr. Ortega recommends giving the patient packed RBC's. 1228: Ordered Morphine Sulfate 2 mg IV. 1655: The patient's chest CT shows pneumonia. She will be treated with Zosyn IV for HCAP, will hold treatment with Vanco due to patient's MRSA screen recently being negative.. Her blood transfusion with continue. Discuss[facility] the [facility] She has agreed to evaluate the patient for further management. 1723: Ordered Zosyn 4.5 gm IV. Medical Decision Discussed the patient's case with Dr. Ortega. She would like CT abdomen with oral contrast, and CT thorax without contrast. I updated her on the patient's laboratory results. Dr. Ortega recommends giving the patient packed RBC's. The patient's chest CT shows pneumonia. She will be treated with Zosyn IV. Her blood transfusion with continue. Discussed the patient's case with Elizabeth Borrero PA-C of the [facility] Service. She has agreed to evaluate the patient for further management. Medication Reconcilliation Current Medication List: was personally reviewed by me Blood Pressure Screening Patient's blood pressure: Normal blood pressure Blood pressure disposition: Did not require urgent referral Consults Time Called: 1215 Consulting Physician: Dr. Ortega - Oncology Returned Call: 1219 Discussed the patient's case with Dr. Ortega. She would like CT abdomen with oral contrast, and CT thorax without contrast. I updated her on the patient's laboratory results. Dr. Ortega recommends giving the patient packed RBC's. Additional Consults: Time Called: 1650 Consulted Physician: Elizabeth Borrero PA-C of the [facility] Service Returned Call: [phone] Additional Comments: Discussed the patient's case. The patient will be evaluated for further treatment and disposition. Impression Primary Impression: HCAP (healthcare-associated pneumonia) Additional Impression: Anemia Critical Care I have personally spent greater than 62 minutes of critical care time in the direct management of this patient. This includes bedside care, interpretation of diagnostic studies, and testing, discussion with consultants, patient, and family members, and other required patient management activities. This 62 minutes is in excess of all separately billable procedures. Scribe Attestation The scribe's documentation has been prepared under my direction and personally reviewed by me in its entirety. I confirm that the note above accurately reflects all work, treatment, procedures, and medical decision making performed by me. The chart was completed utilizing [employer] Speech voice recognition software. Grammatical errors, random word insertions, pronoun errors, and incomplete sentences are an occasional consequence of this system due to software limitations, ambient noise, and hardware issues. Any formal questions or concerns about the content, text, or information contained within the body of this dictation should be directly addressed to the physician for clarification. Departure Information Dispostion Being Evaluated By Hospitalist Referrals Breanna Ochoa DO (PCP) Patient Instructions My [facility] Problem Qualifiers Additional Impression: Anemia Anemia type: unspecified type Qualified Codes: D64.9 - Anemia, unspecified
[2017-10-19] MEDS ORDERED: ACETAMINOPHEN 325 MG TAB PO PRN (17:45)
[2017-10-19] MEDS ORDERED: ONDANSETRON INJ 2 MG/ML 2 ML VIAL IV PRN (17:45)
[2017-10-19] MEDS ORDERED: CONSULT PHARMACY STA (17:46)
[2017-10-19] MEDS ORDERED: LEVO1TAB34 PO (17:52)
[2017-10-19] MEDS ORDERED: MISCCAP80 PO (17:52)
[2017-10-19] MEDS ORDERED: PATIENT'S HEIGHT AND/OR WEIGHT NEEDED SCH ×2 (19:00→19:45)
[2017-10-19] MEDS ORDERED: PIPERACILL/TAZOBAC CONSULT ACTIVE PRN (19:30)
--- NOTE | 2017-10-19 19:53 | History and Physical ---
History & Physical Date & Time of Service: October 19, 2017 ~ 17:15 Chief Complaint: Weakness, Cough Primary Care Physician: Breanna Ochoa DO History of Present Illness 87-year-old female who presents the ED with weakness and cough. Patient has history of AML and MDS. She was recently admitted to [facility] 10/08-10/12 for pneumonia. She was initially treated with Vanco and cefepime and was discharged on Augmentin. 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 She received PRBC and platelet transfusion during her admission. Since discharge, she has received 2 platelet transfusions. Patient was seen by PCP for hospital follow-up on 10/17. She had reported worsening cough and chest x-ray was obtained that showed worsening pneumonia. Patient was placed on Levaquin. She reports cough has continued to get worse. It is nonproductive. No fevers or chills. She denies shortness of breath. Since her recent discharge, patient reports increasing abdominal distention and fluid retention. Her appetite has been poor over the past couple of days. No nausea, vomiting , diarrhea, constipation. She denies chest pain and shortness of breath. No lightheadedness, dizziness, diaphoresis, or syncopal events. She has felt generally weak. No urinary symptoms. Of note, patient reports she has trouble swallowing at times and will cough and choke on food and liquids. In the ED, patient's CT shows progressive bilateral lower lobe pneumonia. She is afebrile , labs showed pancytopenia, and mild hyponatremia at 129. She was transfused with 1 unit PRBC and given IVF and IV Zosyn. 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 (2) Breast cancer Permanent Comment: s/p chemo, surgery, and radiation Status: Resolved (3) HLD (hyperlipidemia) Status: Chronic (4) MDS (myelodysplastic syndrome) Status: Chronic (5) Meniere disease Status: Chronic (6) Pancytopenia Status: Chronic Surgical Problems: (1) H/O dilation and curettage Status: Chronic (2) History of cataract surgery Status: Chronic Family History Noncontributory secondary to patient's advanced age Social History Smoking Status: Never Smoker Alcohol Use: none Immunizations History of Influenza Vaccine: Yes Influenza Vaccine Date: Mar 10, 2017 History of Tetanus Vaccine?: Yes Tetanus Immunization Date: Aug 30, 2011 History of Pneumococcal: Yes Pneumococcal Date: October 17, 2016 Allergies Coded Allergies: Alcohol (Verified Allergy, Severe, diarrhea, bloating, bowel irritation, swelling, 10/13/17) Paclitaxel (Verified Allergy, Severe, diarrhea, bowel irritation, swelling , 10/13/17) Pneumococcal Vaccine (Verified Allergy, Severe, swelling, pain, 10/13/17) Polyoxyethylated [place] Oil (Verified Allergy, Severe, bowel irritation, swelling, diarrhea, 10/13/17) Sulfamethoxazole w/Trimethoprim (Verified Adverse Reaction, Severe, unable to recall per patient, 10/13/17) Ezetimibe (Unverified Adverse Reaction, Unknown, "WEAK MUSCLES", 10/13/17) Home Medications Scheduled Atorvastatin (Lipitor), 10 MG PO DAILY Epinephrine (Epipen), 0.3 MG IM UD Ergocalciferol (Vitamin D 97230 Unit), 50,000 UNIT PO WK Levofloxacin (Levaquin), 1 TAB PO DAILY Magnesium Chloride-Calcium Car (Nu-Mag 71.5-119 mg), 1 TAB PO DAILY Paroxetine Hcl (Paxil), 10 MG PO DAILY Probiotic Product (Probiotic), 1 CAP PO TIDM Review of Systems ROS per HPI, all other systems reviewed and negative Physical Exam Vital Signs Date Time Temp Pulse Resp B/P (MAP) Pulse Ox O2 Delivery O2 Flow Rate FiO2 10/19/17 19:07 90 18 150/89 94 10/19/17 19:00 90 18 150/89 94 Room Air 10/19/17 18:25 Room Air 10/19/17 18:04 93 10/19/17 17:30 36.9 86 20 153/89 96 10/19/17 17:30 91 20 153/89 96 Room Air 10/19/17 17:00 37.2 86 20 145/87 96 10/19/17 16:00 91 20 156/76 95 Room Air 10/19/17 16:00 36.9 91 20 156/76 95 10/19/17 15:40 36.9 91 20 169/96 95 10/19/17 15:09 36.9 92 18 162/86 97 10/19/17 14:58 36.6 88 18 140/96 98 10/19/17 14:53 36.7 88 20 163/85 98 10/19/17 13:58 92 16 144/79 96 Room Air 10/19/17 12:25 93 10/19/17 12:09 98 16 135/76 95 Room Air 10/19/17 10:03 36.8 103 20 125/70 94 Room Air General Appearance: WD/WN, no apparent distress Head: normocephalic, atraumatic Eyes: normal inspection, EOMI, sclerae normal ENT: hearing grossly normal, + pertinent finding (Mucous members moist) Neck: supple, no JVD, trachea midline Respiratory/Chest: no respiratory distress, + crackles (Left base, right mid and base) Cardiovascular: regular rate, rhythm, no edema, normal peripheral pulses Abdomen/GI: normal bowel sounds, non tender, soft, no organomegaly, + distended Extremities/Musculoskelatal: normal inspection, no calf tenderness, normal capillary refill Neurologic/Psych: no motor/sensory deficits, alert, normal mood/affect, oriented x 3 Skin: normal color, warm/dry Diagnostics Laboratory Results Results Past 24 Hours Test 10/19/17 11:34 10/19/17 11:37 10/19/17 12:25 Range/Units White Blood Count 2.45 4.8-10.8 K/uL Red Blood Count 2.48 4.2-5.4 M/uL Hemoglobin 7.6 12.0-16.0 g/dL Hematocrit 22.0 37-47 % Mean Corpuscular Volume 88.7 80-100 fL Mean Corpuscular Hemoglobin 30.6 25-34 pg Mean Corpuscular Hemoglobin Concent 34.5 32-36 g/dl Platelet Count 14 130-400 K/uL RDW Standard Deviation 55.5 36.4-46.3 fL RDW Coefficient of Variation 18.0 11.5-14.5 % Nucleated RBC Absolute Count (auto) 0.21 0-0 K/uL Neutrophils % (Manual) 3.5 % Lymphocytes % (Manual) 60.2 % Basophils % (Manual) 0.9 % Blast Cells % 35.4 % Nucleated Red Blood Cells % 8.6 % Neutrophils # (Manual) 0.09 1.4-6.5 K/uL Total Absolute Neutrophils 0.09 1.4-6.5 K/uL Lymphocytes # (Manual) 1.47 1.2-3.4 K/uL Total Absolute Lymphocytes 1.47 1.2-3.4 K/uL Basophils # (Manual) 0.02 0-0.2 K/uL Blast Cells # 0.87 0-0 K/uL Platelet Estimate SIGNIFIC DECREASED Red Blood Cell Morphology Unremarkable Prothrombin Time 11.0 9.0-12.0 SECONDS Prothromb Time International Ratio 1.0 0.9-1.1 Activated Partial Thromboplast Time 26.1 21.0-31.0 SECONDS Partial Thromboplastin Ratio 1.0 Sodium Level 129 136-145 mmol/L Potassium Level 4.1 3.5-5.1 mmol/L Chloride Level 97 98-107 mmol/L Carbon Dioxide Level 26 21-32 mmol/L Anion Gap 6.0 3-11 mmol/L Blood Urea Nitrogen 13 7-18 mg/dl Creatinine 0.86 0.60-1.20 mg/dl Estimated GFR () 71.4 Estimated GFR (Non- 61.6 BUN/Creatinine Ratio 15.1 10-20 Random Glucose 105 70-99 mg/dl Calcium Level 8.8 8.5-10.1 mg/dl Total Bilirubin 0.8 0.2-1 mg/dl Direct Bilirubin 0.3 0-0.2 mg/dl Aspartate Amino Transf (AST/SGOT) 19 15-37 U/L Alanine Aminotransferase (ALT/SGPT) 14 12-78 U/L Alkaline Phosphatase 56 45-117 U/L Troponin I < 0.015 0-0.045 ng/ml Pro-B-Type Natriuretic Peptide 1145 0-1800 pg/ml Total Protein 7.0 6.4-8.2 gm/dl Albumin 3.3 3.4-5.0 gm/dl Lipase 111 73-393 U/L Bedside Lactic Acid Venous 0.81 0.90-1.70 mmol/L Urine Color YELLOW Urine Appearance CLEAR CLEAR Urine pH 8.0 4.5-7.5 Urine Specific [place] 1.011 1.000-1.030 Urine Protein NEG NEG Urine Glucose (UA) NEG NEG Urine Ketones NEG NEG Urine Occult Blood NEG NEG Urine Nitrite NEG NEG Urine Bilirubin NEG NEG Urine Urobilinogen NEG NEG Urine Leukocyte Esterase NEG NEG Microbiology Results 10/19/17 Blood Culture, Received Pending 10/19/17 Blood Culture, Received Pending Diagnostic Radiology CHEST CT IMPRESSION: 1. Progressive consolidation within the bilateral lower lobes posteriorly. This likely represents a pneumonia. 2. Trace bilateral pleural effusions. 3. Progressive mediastinal and right axillary lymphadenopathy consistent with the patient's history of lymphoma. 4. There are 2 stable subcentimeter pulmonary nodules with the largest in the left lower lobe measuring 6 mm. Continued follow-up is recommended. 5. Splenomegaly. CT ABD/PELVIS IMPRESSION: 1. Enlarged lymph nodes in the upper abdomen and small bowel mesentery, which are suspicious for lymphoproliferative disease given the clinical history. Surrounding inflammatory change could represent posttreatment changes in the appropriate clinical setting. 2. Borderline splenomegaly. 3. Significant inflammatory change surrounding the rectum with fascial thickening in the pelvis. This is of uncertain etiology. Correlate with a history of pelvic radiation, which can cause these findings. Alternatively, an infectious proctitis could be considered. 4. Diverticulosis. 5. Bibasilar changes in the lungs suggest chronic aspiration. 6. Anemia. 7. Trace right and small left pleural effusions. CXR IMPRESSION: 1. Persistent bibasilar opacities greater on the right. Aspiration or infection are difficult to exclude. Alternatively, this may represent atelectasis. Cross-sectional imaging could be considered as clinically indicated. Impression Assessment and Plan RECURRENT PNEUMONIA, LIKELY ASPIRATION -Admit to [facility] -Patient presenting with increasing generalized weakness and nonproductive cough , recently admitted to [facility] 10/08-10/12 for pneumonia -received IV antibiotics and then discharged on Augmentin, seen by PCP 2 days ago which chest x-ray showed worsening of the pneumonia and she was placed on Levaquin -In the ED, CT chest shows progressive bibasilar pneumonia -Currently afebrile, saturating well on room air -Question aspiration since patient reports cough and choking with food and liquids -MRSA nasal swab during recent admission was negative -S/P Zosyn in the ED, will continue with and recheck MRSA nasal swab and add Vanco if positive -Does not appear septic -Aspiration precautions and speech evaluation PANCYTOPENIA/MDS/AML -Transfusion dependent -Patient has declined other treatments -S/P 1 unit PRBC in the ED -Monitor CBC daily, provide transfusions as needed -Otology/oncology consult, patient follows with Dr. Ortega HYPONATREMIA -Mild, Na+ 129 -Received IVF in the ED -Baseline sodium runs in the low 130s -Follow sodium levels DYSLIPIDEMIA -Continue statin DVT PROPHYLAXIS -SCDs due to pancytopenia CODE STATUS -Patient is a DNR as per my discussion with her and her daughter who is the bedside. DISPOSITION -In my clinical judgment this beneficiary meets acute admission criteria, established by [facility], that includes being hospitalized through two midnights. Attending addendum 87-year-old female with history of AML, presented with weakness fatigue, cough Reports of recurrent aspiration CT chest shows progressive bilateral pneumonia Empiric antibiotic with Zosyn Speech evaluation requested Pancytopenia/anemia Due to AML Ordered for 1 unit PRBC to be transferred Hematology oncology consulted DNR/DNI Sally Little MD Advanced Directives Existing Living Will: Yes Existing Power of Reclamation Worker: Yes Resuscitation Status VTE Prophylaxis Will order VTE Prophylaxis: Yes
[2017-10-19] MEDS: PIPERACILL/TAZOBAC IV 3.375 GM in D5W 100ML IV SCH (23:34)
[2017-10-20] VITALS (9 sets, daily range): BP systolic 121–149; BP diastolic 74–82; PULSE 89–99; TEMP 36.4–37.2; O2SAT 93–96
[2017-10-20] MEDS: PIPERACILL/TAZOBAC IV 3.375 GM in D5W 100ML IV SCH (06:34)
[2017-10-20 07:41] LABS: HEMATOCRIT 25.9 % (37-47); HEMOGLOBIN 8.9 g/dL (12.0-16.0); MEAN CELL VOLUME 86.9 fL (80-100); MEAN CORPUSCULAR HEMOGLOBIN 29.9 pg (25-34); MEAN CORPUSCULAR HGB CONC 34.4 g/dl (32-36); RED CELL DISTRIBUTION WIDTH SD 54.5 fL (36.4-46.3); WHITE BLOOD COUNT 3.51 K/uL (4.8-10.8)
[2017-10-20 07:51] LABS: NUCLEATED RED BLOOD CELL ABS 0.23 K/uL (0-0); PLATELET COUNT 10 K/uL (130-400)
[2017-10-20 07:57] LABS: CALCIUM 8.5 mg/dl (8.5-10.1); CREATININE 0.99 mg/dl (0.60-1.20); POTASSIUM 4.1 mmol/L (3.5-5.1)
[2017-10-20] MEDS ORDERED: ATORVASTATIN 10 MG TAB PO SCH (08:00)
[2017-10-20] MEDS ORDERED: PAROXETINE 20 MG TAB PO SCH ×2 (08:00→21:00)
[2017-10-20] MEDS ORDERED: NURSING DECISION MEDICATION ORDER SCH (10:15)
--- NOTE | 2017-10-20 10:56 | ECHOCARDIOGRAM REPORT ---
*NOTICE TO RECEIVING LIBERTARIAN AGENCY This information is strictly Confidential and protected under [place] law. [place] law prohibits you from making any further disclosure of this information unless further disclosure is expressly permitted by the written consent of the person to whom it pertains or is authorized by law. A general authorization for the release of medical or other information is not sufficient for this purpose. Hospital accepts no responsibility if the information is made available to any other person, INCLUDING THE PATIENT. Interpretation Summary * Name: MAICOL ESCOBAR Study Date: 10/20/2017 06:41 AM BP: 149/79 mmHg * Patient Location: [id number].4E\[id number]\E415\S\1 HR: 93 * : 1930 (M/d/yyyy) Gender: Female Height: 64 in * Age: 87 yrs Ethnicity: CA Weight: 147 lb * Ordering Physician: Terri Courtney * Referring Physician: Self, Referred * Performed By: Suzan Finley RCS * * Reason For Study: EDMA * BSA: 1.7 m2 * The study was technically limited. * -- Conclusions -- * The study was technically limited. * The left ventricular cavity is small. * There is moderate concentric left ventricular hypertrophy. * Ejection Fraction = 65-70%. * The right ventricular systolic function is normal. * The left atrial size is normal. * Right atrial size is normal. * Grade I diastolic dysfunction, (abnormal relaxation pattern). * No significant valvular pathology. Procedure Details * A complete two-dimensional transthoracic echocardiogram was performed (2D, M-mode, Doppler and color flow Doppler). Left Ventricle * The left ventricular cavity is small. * There is moderate concentric left ventricular hypertrophy. * Ejection Fraction = 65-70%. * The left ventricular wall motion is normal at rest. Right Ventricle * The right ventricle is normal size. * The right ventricular systolic function is normal. Atria * The left atrial size is normal. * Right atrial size is normal. * No ASD detected; PFO is not assessed. Mitral Valve * There is moderate mitral annular calcification. * There is trace mitral regurgitation. Tricuspid Valve * The tricuspid valve anatomy is normal. * Significant tricuspid regurgitation is absent. Aortic Valve * The aortic valve is not well visualized. * No hemodynamically significant valvular aortic stenosis. * There is no significant aortic regurgitation. Pulmonic Valve * The pulmonic valve is not well visualized. Great Vessels * The aortic root and proximal ascending aorta are normal sized. Pericardium/Pleural * There is no pericardial effusion. Left Ventricular Diastolic Function * Grade I diastolic dysfunction, (abnormal relaxation pattern). MMode 2D Measurements and Calculations IVSd 0.99 cm IVSs 1.2 cm LVIDd 4.3 cm LVIDs 2.7 cm LVPWd 0.99 cm LVPWs 1.2 cm IVS/LVPW 0.99 FS 36.9 % EDV(Teich) 81.3 ml ESV(Teich) 26.8 ml EF(Teich) 67.0 % EDV(cubed) 77.3 ml ESV(cubed) 19.5 ml EF(cubed) 74.8 % % IVS thick 23.2 % % LVPW thick 23.7 % LV mass(C)d 138.9 grams LV mass(C)dI 80.9 grams/m\S\2 LV mass(C)s 97.3 grams LV mass(C)sI 56.7 grams/m\S\2 CO(Teich) 4.9 l/min CI(Teich) 2.8 l/min/m\S\2 SV(Teich) 54.5 ml SI(Teich) 31.8 ml/m\S\2 CO(cubed) 5.2 l/min CI(cubed) 3.0 l/min/m\S\2 SV(cubed) 57.9 ml SI(cubed) 33.7 ml/m\S\2 Ao root diam 3.0 cm Ao root area 7.2 cm\S\2 ACS 1.7 cm LA dimension 3.0 cm LA/Ao 1.0 LVAd ap4 22.5 cm\S\2 LVLd ap4 7.1 cm EDV(MOD-sp4) 57.8 ml LVAs ap4 12.2 cm\S\2 LVLs ap4 6.2 cm ESV(MOD-sp4) 20.6 ml EF(MOD-sp4) 64.4 % LVAd ap2 22.6 cm\S\2 LVLd ap2 6.9 cm EDV(MOD-sp2) 61.9 ml LVAs ap2 12.8 cm\S\2 LVLs ap2 6.2 cm ESV(MOD-sp2) 21.9 ml EF(MOD-sp2) 64.6 % CO(MOD-sp4) 3.3 l/min CI(MOD-sp4) 1.9 l/min/m\S\2 SV(MOD-sp4) 37.2 ml SI(MOD-sp4) 21.7 ml/m\S\2 CO(MOD-sp2) 3.6 l/min CI(MOD-sp2) 2.1 l/min/m\S\2 SV(MOD-sp2) 40.0 ml SI(MOD-sp2) 23.3 ml/m\S\2 Doppler Measurements and Calculations MV E max michael 97.9 cm/sec Ao V2 max 104.2 cm/sec Ao max PG 4.3 mmHg Ao max PG (full) 0.27 mmHg LV V1 max PG 4.1 mmHg LV V1 max 101.0 cm/sec PA V2 max 107.6 cm/sec PA max PG 4.8 mmHg TR max michael 270.1 cm/sec
[2017-10-20] MEDS ORDERED: LEVOFLOXACIN 750MG / D5W IV SCH (12:00)
--- NOTE | 2017-10-20 13:32 | Medical Consult ---
Consultation Date of Consultation: October 20, 2017. Attending Physician: Tereza Medina M.D. Reason for Consultation: Goals of care in AML History of Present Illness Mrs. Mendez is an 87 yo CF known to the consulting Hematology service for AML. She is admitted currently for pancytopenia related to AML as well as recurrent progressive pneumonia. She received 1 unit PRBC since admission and she is getting PLT today for PLTs at 10K. Her admission CT scans show progressive pneumonia related to aspiration likely. She was placed on Levaquin as an outpatient for progressive pneumonia seen on chest x ray prior to admission. She has scattered adenopathy and enlarging spleen attributed to leukemia process. Additional history obtained at bedside with daughter and son. She is currently requiring platelets daily and PRBC about once a week. She does live at home with her daughter who cares for her. She does take care of getting up and around on her own. She states her cough is improving since she is on IV antibiotics. She denies dyspnea. She has not had fever. She states she ate breakfast today, no nausea. She had a loose BM this morning. She states her abdomen feels full and uncomfortable. She denies bowel, bladder or mucosal bleeding. Past Medical/Surgical History Medical Problems: (1) Pancytopenia Status: Acute Family History Cancer Social History Smoking Status: Never Smoker Alcohol Use: none Allergies Coded Allergies: Alcohol (Verified Allergy, Severe, diarrhea, bloating, bowel irritation, swelling, 10/13/17) Paclitaxel (Verified Allergy, Severe, diarrhea, bowel irritation, swelling , 10/13/17) Pneumococcal Vaccine (Verified Allergy, Severe, swelling, pain, 10/13/17) Polyoxyethylated [place] Oil (Verified Allergy, Severe, bowel irritation, swelling, diarrhea, 10/13/17) Sulfamethoxazole w/Trimethoprim (Verified Adverse Reaction, Severe, unable to recall per patient, 10/13/17) Ezetimibe (Unverified Adverse Reaction, Unknown, "WEAK MUSCLES", 10/13/17) Current Inpatient Medications Current Inpatient Medications Medications (Trade) Dose Ordered Sig/Alonso Route Start Time Stop Time Status Last Admin Dose Admin Acetaminophen (Tylenol Tab) 650 mg Q4H PRN PO 10/19/17 17:45 11/18/17 17:44 Ondansetron HCl (Zofran Inj) 4 mg Q6H PRN IV 10/19/17 17:45 11/18/17 17:44 Atorvastatin Calcium (Lipitor Tab) 10 mg DAILY PO 10/20/17 08:00 11/19/17 08:59 10/20/17 09:04 10 MG Ergocalciferol (Vitamin D Cap) 50,000 interunit Sa@0900 PO 10/21/17 09:00 11/20/17 08:59 Miscellaneous Information (Order Awaiting Action) 1 ea QS N/A 10/20/17 00:00 11/19/17 00:00 Miscellaneous Information (Order Awaiting Action) 1 ea QS N/A 10/20/17 00:00 11/19/17 00:00 Paroxetine HCl (pAXil TAB) 10 mg HS PO 10/20/17 21:00 11/19/17 20:59 Levofloxacin 750 mg/Prmx 150 ml @ 100 mls/hr Q48H IV 10/20/17 12:00 10/27/17 11:59 Review of Systems Constitutional: + weakness, + fatigue, No fever, No chills ENT: + hearing loss Respiratory: + cough, No shortness of breath Cardiovascular: No edema Abdomen: + diarrhea, No pain, No nausea, No GI bleeding Genitourinary - Female: No hematuria Physical Exam Date Time Temp Pulse Resp B/P (MAP) Pulse Ox O2 Delivery O2 Flow Rate FiO2 10/20/17 12:47 36.7 92 16 124/76 10/20/17 12:21 37.2 94 18 121/74 10/20/17 12:01 36.4 89 16 124/77 10/20/17 11:36 36.8 91 18 130/79 10/20/17 09:00 Room Air 10/20/17 07:42 36.8 93 20 132/80 (97) 93 Room Air 10/20/17 05:00 36.4 92 17 149/79 (102) 96 Room Air 10/20/17 00:00 94 Room Air 10/19/17 23:37 36.8 93 20 135/74 (94) 97 Room Air 10/19/17 19:07 90 18 150/89 94 10/19/17 19:00 90 18 150/89 94 Room Air 10/19/17 18:25 Room Air 10/19/17 18:04 93 10/19/17 17:30 36.9 86 20 153/89 96 10/19/17 17:30 91 20 153/89 96 Room Air 10/19/17 17:00 37.2 86 20 145/87 96 10/19/17 16:00 91 20 156/76 95 Room Air 10/19/17 16:00 36.9 91 20 156/76 95 10/19/17 15:40 36.9 91 20 169/96 95 10/19/17 15:09 36.9 92 18 162/86 97 10/19/17 14:58 36.6 88 18 140/96 98 10/19/17 14:53 36.7 88 20 163/85 98 10/19/17 13:58 92 16 144/79 96 Room Air General Appearance: no apparent distress, + pertinent finding (chronically ill) Neck: no adenopathy Respiratory/Chest: normal breath sounds, no respiratory distress Cardiovascular: regular rate, rhythm, no edema Abdomen/GI: normal bowel sounds, + splenomegaly (tender over splenomegaly) Extremities/Musculoskelatal: no pedal edema Neurologic/Psych: alert, oriented x 3 Laboratory Results Last 24 Hours Test 10/20/17 06:36 White Blood Count 3.51 K/uL Red Blood Count 2.98 M/uL Hemoglobin 8.9 g/dL Hematocrit 25.9 % Mean Corpuscular Volume 86.9 fL Mean Corpuscular Hemoglobin 29.9 pg Mean Corpuscular Hemoglobin Concent 34.4 g/dl Platelet Count 10 K/uL RDW Standard Deviation 54.5 fL RDW Coefficient of Variation 18.0 % Nucleated RBC Absolute Count (auto) 0.23 K/uL Neutrophils % (Manual) 3.5 % Lymphocytes % (Manual) 56.1 % Basophils % (Manual) 0.9 % Metamyelocytes % 1.8 % Blast Cells % 37.7 % Nucleated Red Blood Cells % 6.4 % Neutrophils # (Manual) 0.12 K/uL Total Absolute Neutrophils 0.12 K/uL Lymphocytes # (Manual) 1.97 K/uL Total Absolute Lymphocytes 1.97 K/uL Basophils # (Manual) 0.03 K/uL Metamyelocytes # 0.06 K/uL Blast Cells # 1.32 K/uL Platelet Estimate SIGNIFIC DECREASED Tear Drop Cells 1+ Sodium Level 131 mmol/L Potassium Level 4.1 mmol/L Chloride Level 99 mmol/L Carbon Dioxide Level 25 mmol/L Anion Gap 7.0 mmol/L Blood Urea Nitrogen 12 mg/dl Creatinine 0.99 mg/dl Est Creatinine Clear Calc Drug Dose 39.1 ml/min Estimated GFR () 60.2 Estimated GFR (Non- 52.0 BUN/Creatinine Ratio 12.5 Random Glucose 100 mg/dl Calcium Level 8.5 mg/dl Assessment & Plan 1. 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 Aspiration pneumonia * Patient has AML, incurable, not on active treatment * Patient's transfusion requirements on PLTs are becoming daily * Palliative care/hospice would be most appropriate * Daughter is open to this and stopping support transfusion * If patient/family opt to continue transfusion, Dr. Ortega has recommended PRBC if Hgb < 8 and PLT < or= to 10K and or active bleeding * Dr. Ortega recommends ID consult for patient's progressive pneumonia * Patient is being evaluated with swallowing study for aspiration * Support provided to daughter Dr. Ortega is attending. please see her addendum. Attending note Discussed with Natasha Abarca PA-C and agree with her note 87 year old female admitted with AML and lymphoma admitted with fatigue, pancytopenia and pneumonia/worsening consolidation in lungs. I discussed with the patient and her family in her room. Patient was getting discharged Patient wants to go home today with her family and patient and family opting for home hospice. Her son and daughter are with her. patient and family are appreciative of her care. She received platelet transfusion today and PRBC yesterday and states felt a little more energy today They are aware of the CT scan findings of worsening lymphoma as well. She has AML with severe pancytopenia and transfusions becoming more frequent her desire is to now transition to hospice. They would like to cancel appt/labs for Monday as she is opting for hospice.
--- NOTE | 2017-10-20 16:44 | DIAGNOSTIC IMAGING REPORT ---
VIDEO SWALLOW STUDY CLINICAL HISTORY: Pneumonia. Aspiration. COMPARISON STUDY: No priors. Fluoroscopy time: 2.3 minutes. FINDINGS: Fluoroscopic guidance provided to the department of speech pathology in performing a video swallow study. The patient consumed barium-impregnated pudding, cracker with paste, nectar thick liquid, and thin barium while the swallowing mechanism was observed in real time. No penetration or aspiration was seen with any of the sampled textures. There were pharyngeal residuals. IMPRESSION: No penetration or aspiration was seen during the examination. See dedicated speech pathology report for detailed findings and recommendations. Dictated: 10/20/2017 4:32 PM Transcribed: 10/20/2017 4:44 PM [email or web address] Electronically signed by: Dayday Gonzalez M.D. 10/20/2017 5:02 PM Dictated Date/Time: 10/20/2017 4:32 PM
[2017-10-20] MEDS ORDERED: LACTOBACILLUS ACIDOPHILUS (FLORANEX) TAB PO SCH (17:00)
--- NOTE | 2017-10-20 18:25 | Progress Note ---
Internal Med Progress Note Date of Service: October 20, 2017. Provider Documentation: SUBJECTIVE: The patient was seen and examined in presence of the daughter She has acute myeloid leukemia with marrow failure She was admitted with Mary pneumonia and she has been transfusion dependent She complains to have weakness and tiredness but no other significant symptoms OBJECTIVE: Vital Signs-as noted below Exam: General-minimal distress at rest Eyes-normal ENT-normal Neck-supple Lungs-crackles bibasilarly Heart-regular Abdomen-benign, mildly distended epigastrium, nontender,bowel sounds present Extremities-trace edema bilaterally, more on the right Neuro-alert awake oriented Generally weak but no focal neuro deficit Lab data as noted below. ASSESSMENT & PLAN: PANCYTOPENIA/MDS/AML -Transfusion dependent -Patient has declined other treatments -S/P 1 unit PRBC in the ED -Otology/oncology consult, patient follows with Dr. Ortega -Discussed with the Family a\nd the Patient -No more active treatment -Discharge home with Hospice care -Appreciate Palliative care input RECURRENT PNEUMONIA, LIKELY ASPIRATION -Admit to [facility] [place] -Patient presenting with increasing generalized weakness and nonproductive cough , recently admitted to [facility] 10/08-10/12 for pneumonia -received IV antibiotics and then discharged on Augmentin, seen by PCP 2 days ago which chest x-ray showed worsening of the pneumonia and she was placed on Levaquin -In the ED, CT chest shows progressive bibasilar pneumonia -Currently afebrile, saturating well on room air -Question aspiration since patient reports cough and choking with food and liquids -MRSA nasal swab during recent admission was negative -S/P Zosyn in the ED, will continue with and recheck MRSA nasal swab and add Vanco if positive -Does not appear septic -Aspiration precautions and speech evaluation -will continue Levaquin as an OP DYSLIPIDEMIA -Continue statin DVT PROPHYLAXIS -SCDs due to pancytopenia CODE STATUS -Patient is a DNR as per my discussion with her and her daughter who is the bedside. DISPOSITION -Discharge home Has had a long discussion with the daughter about the prognosis and current management The patient was seen by palliative care provider She received 1 unit of platelet today and she does not wish any further transfusion down the line Family members and the patient wanted to go home today with transition to hospice care from tomorrow This was discussed with the patient and the daughter and the patient was discharged home in a reasonably stable condition Vital Signs: Date Time Temp Pulse Resp B/P (MAP) Pulse Ox O2 Delivery O2 Flow Rate FiO2 10/20/17 15:06 36.6 99 20 148/82 (104) 95 10/20/17 12:47 36.7 92 16 124/76 10/20/17 12:21 37.2 94 18 121/74 10/20/17 12:01 36.4 89 16 124/77 10/20/17 11:36 36.8 91 18 130/79 10/20/17 09:00 Room Air 10/20/17 07:42 36.8 93 20 132/80 (97) 93 Room Air 10/20/17 05:00 36.4 92 17 149/79 (102) 96 Room Air 10/20/17 00:00 94 Room Air 10/19/17 23:37 36.8 93 20 135/74 (94) 97 Room Air 10/19/17 19:07 90 18 150/89 94 10/19/17 19:00 90 18 150/89 94 Room Air 10/19/17 18:25 Room Air Lab Results: Results Past 24 Hours Test 10/20/17 06:36 Range/Units White Blood Count 3.51 4.8-10.8 K/uL Red Blood Count 2.98 4.2-5.4 M/uL Hemoglobin 8.9 12.0-16.0 g/dL Hematocrit 25.9 37-47 % Mean Corpuscular Volume 86.9 80-100 fL Mean Corpuscular Hemoglobin 29.9 25-34 pg Mean Corpuscular Hemoglobin Concent 34.4 32-36 g/dl Platelet Count 10 130-400 K/uL RDW Standard Deviation 54.5 36.4-46.3 fL RDW Coefficient of Variation 18.0 11.5-14.5 % Nucleated RBC Absolute Count (auto) 0.23 0-0 K/uL Neutrophils % (Manual) 3.5 % Lymphocytes % (Manual) 56.1 % Basophils % (Manual) 0.9 % Metamyelocytes % 1.8 % Blast Cells % 37.7 % Nucleated Red Blood Cells % 6.4 % Neutrophils # (Manual) 0.12 1.4-6.5 K/uL Total Absolute Neutrophils 0.12 1.4-6.5 K/uL Lymphocytes # (Manual) 1.97 1.2-3.4 K/uL Total Absolute Lymphocytes 1.97 1.2-3.4 K/uL Basophils # (Manual) 0.03 0-0.2 K/uL Metamyelocytes # 0.06 0-0 K/uL Blast Cells # 1.32 0-0 K/uL Platelet Estimate SIGNIFIC DECREASED Tear Drop Cells 1+ Sodium Level 131 136-145 mmol/L Potassium Level 4.1 3.5-5.1 mmol/L Chloride Level 99 98-107 mmol/L Carbon Dioxide Level 25 21-32 mmol/L Anion Gap 7.0 3-11 mmol/L Blood Urea Nitrogen 12 7-18 mg/dl Creatinine 0.99 0.60-1.20 mg/dl Est Creatinine Clear Calc Drug Dose 39.1 ml/min Estimated GFR () 60.2 Estimated GFR (Non- 52.0 BUN/Creatinine Ratio 12.5 10-20 Random Glucose 100 70-99 mg/dl Calcium Level 8.5 8.5-10.1 mg/dl Microbiology Results 10/19/17 MRSA DNA Surveillance Screen - Final, Complete Specimen Negative for MRSA by DNA Probe
--- NOTE | 2017-10-20 18:27 | Discharge Instructions ---
Discharge Instructions Date of Service October 20, 2017. Admission Reason for Admission: Pneumonia Discharge Discharge Diagnosis / Problem: AML-progressive,Pneumonia Discharge Goals Goal(s): Prevent Disease Progression Activity Recommendations Activity Limitations: resume your previous activity . Instructions / Follow-Up Instructions / Follow-Up Hospice care at home Current Hospital Diet Patient's current hospital diet: Regular Diet Discharge Diet Recommended Diet: Regular Diet Pending Studies Studies pending at discharge: no Medical Emergencies . Who to Call and When: Medical Emergencies: If at any time you feel your situation is an emergency, please call 911 immediately. . Non-Emergent Contact Non-Emergency issues call your: Primary Care Provider (And Hospice acre) . Past History Medical & Surgical History: (1) AML (acute myelogenous leukemia) (2) MDS (myelodysplastic syndrome) (3) Pancytopenia (4) Breast cancer (5) Meniere disease (6) HLD (hyperlipidemia) (7) H/O dilation and curettage (8) History of cataract surgery . "Provider Documentation" section prepared by Tereza Medina. .
[2017-10-20] MEDS ORDERED: MAGNESIUM OXIDE 400 MG TAB PO SCH (20:00)
--- NOTE | 2017-10-20 20:45 | Palliative Care Consultation ---
Consultation Date of Consultation: October 20, 2017. Requesting Physician: Dr Medina Attending Physician: Dr Medina Reason for Consultation: Assist with medical decision making, goals of care, patient currently is a DNR. History of Present Illness Patient seen with her daughter and son at bedside. Patient is an 87-year-old female with a history of AML/MDS who is transfusion dependent. Patient was recently hospitalized from 10/08-10/12 for PNA and admitted again on 10/17 for bilateral lower lobe pneumonia. Patient has required nearly daily platelet transfusions. Patient has also required blood transfusions. Both family and patient are coming to realize that this is continued futile treatment. Patient several times stated her wishes to return home. Patient states she is feeling well at this time but understands her condition and knows she will decline likely. Patient's daughter and son support her decision to go home. Patient would like to be discharged tonight. Patient had been referred to hospice during this hospitalization however had declined services. Patient now wishes to go home with home hospice. Daughter and son agree that they would like to take her home tonight if at all possible. Patient does not require any home equipment at this time, contacted attending physician to initiate discharge. Recontacted [facility] hospice and initiated referral. Hospice will plan to admit her from home over the weekend. Required documents and orders faxed to [facility]. Discussed with patient and family what to expect as patient continues to decline and her disease progresses as far as symptoms and how to manage any signs of bleeding. Past Medical/Surgical History Medical History: History of breast cancer, HLD, Mnire's disease, pancytopenia due to AML/MDS Surgical History: D&C, cataract Social History Smoking Status: Never Smoker History of Alcohol Use: No Housing Status: lives with family Review of Systems Constitutional: No fever, No chills Eyes: No worsening of vision ENT: No hearing loss Respiratory: No cough Cardiac: No chest pain Abdomen: + problem reported (Increased abdominal girth, felt to be secondary to splenomegaly) Musculoskeletal: No joint pain Female : No dysuria Neurologic: No memory loss Psychiatric: No depression symptoms Heme: + problem reported (Pancytopenia), No abnormal bleeding/bruising Endo: + fatigue Allergies Coded Allergies: Alcohol (Verified Allergy, Severe, diarrhea, bloating, bowel irritation, swelling, 10/13/17) Paclitaxel (Verified Allergy, Severe, diarrhea, bowel irritation, swelling , 10/13/17) Pneumococcal Vaccine (Verified Allergy, Severe, swelling, pain, 10/13/17) Polyoxyethylated [place] Oil (Verified Allergy, Severe, bowel irritation, swelling, diarrhea, 10/13/17) Sulfamethoxazole w/Trimethoprim (Verified Adverse Reaction, Severe, unable to recall per patient, 10/13/17) Ezetimibe (Unverified Adverse Reaction, Unknown, "WEAK MUSCLES", 10/13/17) Physical Exam Date Time Temp Pulse Resp B/P (MAP) Pulse Ox O2 Delivery O2 Flow Rate FiO2 10/20/17 19:09 36.6 99 20 95 Room Air 10/20/17 15:06 36.6 99 20 148/82 (104) 95 10/20/17 12:47 36.7 92 16 124/76 10/20/17 12:21 37.2 94 18 121/74 10/20/17 12:01 36.4 89 16 124/77 10/20/17 11:36 36.8 91 18 130/79 10/20/17 09:00 Room Air 10/20/17 07:42 36.8 93 20 132/80 (97) 93 Room Air 10/20/17 05:00 36.4 92 17 149/79 (102) 96 Room Air 10/20/17 00:00 94 Room Air 10/19/17 23:37 36.8 93 20 135/74 (94) 97 Room Air General Appearance: no apparent distress, + pertinent finding (Patient awake and alert, in good spirits, does not appear ill) Eyes: EOMI ENT: hearing grossly normal Neck: supple Respiratory: lungs clear Cardiovascular: regular rate, rhythm Abdomen: non tender, soft, + distended Musculoskeletal: normal tone Neurologic/Psychiatric: alert, oriented x 3 Skin: warm/dry Laboratory Results Last 24 Hours Test 10/20/17 06:36 White Blood Count 3.51 K/uL Red Blood Count 2.98 M/uL Hemoglobin 8.9 g/dL Hematocrit 25.9 % Mean Corpuscular Volume 86.9 fL Mean Corpuscular Hemoglobin 29.9 pg Mean Corpuscular Hemoglobin Concent 34.4 g/dl Platelet Count 10 K/uL RDW Standard Deviation 54.5 fL RDW Coefficient of Variation 18.0 % Nucleated RBC Absolute Count (auto) 0.23 K/uL Neutrophils % (Manual) 3.5 % Lymphocytes % (Manual) 56.1 % Basophils % (Manual) 0.9 % Metamyelocytes % 1.8 % Blast Cells % 37.7 % Nucleated Red Blood Cells % 6.4 % Neutrophils # (Manual) 0.12 K/uL Total Absolute Neutrophils 0.12 K/uL Lymphocytes # (Manual) 1.97 K/uL Total Absolute Lymphocytes 1.97 K/uL Basophils # (Manual) 0.03 K/uL Metamyelocytes # 0.06 K/uL Blast Cells # 1.32 K/uL Platelet Estimate SIGNIFIC DECREASED Tear Drop Cells 1+ Sodium Level 131 mmol/L Potassium Level 4.1 mmol/L Chloride Level 99 mmol/L Carbon Dioxide Level 25 mmol/L Anion Gap 7.0 mmol/L Blood Urea Nitrogen 12 mg/dl Creatinine 0.99 mg/dl Est Creatinine Clear Calc Drug Dose 39.1 ml/min Estimated GFR () 60.2 Estimated GFR (Non- 52.0 BUN/Creatinine Ratio 12.5 Random Glucose 100 mg/dl Calcium Level 8.5 mg/dl Assessment & Plan Palliative Performance Scale: 40 % (1) Palliative care encounter Assessment & Plan: Discuss treatment options, including continued hospital stay for transfusions, patient wishes to return home and would like to return home as soon as possible. Attending physician to discharge patient, referral to hospice made. Discussed events that would eventually lead to patient's demise in order to prepare family for dealing with the possibility of bleeding from several different sites as well as the possibility of strokelike symptoms with an intracranial bleed. (2) AML (acute myelogenous leukemia) Status: Chronic Assessment & Plan: Pancytopenia- transfusion dependent, requiring platelets on a near daily basis. Patient decided to forego any further transfusions and wishes to return home under hospice care (3) Pancytopenia Status: Chronic Assessment & Plan: Transfusion dependent, hemoglobin today was 8.9, platelet count 10,000. Patient wishes no further blood draws or transfusions. Counseling and Coordination Total time 70 minutes with greater than 50% of the time discussing patient's prognosis, hospital course, and goals of care. Coordinated patient's referral to hospice. Patient is currently a DNR, no change in CODE STATUS
--- NOTE | 2017-10-21 08:27 | Discharge Summary ---
Discharge Summary Date of Service October 21, 2017. Discharge Summary Admission Date: October 19, 2017 at 17:45 Discharge Date: October 20, 2017 Discharge Disposition: Home with services (Hospice) Principal Diagnosis: AML-progressive,Pneumonia Secondary Diagnoses/Problems: Please see H&P and Hospital progress note Consultations: Oncology and Palliative Care Medication Reconciliation Continued Medications: Levofloxacin (Levaquin) 500 Mg Tab 1 TAB PO DAILY for 7 Days, #7 TAB Magnesium Chloride-Calcium Car (Nu-Mag 71.5-119 mg) 1 Tab Tab 1 TAB PO DAILY Paroxetine Hcl (Paxil) 10 Mg Tab 10 MG PO DAILY, TAB Probiotic Product (Probiotic) 1 Cap Cap 1 CAP PO TIDM Discontinued Medications: Atorvastatin (Lipitor) 10 Mg Tab 10 MG PO DAILY, 0 Refills Epinephrine (Epipen) 0.3 Mg/0.3 Ml Inj 0.3 MG IM UD, BOX Ergocalciferol (Vitamin D 61962 Unit) 50,000 Unit Cap 68094 UNIT PO WK, CAP takes on Monday Admission Information HPI (per Admitting provider): 87-year-old female who presents the ED with weakness and cough. Patient has history of AML and MDS. She was recently admitted to [facility] 10/08-10/12 for pneumonia. She was initially treated with Vanco and cefepime and was discharged on Augmentin. 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 She received PRBC and platelet transfusion during her admission. Since discharge, she has received 2 platelet transfusions. Patient was seen by PCP for hospital follow-up on 10/17. She had reported worsening cough and chest x-ray was obtained that showed worsening pneumonia. Patient was placed on Levaquin. She reports cough has continued to get worse. It is nonproductive. No fevers or chills. She denies shortness of breath. Since her recent discharge, patient reports increasing abdominal distention and fluid retention. Her appetite has been poor over the past couple of days. No nausea, vomiting , diarrhea, constipation. She denies chest pain and shortness of breath. No lightheadedness, dizziness, diaphoresis, or syncopal events. She has felt generally weak. No urinary symptoms. Of note, patient reports she has trouble swallowing at times and will cough and choke on food and liquids. In the ED, patient's CT shows progressive bilateral lower lobe pneumonia. She is afebrile , labs showed pancytopenia, and mild hyponatremia at 129. She was transfused with 1 unit PRBC and given IVF and IV Zosyn. 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 (2) Breast cancer Permanent Comment: s/p chemo, surgery, and radiation Status: Resolved (3) HLD (hyperlipidemia) Status: Chronic (4) MDS (myelodysplastic syndrome) Status: Chronic (5) Meniere disease Status: Chronic (6) Pancytopenia Status: Chronic Surgical Problems: (1) H/O dilation and curettage Status: Chronic (2) History of cataract surgery Status: Chronic Family History Noncontributory secondary to patient's advanced age Social History Smoking Status: Never Smoker Alcohol Use: none Immunizations History of Influenza Vaccine: Yes Influenza Vaccine Date: Mar 10, 2017 History of Tetanus Vaccine?: Yes Tetanus Immunization Date: Aug 30, 2011 History of Pneumococcal: Yes Pneumococcal Date: October 17, 2016 Allergies Coded Allergies: Alcohol (Verified Allergy, Severe, diarrhea, bloating, bowel irritation, swelling, 10/13/17) Paclitaxel (Verified Allergy, Severe, diarrhea, bowel irritation, swelling , 10/13/17) Pneumococcal Vaccine (Verified Allergy, Severe, swelling, pain, 10/13/17) Polyoxyethylated [place] Oil (Verified Allergy, Severe, bowel irritation, swelling, diarrhea, 10/13/17) Sulfamethoxazole w/Trimethoprim (Verified Adverse Reaction, Severe, unable to recall per patient, 10/13/17) Ezetimibe (Unverified Adverse Reaction, Unknown, "WEAK MUSCLES", 10/13/17) Home Medications Scheduled Atorvastatin (Lipitor), 10 MG PO DAILY Epinephrine (Epipen), 0.3 MG IM UD Ergocalciferol (Vitamin D 94930 Unit), 50,000 UNIT PO WK Levofloxacin (Levaquin), 1 TAB PO DAILY Magnesium Chloride-Calcium Car (Nu-Mag 71.5-119 mg), 1 TAB PO DAILY Paroxetine Hcl (Paxil), 10 MG PO DAILY Probiotic Product (Probiotic), 1 CAP PO TIDM Review of Systems ROS per HPI, all other systems reviewed and negative Physical Exam H&P v2 Physical Exam Vital Signs Date Time Temp Pulse Resp B/P (MAP) Pulse Ox O2 Delivery O2 Flow Rate FiO2 10/19/17 19:07 90 18 150/89 94 10/19/17 19:00 90 18 150/89 94 Room Air 10/19/17 18:25 Room Air 10/19/17 18:04 93 10/19/17 17:30 36.9 86 20 153/89 96 10/19/17 17:30 91 20 153/89 96 Room Air 10/19/17 17:00 37.2 86 20 145/87 96 10/19/17 16:00 91 20 156/76 95 Room Air 10/19/17 16:00 36.9 91 20 156/76 95 10/19/17 15:40 36.9 91 20 169/96 95 10/19/17 15:09 36.9 92 18 162/86 97 10/19/17 14:58 36.6 88 18 140/96 98 10/19/17 14:53 36.7 88 20 163/85 98 10/19/17 13:58 92 16 144/79 96 Room Air 10/19/17 12:25 93 10/19/17 12:09 98 16 135/76 95 Room Air 10/19/17 10:03 36.8 103 20 125/70 94 Room Air General Appearance: WD/WN, no apparent distress Head: normocephalic, atraumatic Eyes: normal inspection, EOMI, sclerae normal ENT: hearing grossly normal, + pertinent finding (Mucous members moist) Neck: supple, no JVD, trachea midline Respiratory/Chest: no respiratory distress, + crackles (Left base, right mid and base) Cardiovascular: regular rate, rhythm, no edema, normal peripheral pulses Abdomen/GI: normal bowel sounds, non tender, soft, no organomegaly, + distended Extremities/Musculoskelatal: normal inspection, no calf tenderness, normal capillary refill Neurologic/Psych: no motor/sensory deficits, alert, normal mood/affect, oriented x 3 Skin: normal color, warm/dry Diagnostics H&P v2 Diagnostics Laboratory Results Results Past 24 Hours Test 10/19/17 11:34 10/19/17 11:37 10/19/17 12:25 Range/Units White Blood Count 2.45 4.8-10.8 K/uL Red Blood Count 2.48 4.2-5.4 M/uL Hemoglobin 7.6 12.0-16.0 g/dL Hematocrit 22.0 37-47 % Mean Corpuscular Volume 88.7 80-100 fL Mean Corpuscular Hemoglobin 30.6 25-34 pg Mean Corpuscular Hemoglobin Concent 34.5 32-36 g/dl Platelet Count 14 130-400 K/uL RDW Standard Deviation 55.5 36.4-46.3 fL RDW Coefficient of Variation 18.0 11.5-14.5 % Nucleated RBC Absolute Count (auto) 0.21 0-0 K/uL Neutrophils % (Manual) 3.5 % Lymphocytes % (Manual) 60.2 % Basophils % (Manual) 0.9 % Blast Cells % 35.4 % Nucleated Red Blood Cells % 8.6 % Neutrophils # (Manual) 0.09 1.4-6.5 K/uL Total Absolute Neutrophils 0.09 1.4-6.5 K/uL Lymphocytes # (Manual) 1.47 1.2-3.4 K/uL Total Absolute Lymphocytes 1.47 1.2-3.4 K/uL Basophils # (Manual) 0.02 0-0.2 K/uL Blast Cells # 0.87 0-0 K/uL Platelet Estimate SIGNIFIC DECREASED Red Blood Cell Morphology Unremarkable Prothrombin Time 11.0 9.0-12.0 SECONDS Prothromb Time International Ratio 1.0 0.9-1.1 Activated Partial Thromboplast Time 26.1 21.0-31.0 SECONDS Partial Thromboplastin Ratio 1.0 Sodium Level 129 136-145 mmol/L Potassium Level 4.1 3.5-5.1 mmol/L Chloride Level 97 98-107 mmol/L Carbon Dioxide Level 26 21-32 mmol/L Anion Gap 6.0 3-11 mmol/L Blood Urea Nitrogen 13 7-18 mg/dl Creatinine 0.86 0.60-1.20 mg/dl Estimated GFR () 71.4 Estimated GFR (Non- 61.6 BUN/Creatinine Ratio 15.1 10-20 Random Glucose 105 70-99 mg/dl Calcium Level 8.8 8.5-10.1 mg/dl Total Bilirubin 0.8 0.2-1 mg/dl Direct Bilirubin 0.3 0-0.2 mg/dl Aspartate Amino Transf (AST/SGOT) 19 15-37 U/L Alanine Aminotransferase (ALT/SGPT) 14 12-78 U/L Alkaline Phosphatase 56 45-117 U/L Troponin I < 0.015 0-0.045 ng/ml Pro-B-Type Natriuretic Peptide 1145 0-1800 pg/ml Total Protein 7.0 6.4-8.2 gm/dl Albumin 3.3 3.4-5.0 gm/dl Lipase 111 73-393 U/L Bedside Lactic Acid Venous 0.81 0.90-1.70 mmol/L Urine Color YELLOW Urine Appearance CLEAR CLEAR Urine pH 8.0 4.5-7.5 Urine Specific [place] 1.011 1.000-1.030 Urine Protein NEG NEG Urine Glucose (UA) NEG NEG Urine Ketones NEG NEG Urine Occult Blood NEG NEG Urine Nitrite NEG NEG Urine Bilirubin NEG NEG Urine Urobilinogen NEG NEG Urine Leukocyte Esterase NEG NEG Microbiology Results 10/19/17 Blood Culture, Received Pending 10/19/17 Blood Culture, Received Pending Diagnostic Radiology CHEST CT IMPRESSION: 1. Progressive consolidation within the bilateral lower lobes posteriorly. This likely represents a pneumonia. 2. Trace bilateral pleural effusions. 3. Progressive mediastinal and right axillary lymphadenopathy consistent with the patient's history of lymphoma. 4. There are 2 stable subcentimeter pulmonary nodules with the largest in the left lower lobe measuring 6 mm. Continued follow-up is recommended. 5. Splenomegaly. CT ABD/PELVIS IMPRESSION: 1. Enlarged lymph nodes in the upper abdomen and small bowel mesentery, which are suspicious for lymphoproliferative disease given the clinical history. Surrounding inflammatory change could represent posttreatment changes in the appropriate clinical setting. 2. Borderline splenomegaly. 3. Significant inflammatory change surrounding the rectum with fascial thickening in the pelvis. This is of uncertain etiology. Correlate with a history of pelvic radiation, which can cause these findings. Alternatively, an infectious proctitis could be considered. 4. Diverticulosis. 5. Bibasilar changes in the lungs suggest chronic aspiration. 6. Anemia. 7. Trace right and small left pleural effusions. CXR IMPRESSION: 1. Persistent bibasilar opacities greater on the right. Aspiration or infection are difficult to exclude. Alternatively, this may represent atelectasis. Cross-sectional imaging could be considered as clinically indicated. Impression H&P v2 Impression Assessment and Plan RECURRENT PNEUMONIA, LIKELY ASPIRATION -Admit to [facility] -Patient presenting with increasing generalized weakness and nonproductive cough , recently admitted to [facility] 10/08-10/12 for pneumonia -received IV antibiotics and then discharged on Augmentin, seen by PCP 2 days ago which chest x-ray showed worsening of the pneumonia and she was placed on Levaquin -In the ED, CT chest shows progressive bibasilar pneumonia -Currently afebrile, saturating well on room air -Question aspiration since patient reports cough and choking with food and liquids -MRSA nasal swab during recent admission was negative -S/P Zosyn in the ED, will continue with and recheck MRSA nasal swab and add Vanco if positive -Does not appear septic -Aspiration precautions and speech evaluation PANCYTOPENIA/MDS/AML -Transfusion dependent -Patient has declined other treatments -S/P 1 unit PRBC in the ED -Monitor CBC daily, provide transfusions as needed -Otology/oncology consult, patient follows with Dr. Ortega HYPONATREMIA -Mild, Na+ 129 -Received IVF in the ED -Baseline sodium runs in the low 130s -Follow sodium levels DYSLIPIDEMIA -Continue statin DVT PROPHYLAXIS -SCDs due to pancytopenia CODE STATUS -Patient is a DNR as per my discussion with her and her daughter who is the bedside. DISPOSITION -In my clinical judgment this beneficiary meets acute admission criteria, established by [facility], that includes being hospitalized through two midnights. Attending addendum 87-year-old female with history of AML, presented with weakness fatigue, cough Reports of recurrent aspiration CT chest shows progressive bilateral pneumonia Empiric antibiotic with Zosyn Speech evaluation requested Pancytopenia/anemia Due to AML Ordered for 1 unit PRBC to be transferred Hematology oncology consulted DNR/DNI Sally Little MD Advanced Directives Existing Living Will: Yes Existing Power of Stock Shaper: Yes Resuscitation Status VTE Prophylaxis Will order VTE Prophylaxis: Yes Physical Exam (per Admitting): General Appearance: WD/WN, no apparent distress Head: normocephalic, atraumatic Eyes: normal inspection, EOMI, sclerae normal ENT: hearing grossly normal, + pertinent finding (Mucous members moist) Neck: supple, no JVD, trachea midline Respiratory/Chest: no respiratory distress, + crackles (Left base, right mid and base) Cardiovascular: regular rate, rhythm, no edema, normal peripheral pulses Abdomen/GI: normal bowel sounds, non tender, soft, no organomegaly, + distended Extremities/Musculoskelatal: normal inspection, no calf tenderness, normal capillary refill Neurologic/Psych: no motor/sensory deficits, alert, normal mood/affect, oriented x 3 Skin: normal color, warm/dry Hospital Course PANCYTOPENIA/MDS/AML -Transfusion dependent -Patient has declined other treatments -S/P 1 unit PRBC in the ED -Otology/oncology consult, patient follows with Dr. Ortega -Discussed with the Family a\\nd the Patient -No more active treatment -Discharge home with Hospice care -Appreciate Palliative care input RECURRENT PNEUMONIA, LIKELY ASPIRATION -Admit to [facility] -Patient presenting with increasing generalized weakness and nonproductive cough , recently admitted to [facility] 10/08-10/12 for pneumonia -received IV antibiotics and then discharged on Augmentin, seen by PCP 2 days ago which chest x-ray showed worsening of the pneumonia and she was placed on Levaquin -In the ED, CT chest shows progressive bibasilar pneumonia -Currently afebrile, saturating well on room air -Question aspiration since patient reports cough and choking with food and liquids -MRSA nasal swab during recent admission was negative -S/P Zosyn in the ED, will continue with and recheck MRSA nasal swab and add Vanco if positive -Does not appear septic -Aspiration precautions and speech evaluation -will continue Levaquin as an OP DYSLIPIDEMIA -Continue statin DVT PROPHYLAXIS -SCDs due to pancytopenia CODE STATUS -Patient is a DNR as per my discussion with her and her daughter who is the bedside. DISPOSITION -Discharge home Has had a long discussion with the daughter about the prognosis and current management The patient was seen by palliative care provider She received 1 unit of platelet today and she does not wish any further transfusion down the line Family members and the patient wanted to go home today with transition to hospice care from tomorrow This was discussed with the patient and the daughter and the patient was discharged home in a reasonably stable condition Total time spent on discharge = 35 This includes examination of the patient, discharge planning, medication reconciliation, and communication with other providers. Discharge Instructions Date of Service October 20, 2017. Admission Reason for Admission: Pneumonia Discharge Discharge Diagnosis / Problem: AML-progressive,Pneumonia Discharge Goals Goal(s): Prevent Disease Progression Activity Recommendations Activity Limitations: resume your previous activity . Instructions / Follow-Up Instructions / Follow-Up Hospice care at home Current Hospital Diet Patient's current hospital diet: Regular Diet Discharge Diet Recommended Diet: Regular Diet Pending Studies Studies pending at discharge: no Medical Emergencies . Who to Call and When: Medical Emergencies: If at any time you feel your situation is an emergency, please call 911 immediately. . Non-Emergent Contact Non-Emergency issues call your: Primary Care Provider (And Hospice acre) . Past History Medical & Surgical History: (1) AML (acute myelogenous leukemia) (2) MDS (myelodysplastic syndrome) (3) Pancytopenia (4) Breast cancer (5) Meniere disease (6) HLD (hyperlipidemia) (7) H/O dilation and curettage (8) History of cataract surgery . "Provider Documentation" section prepared by Tereza Medina. . <Electronically signed by Tereza Medina M.D.> Signed: 10/20/17 [id number] Additional Copies To Breanna Ochoa,
[2017-10-21] MEDS ORDERED: ERGOCALCIFEROL 50,000 INTER.UNIT CAP PO SCH (09:00)
== END 2017-10-20 19:35 | disposition hospice, home (50) | DRG 834 ==
LOC: C.EDA 10:07 → C.4E 17:45 → ENRESERV 18:02
PROVIDERS: ADMIT Hospitalist; ATTEND Internal Medicine
DX: C92.00 Acute myeloblastic leukemia, not having achieved remission (principal); J69.0 Pneumonitis due to inhalation of food and vomit; D61.89 Other specified aplastic anemias and other bone marrow failure syndromes; C85.90 Non-Hodgkin lymphoma, unspecified, unspecified site; E87.1 Hypo-osmolality and hyponatremia; D46.9 Myelodysplastic syndrome, unspecified; Z51.5 Encounter for palliative care; E78.5 Hyperlipidemia, unspecified; Z66 Do not resuscitate; Z99.89 Dependence on other enabling machines and devices; Z87.01 Personal history of pneumonia (recurrent); Z79.899 Other long term (current) drug therapy; Z88.2 Allergy status to sulfonamides; Z88.7 Allergy status to serum and vaccine; Z88.8 Allergy status to other drugs, medicaments and biological substances; Z91.048 Other nonmedicinal substance allergy status